=== PATIENT | female | born 1995 | race Native Hawaiian/Other Pacific Islander ===

== ENCOUNTER 2022-02-05 08:34 | Outpatient (CLI) | payer OTHER, SELFPAY ==
[2022-02-05 08:50] LABS: Hemoglobin* 10.8 gm/dL (12.0-16.0)
[2022-02-06 20:13] LABS: Rapid Plasma Reagin (RPR) Non Reactive (Non Reactive)
== END 2022-02-05 08:35 | disposition home or self-care (01) ==
LOC: NFLDREF 08:35
PROVIDERS: PCP Physician Assistant Medical; Visit Provider Obstetrics & Gynecology
DX: Z34.90 Encounter for supervision of normal pregnancy, unspecified, unspecified trimester (principal)
CPT/HCPCS: 85018; 86592

== ENCOUNTER 2022-02-09 08:35 | Outpatient (CLI) | payer OTHER, SELFPAY ==
[2022-02-09 13:58] LABS: Glucose 1 Hour Gest 173 mg/dl (70-180)
[2022-02-09 17:28] LABS: Glucose GTT-Gestational 3 Hr 85 mg/dl (70-140)
[2022-02-12 15:26] LABS: Glucose Fasting Check 88 mg/dl (60-115)
--- OUTSIDE RECORDS SUMMARY | 2022-03-02 17:13 | XMS_ITS | Encounter Summary ---
:1995 Author Organization [facility] Address [address] [place] [id number] Care Team Providers Name Role Phone Doctor, None Primary Care Provider Unavailable Caterina Elkins MD Primary Care Provider [phone] Reason for Visit Reason Comments Well Child Encounter Details Date Type Department Care Team Description 02/22/2013 Office Visit [facility] Caterina Elkins infant or child health check (Primary Dx); Clinic Héctor Pineda MD Seasonal allergic rhinitis [address] [place] [id number] [phone] (Wo rk) Social History Tobacco Use Types Packs/Day Years Used Date Never Smoker Alcohol Use Standard Drinks/Week Comments No 0 (1 standard drink = 0.6 oz pure alcoho l) Sex Assigned at Date Recorded Not on file documented as of this encounter Last Filed Vital Signs Vital Sign Reading Time Taken Comments Blood Pressure 110/60 02/22/2013 8:33 AM CDT Pulse - - Temperature - - Respiratory Rate - - Oxygen Saturation - - Inhaled Oxygen Concentration - - Weight 79.8 kg (176 lb) 02/22/2013 8:33 AM CDT Height 175.3 cm (5' 9) 02/22/2013 8:33 AM CDT Body Mass Index 25.99 02/22/2013 8:33 AM CDT Body Mass Index Percentile 89.93 % 02/22/2013 8:33 AM CD T Growth Chart: CDC (Girls, 2-20 Years) documented in this encounter Patient Instructions Patient InstructionsCaterina Elkins MD - 02/22/2013 8:47 AM CDT 17 year old Well Child Check Growth Chart Detail 04/05/2006 04/05/2006 07/11/2010 07/11/2010 02/22/2013 Height - 4' 7.75 - 5' 7.75 5' 9 Weight - 95 lb - 166 lb 176 lb BMI (Calculated) - - - 25.48 26.05 Height percentile 91.5 - 98.0 - 97.6 Weight percentile 96.3 - 97.5 - 95.8 Body Mass Index percentile 94.5 - 93.3 - 89.9 Percentiles: (see actual numbers above) Weight: 95.81%ile based on CDC 2-20 Years qtcqdu-sgp-rks data. Length: 97.58%ile based on CDC 2-20 Years [id number] data. BMI: 89.9%ile based on CDC 2-20 Years BMI-for-age data. Teen Immunizations: Vaccine How Often Disease Prevented Recommended For: Hepatitis A (HepA) 2 doses Hepatitis A, an infection that can cause acute liver inflammation and jaundice (yellowing of the skin and whites of the eyes) Anyone who hasn???t been vaccinated Human Papillomavirus (HPV) 3 doses Human papillomavirus, a virus that causes genital warts and may increase risk of cervical, vaginal, and vulvar cancers Girls starting at age 11 or 12 (minimum age 9);boys between ages 9 and 18 Next office visit: At 18 years of age. No shots required, but she should get a yearly influenza vaccine, usually in April or May. Well Child Checkup: 14-18 Years During the teen years, it???s important to keep having yearly checkups. Your teen may be embarrassedabout having a checkup. Reassure your teen that the exam is normal and necessary. Also be aware thatthe healthcare provider may ask to talk with your child without you in the exam room. Stay involved in your teen???s life. Make sure your teen knows you???re always there when he or she needs to talk. School and Social Issues Here are some topics you, your teen, and the healthcare provider may want to discuss during this visit: ?? School performance. How is your child doing in school? Is homework finished on time? Does your child stay organized? These are skills you can help with. Keep in mind that a drop in school performance can be a sign of other problems. ?? Friendships. Do you like your child???s friends? Do the friendships seem healthy? Make sure to talk to your teen about who his or her friends are and how they spend time together. Peer pressure can be a problem among teenagers. ?? Life at home. How is your child???s behavior? Does he or she get along with others in the family?Is he or she respectful of you, other adults, and authority? Does your child participate in family events, or does he or she withdraw from other family members? ?? Risky behaviors. Many teenagers are curious about drugs, alcohol, smoking, and sex. Talk openly about these issues. Answer your child???s questions, and don???t be afraid to ask questions of your own. If you???re not sure how to approach these topics, talk to the healthcare provider for advice. Puberty Your teen may still be experiencing some of the changes of puberty, such as: ?? Acne and body odor. Hormones that increase during puberty can cause acne (pimples) on the face and body. Hormones can also increase sweating and cause a stronger body odor. ?? Body changes. The body grows and matures during puberty. Hair will grow in the pubic area and on other parts of the body. Girls grow breasts and menstruate (have monthly periods). A boy???s voice changes, becoming lower and deeper. As the penis matures, erections and wet dreams will start to happen. Talk to your teen about what to expect, and help him or her deal with these changes when possible. ?? Emotional changes. Along with these physical changes, you???ll likely notice changes in your teen???s personality. He or she may develop an interest in dating and becoming ???more than friends?? with other kids. Also, it???s normal for your teen to be collier. Try to be patient and consistent. Encourage conversations, even when he or she doesn???t seem to want to talk. No matter how your teen acts,he or she still needs a parent. Nutrition and Exercise Tips Your teenager likely makes his or her own decisions about what to eat and how to spend free time. You can???t always have the final say, but you can encourage healthy habits. Your teen should: ?? Get at least 30-60 minutes of activity every day. This time can be broken up throughout the day. After-school sports, dance or martial arts classes, riding a bike, or even walking to school or a friend???s house counts as activity. ?? Limit ???screen time?? to 1-2 hours each day. This includes time spent watching TV, playing video games, using the computer, and texting. If your teen has a TV, computer, or video game console in the bedroom, consider replacing it with a music player. ?? Eat healthy. Your child should eat fruits, vegetables, lean meats, and whole grains every day. Less healthy foods--like danish fries, candy, and chips--should be eaten rarely. Some teens fall into the trap of snacking on junk food and fast food throughout the day. Make sure the kitchen is stocked with healthy options for after-school snacks. If your teen does choose to eat junk food, consider making him or her buy it with his or her own money. ?? Eat 3 meals a day. A lot of kids skip breakfast and even lunch. Not only is this unhealthy, it can also hurt school performance. Make sure your teen eats breakfast. Prepare a bag lunch to bring to school (or have your child make it). ?? Have at least one family meal with you each day. Busy schedules often limit time for sitting and talking. Sitting and eating together allows for family time. It also lets you see what and how your child eats. ?? Limit soda and juice drinks. A small soda is okay once in a while. But it???s no substitute for healthier drinks. Sports and juice drinks are no better. Most of the time, water and low-fat or nonfatmilk are the best choices. Hygiene Tips ?? Teenagers should bathe or shower daily and use deodorant. ?? Let the healthcare provider know if you or your teen have questions about hygiene or acne. ?? Bring your teen to the dentist at least twice a year for teeth cleaning and a checkup. ?? Remind your teen to brush and floss his or her teeth before bed. Sleeping Tips During the teen years, sleep patterns may change. Many teenagers have a hard time falling asleep, which can lead to sleeping late the next morning. Here are some tips to help your teen get the rest he or she needs: ?? Encourage your teen to keep a consistent bedtime, even on weekends. Sleeping is easier when the body follows a routine. Don???t let your teen stay up too late at night or sleep in too long in the morning. ?? Help your teen wake up, if needed. Go into the bedroom, open the blinds, and get your teen out ofbed--even on weekends or during school vacations. ?? Being active during the day will help your child sleep better at night. ?? Discourage use of the TV, computer, or video games for at least an hour before your teen goes to bed. (This is good advice for parents, too!) ?? Make a rule that cell phones must be turned off at night. Safety Tips ?? Set rules for how your teen can spend time outside of the house. Give your child a nighttime curfew. If your child has a cell phone, check in periodically by calling to ask where he or she is and what he or she is doing. ?? Make sure cell phones and portable music players are used safely and responsibly. Help your teen understand that it is dangerous to talk on the phone, text, or listen to music with headphones while he or she is riding a bike or walking outdoors, especially when crossing the street. ?? Constant loud music can cause hearing damage, so monitor your teen???s music volume. Many music players let you set a limit for how loud the volume can be turned up. Check the directions for details. ?? When your teen is old enough for a airport driver???s license, encourage safe driving. Teach your teen toalways wear a seat belt, drive the speed limit, and follow the rules of the road. Do not allow your teenager to text or talk on a cell phone while driving. (And don???t do this yourself! Remember, you set an example.) ?? Set rules and limits around driving and use of the car. If your teen gets a ticket or has an accident, there should be consequences. Driving is a privilege that can be taken away if your child doesn???t follow the rules. ?? Teach your child to make good decisions about drugs, alcohol, sex, and other risky behaviors. Work together to come up with strategies for staying safe and dealing with peer pressure. And make sure your teenager knows he or she can always come to you for help. Tests and Vaccinations If you have a strong family history of high cholesterol, your teen???s blood cholesterol may be tested at this visit. Based on recommendations from the [employer], at this visityour child may receive the following vaccinations: ?? Hepatitis B ?? Meningococcal ?? Tetanus, diphtheria, and pertussis Recognizing Signs of Depression It???s normal for teenagers to have extreme mood swings. This is the result of their changing hormones. It???s also just a part of growing up. But sometimes a teenager???s mood swings are signs of a larger problem. If your teen is always depressed, you should be concerned. Other signs of depression include: ?? Use of drugs or alcohol ?? Problems in school and at home ?? Frequent episodes of running away ?? Thoughts or talk of or suicide ?? Withdrawal from family and friends ?? Sudden changes in eating or sleeping habits ?? Sexual promiscuity or unplanned ?? Hostile behavior or rage ?? Loss of pleasure in life Depressed teens can be helped with treatment. Talk to your child???s healthcare provider. Or check with your local mental health center, social service agency, or hospital. Assure your teen that his orher pain can be eased. Offer your love and support. And if your teen talks about or suicide, seek help right away. Next checkup at: PARENT NOTES: ?? [phone] [facility], [address] [place] [address], [place] [address]. All rights reserved. This information is not intended as a substitute for professional medical care. Always follow your healthcare professional's instructions. documented in this encounter Progress Notes Caterina Elkins MD - 02/22/2013 8:34 AM CDT Sonia Allen is a 17 year old female here for a routine health maintenance visit, accompanied by her mother and sister. QUESTIONS/CONCERNS: Bilateral ear pain / plugged FAMILY/ SOCIAL HISTORY Child lives with: mother, brother and 2 sisters Recent family changes/social stressors: none noted Family History: No changes since last physical Language(s) spoken at home: Kyr[place]z MNV[facility] does apply for the following reason: [facility] Care Program (MHCP) enrollee: [place] [facility] ([place]), [facility], or a Prepaid Medical Assistance Program (PMAP) (ages covered = 0-18). ENVIRONMENTAL RISK ASSESSMENT Is your child around anyone who smokes? NO Seat belt? YES Bike/sport helmet? YES TB exposure? NO Pets in the home? NO Guns/firearms in the home? no Water source: BOTTLED WATER CHICKEN POX HISTORY: Patient has had chicken pox TEEN RISK SCREEN: Form not indicated at this visit. VISION Wears glasses? YES, glasses worn for testing Right eye: 20/40 Left eye: 20/30 Both eyes: 20/20 Question Validity: no HEARING Right Ear: 500 Hz: RESPONSE- on Level: 20 db 1000 Hz: RESPONSE- on Level: 20 db 2000 Hz: RESPONSE- on Level: 20 db 4000 Hz: RESPONSE- on Level: 20 db Left Ear: 500 Hz: RESPONSE- on Level: 20 db 1000 Hz: RESPONSE- on Level: 20 db 2000 Hz: RESPONSE- on Level: 20 db 4000 Hz: RESPONSE- on Level: 20 db Question Validity: no REQUIRED VITAL SIGNS COMPLETED: yes BP 110/60 Ht 5' 9 (1.753 m) Wt 176 lb (79.833 kg) BMI 25.99 kg/m2 [facility] 02/13/2013 97.58%ile based on CDC 2-20 Years pleckie-esh-lmg data. 95.81%ile based on CDC 2-20 Years ewqvto-yqk-psx data. 89.9%ile based on CDC 2-20 Years BMI-for-age data. No sports physical needed. Staff signature: Zena Boggs LPN HEALTH HISTORY SINCE LAST VISIT No surgery, major illness or injury since last physical exam Cardiac risk assessment: none Immunization History Administered Date(s) Administered ? ? DTAP (<7y) 1997, 1997, 1997, 06/09/2001, 03/25/2004 ??? HIB 1997, 1997, 1997 ??? Hepatitis A 07/11/2010 ??? Hepatitis B 1997, 1997, 03/20/1998 ??? Human Papilloma Virus 07/11/2010 ??? IPV 1997, 1997, 06/09/2001, 03/25/2004 ??? MMR 06/09/2001, 03/25/2004 ??? Meningococcal (Menactra) 07/11/2010 ??? TDAP (ADACEL AGES 11-64) 07/11/2010 ??? Varicella Not Indicated - By Hx 03/26/2000 Allergies Allergen Reactions ??? No Known Allergies DAILY ACTIVITIES NUTRITION: good appetite, eats variety of foods, dairy/ calcium: , meat, fruits and vegetables SLEEP No concerns, sleeps well through night ELIMINATION Normal bowel movements and Normal urination EXERCISE/ RECREATion: walking ACTIVITIES: Age appropriate activities EDUCATION / EMPLOYMENT Concerns: no School: [employer] Grade:9th MENTAL HEALTH Concerns: no MENSTRUAL HISTORY Normal SEXUALITY Dating: no Sexual activity: no SUBSTANCE ABUSE Smoking: no Alcohol: no Drugs: no VISION: For details see above, normal HEARING: For details see above, normal ROS GENERAL: See health history, nutrition and daily activities SKIN: No rash, hives or significant lesions HEENT: Hearing/vision: see above. No eye redness/discharge, nasal congestion, sneezing, snoring RESP: No cough, wheezing, SOB CV: No cyanosis, palpitations, syncope GI: See nutrition and elimination : See elimination MS: No swelling, arthralgia, weakness, gait problem NEURO: No headaches PSYCH: See development and behavior, or mental health EXAM GENERAL: Active, alert, in no acute distress. SKIN: Clear. No significant rash, abnormal pigmentation or lesions HEAD: Normocephalic EYES: Sharp optic discs. Pupils equal, round, reactive, Extraocular muscles intact. Normal conjunctivae. EARS: Normal canals. Tympanic membranes are normal; villa and translucent. NOSE: ENT: nasal mucosa appears pale and edematous MOUTH/THROAT: Clear. No oral lesions. Teeth without obvious abnormalities. NECK: Supple, no masses. No thyromegaly. LYMPH NODES: No adenopathy LUNGS: Clear. No rales, rhonchi, wheezing or retractions HEART: Regular rhythm. Normal S1/S2. No murmurs. Normal pulses. ABDOMEN: Soft, non-tender, not distended, no masses or hepatosplenomegaly. Bowel sounds normal. NEUROLOGIC: No focal findings. Cranial nerves grossly intact: DTR's normal. Normal gait, strength and tone BACK: Spine is straight, no scoliosis. EXTREMITIES: Full range of motion, no deformities -F: Normal female external genitalia, Jelani stage 4. BREASTS: Jelani stage 4. No abnormalities. ANTICIPATORY GUIDANCE The following topics were discussed: SOCIAL/ FAMILY: Peer pressure Increased responsibility Parent/ teen communication School/ homework NUTRITION: Healthy food choices Calcium Weight management HEALTH / SAFETY: Adequate sleep/ exercise Dental care Drugs, ETOH, smoking Body image Seat belts Bike/ sport helmets SEXUALITY: Menstruation Dating/ relationships Encourage abstinence ASSESSMENT Well teen with normal growth and development 1. Allergic rhinitis. Will try OTC antihistamine per EPIC orders. Call or return if not improving in1-2 weeks. PLAN 89.9%ile based on CDC 2-20 Years BMI-for-age data. No weight concerns. Immunizations ?? No previous significant reactions to immunizations. Parent has no questions or concerns about thevaccines administered today. See other orders in Epic[employer] Referrals/Ongoing Specialty care: No Dental visit recommended: Yes RTC: 18 year RHM visit Caterina Elkins M.D. Pediatrics documented in this encounter Nursing Notes 02/22/2013 9:00 AM CDT >> ZENAIDA James Feb 22, 2013 8:43 AM VISION:wears glasses for reading,pt did not have glasses for test Right eye: 20/30 Left eye: 20/30 Right & Left eyes: 20/40 HEARING FREQUENCY: Right Ear: 500 Hz: 20 db HL 1000 Hz: 20 db HL 2000 Hz: 20 db HL 4000 Hz: 20 db HL Left Ear: 500 Hz: 20 db HL 1000 Hz: 20 db HL 2000 Hz: 20 db HL 4000 Hz: 20 db HL >> SLIM BOGGS Erika Feb 22, 2013 8:37 AM Patient presents with: Well Child Initial BP 110/60 Ht 5' 9 (1.753 m) Wt 176 lb (79.833 kg) BMI 25.99 kg/m2 LMP 02/13/2013 Estimated Body mass index is 25.99 kg/(m^2) as calculated from the following: Height as of this encounter: 5' 9(1.753 m). Weight as of this encounter: 176 lb(79.833 kg). BP completed using cuff size: regular documented in this encounter Plan of Treatment Not on filedocumented as of this encounter Procedures Procedure Name Priority Date/Time Associated Diagnosis Comme nts HC SCREENING TEST, Routine 02/22/2013 9:04 AM CDT Routine infa nt or child PURE TONE, AIR ONLY health check documented in this encounter Visit Diagnoses Diagnosis Routine or child health check - P rimary Seasonal allergic rhinitis Allergic rhinitis, cause unspecified documented in this encounter Care Teams Donkey Doctor Relationship Specialty Start Date End Date Doctor, Juan, PCP - General 09/08/01 03/09/13 Caterina Elkins MD PCP - General Pediatrics 03/10/13 Solange E AMANDA [address] [address] documented as of this encounter
--- OUTSIDE RECORDS SUMMARY | 2022-03-02 17:13 | XMS_ITS | Encounter Summary ---
:1995 Author Organization [facility] Address [address] [place] [address] Care Team Providers Name Role Phone Doctor, None Primary Care Provider Unavailable Reason for Visit Reason Comments Derm Problem Encounter Details Date Type Department Care Team Description 03/23/2004 Office Visit [facility] Surekha Garrido [facility] Haugan MD Jamia (Primary Dx) [address] [facility] [place], [place] [address] [facility] [address] [place], [place] [phone] (Wo rk) Social History Tobacco Use Types Packs/Day Years Used Date Never Assessed Sex Assigned at Date Recorded Not on file documented as of this encounter Last Filed Vital Signs Vital Sign Reading Time Taken Comments Blood Pressure - - Pulse - - Temperature 36.7 ??C (98 ??F) 03/23/2004 2:00 PM CDT Respiratory Rate - - Oxygen Saturation - - Inhaled Oxygen Concentration - - Weight 28.8 kg (63 lb 8 oz) 03/23/2004 2:00 PM CDT Height 128.3 cm (4' 2.5) 03/23/2004 2:00 PM CDT Body Mass Index 17.51 03/23/2004 2:00 PM CDT Body Mass Index Percentile 84.50 % 03/23/2004 2:00 PM CD T Growth Chart: CDC (Girls, 2-20 Years) documented in this encounter Progress Notes 03/23/2004 2:00 PM CDT Sonia Allen is a 8 year old female here with maternal grandmother with concerns regarding rash. Started 4 days ago, spreading. Started on back. Large area, now with multiple smaller lesions on ba ck, neck and shoulders. Rash does seem to itch. No current treatments. She did recently [place]. No current illness, no fever, no cold sx. OBJECTIVE: Temp (Src) 98 (Or al) Ht 4' 2.5 (1.28m) Wt 63 lbs 8 oz (28.8kg) General appearance: healthy, alert and no distres s Eyes: normal Ears: R TM - normal: no effusions, no erythema, and normal landmarks, L TM - normal: n o effusions, no erythema, and normal landmarks Nose: normal Oropharynx: moist mucosa, no erythema or exudates Neck: normal, supple and no adenopathy Lungs: clear to auscultation bilaterally Heart: regul ar rate and rhythm and no murmurs, clicks, or gallops Skin: large oval shaped lesion right side chest with raised border and scaling present. Multiple smaller lesions on neck, shoulders and face. SESSMENT: Tinea corporis vs pityriasis rosea PLAN: fungal culture sent. Will try treatment with ant ifungal cream, await culture. Follow up if worsening or increased itching. Discussed pityriasis and resolution in 4-6 weeks. documented in this encounter Nursing Notes 03/23/2004 2:00 PM CDT >> LELIA JOHNSON 03/23/2004 1:48 pm Patient here with bumpy rash all over her body. Does not complain of itching, noticed it yesterday. Lelia Johnson WELDER 2ND SHIFT documented in this encounter Plan of Treatment Not on filedocumented as of this encounter Procedures Procedure Name Priority Date/Time Associated Diagnosis Comme nts HCL CULTURE, Routine 03/23/2004 2:29 PM Skin Disorders Nec Res ults for this FUNGUS, CDT procedure are i n SKIN,HAIR,NAIL the results section. documented in this encounter Results FUNGUS CULTURE, SKIN,HAIR,NAIL (03/23/2004 2:29 PM CDT) [facility] Method Time Signature Specimen Skin [facility] Description [facility] Culture Micro No growth [facility] after 28 UNIV[facility]ITY days [facility] Report status FINAL [facility] [id number] [facility] Specimen Anatomical Collection Method Collection Time Receive d Time (Source) Location / / Volume Laterality SPECIMEN FROM SKIN 03/23/2004 2:29 PM 2:34 / Unknown CDT PM CDT Surekha Garrido MD LABORATORY Performing Organization Address City/State/ZIP Code Phon e Number [facility] [address] [place] [address] [facility] documented in this encounter Visit Diagnoses Diagnosis Other specified disorder of skin - Prima ry documented in this encounter Care Teams Associate Professor Of Kinesiology Relationship Specialty Start Date End Date Doctor, None, PCP - General 09/08/01 03/09/13 documented as of this encounter
--- OUTSIDE RECORDS SUMMARY | 2022-03-02 17:13 | XMS_ITS | Encounter Summary ---
:1995 Author Organization [place] Address [address] [place] [address] Care Team Providers Name Role Phone Caterina Elkins MD Primary Care Provider [phone] Reason for Visit Reason Comments Well Child 18 year px. Encounter Details Date Type Department Care Team Description 03/13/2014 Office Visit [facility] Karyna Bhandari or child health check (Primary Dx); [facility] MD Linda Allergic state, initial encounter; [address] Dietary surve illance and counseling [facility] [address] [place] [phone] Social History Tobacco Use Types Packs/Day Years Used Date Never Smoker Smokeless Tobacco: Never Used Alcohol Use Standard Drinks/Week Comments No 0 (1 standard drink = 0.6 oz pure alcoho l) Sex Assigned at Date Recorded Not on file documented as of this encounter Last Filed Vital Signs Vital Sign Reading Time Taken Comments Blood Pressure 116/72 03/13/2014 9:43 AM CDT Pulse - - Temperature 36.9 ??C (98.4 ??F) 03/13/2014 9:43 AM CDT Respiratory Rate - - Oxygen Saturation - - Inhaled Oxygen Concentration - - Weight 80.3 kg (177 lb) 03/13/2014 9:43 AM CDT Height 175.3 cm (5' 9) 03/13/2014 9:43 AM CDT Body Mass Index 26.14 03/13/2014 9:43 AM CDT Body Mass Index Percentile 88.56 % 03/13/2014 9:43 AM CD T Growth Chart: CDC (Girls, 2-20 Years) documented in this encounter Patient Instructions Patient InstructionsFaby Celeste, GUARD CHIEF - 03/13/2014 9:35 AM CDT Preventive Care at the 15 - 18 Year Visit Growth Percentiles & Measurements Weight: 177 lbs 0 oz / 80.29 kg / 95%ile based on [facility] 2-20 Years [id number] data using vitals from 03/13/2014. Length: 5' 9 / 175.3 cm 97%ile based on [facility] 2-20 Years [id number] data using vitals from 03/13/2014. BMI: Body mass index is 26.13 kg/(m^2). 89%ile based on [facility] 2-20 Years BMI-for-age data using vitalsfrom 03/13/2014. Blood Pressure: 53.3% systolic and 62.8% diastolic of BP percentile by age, sex, and height. Next Visit ??? Continue to see your health care provider every one to two years for preventive care. Nutrition ??? It???s very important to eat breakfast. This will help you make it through the morning. ??? Sit down with your family for a meal on a regular basis. ??? Eat healthy meals and snacks, including fruits and vegetables. Avoid salty and sugary snack foods. ??? Be sure to eat foods that are high in calcium and iron. ??? Avoid or limit caffeine (often found in soda pop). Sleeping ??? Your body needs about 9 hours of sleep each night. ??? Keep screens (TV, computer, and video) out of the bedroom / sleeping area. They can lead to poorsleep habits and increased obesity. Health ??? Limit TV, computer and video time. ??? Set a goal to be physically fit. Do some form of exercise every day. It can be an active sport like skating, running, swimming, a team sport, etc. ??? Try to get 30 to 60 minutes of exercise at least three times a week. ??? Make healthy choices: don???t smoke or drink alcohol; don???t use drugs. In your teen years, you can expect . . . ??? To develop or strengthen hobbies. ??? To build strong friendships. ??? To be more responsible for yourself and your actions. ??? To be more independent. ??? To set more goals for yourself. ??? To use words that best express your thoughts and feelings. ??? To develop self-confidence and a sense of self. ??? To make choices about your education and future career. ??? To see big differences in how you and your friends grow and develop. ??? To have body odor from perspiration (sweating). Use underarm deodorant each day. ??? To have some acne, sometimes or all the time. (Talk with your doctor or nurse about this.) ??? Most girls have finished going through puberty by 15 to 16 years. Often, boys are still growing and building muscle mass. Sexuality ??? It is normal to have sexual feelings. ??? Find a supportive person who can answer questions about puberty, sexual development, sex, abstinence (choosing not to have sex), sexually transmitted diseases (STDs) and control. ??? Think about how you can say no to sex. Safety ??? Accidents are the greatest threat to your health and life. ??? Avoid dangerous behaviors and situations. For example, never drive after drinking or using drugs. Never get in a car if the regional company hazmat tanker driver has been drinking or using drugs. ??? Always wear a seat belt in the car. When you drive, make it a rule for all passengers to wear seat belts, too. ??? Stay within the speed limit and avoid distractions. ??? Practice a fire escape plan at home. Check smoke detector batteries twice a year. ??? Keep electric items (like blow dryers, razors, curling irons, etc.) away from water. ??? Wear a helmet and other protective gear when bike riding, skating, skateboarding, etc. ??? Use sunscreen to reduce your risk of skin cancer. ??? Learn first aid and CPR (cardiopulmonary resuscitation). ??? Avoid peers who try to pressure you into risky activities. ??? Learn skills to manage stress, anger and conflict. ??? Do not use or carry any kind of weapon. ??? Find a supportive person (teacher, parent, health provider, counselor) whom you can talk to whenyou feel sad, angry, lonely or like hurting yourself. ??? Find help if you are being abused physically or sexually, or if you fear being hurt by others. As a teenager, you will be given more responsibility for your health and health care decisions. While your parent or guardian still has an important role, you will likely start spending some time alonewith your health care provider as you get older. Some teen health issues are actually considered confidential, and are protected by law. Your health care team will discuss this and what it means with you. Our goal is for you to become comfortable and confident caring for your own health. documented in this encounter Progress Notes Karyna Bhandari MD - 03/13/2014 9:35 AM CDT SUBJECTIVE: Sonia Allen is a 18 year old female, here for a routine health maintenance visit, accompanied by her mother and sister. Patient was roomed by: Faby Celeste CMA QUESTIONS/CONCERNS: allergies, feels like there is water in left ear. HOME Family members in house: mother, brother and 2 sisters Language(s) spoken at home: Burmese Recent family changes/social stressors: none noted HEALTH RISKS TB exposure: No Cardiac risk assessment: none VISION Wears glasses? YES, glasses NOT worn for testing Right eye: 20/40 Left eye: 20/70 Both eyes: 20/40 Question Validity: no HEARING Right Ear: 500 [...] on Level: 20 db Question Validity: no DENTAL Dental health HIGH risk factors: none Water source: city water SPORTS QUESTIONNAIRE: School: [employer] Grade: 10 Sports: Cheerleading Sports Questionnaire sent to scan, see letter. HNSAFETY Car seat belt always worn: Yes ELECTRONIC MEDIA < 2 hours/ day EDUCATION School: [employer] Grade: 10 School performance / Academic skills: doing well in school Concerns: no ACTIVITIES Do you get at least 60 minutes per day of physical activity, including time in and out of school: Yes Extra-curricular activities: Organized / team sports: cheerleading DIET Do you get at least 4 helpings of a fruit or vegetable every day: Yes Do you eat breakfast every day: Yes How many servings of juice, non-diet soda, punch or sports drinks per day: some Does your family eat out (take out, delivery, fast food, restaurant) more than one day per week: No SLEEP No concerns, sleeps well through night No Known Allergies Immunization History Administered Date(s) Administered ? ? DTAP (<7y) 1997, 1997, 1997, 06/09/2001, 03/25/2004 ??? HIB 1997, 1997, 1997 ??? Hepatitis A 07/11/2010, 02/22/2013 ??? Hepatitis B 1997, 1997, 03/20/1998 ??? Human Papilloma Virus 07/11/2010, 02/22/2013, 07/19/2013 ??? IPV 1997, 1997, 06/09/2001, 03/25/2004 ??? MMR 06/09/2001, 03/25/2004 ??? Meningococcal (Menactra) 07/11/2010, 07/19/2013 ??? TDAP (ADACEL AGES 11-64) 07/11/2010 ??? Varicella Not Indicated - By Hx 03/26/2000 Patient Active Problem List Diagnosis ??? MYOPIA ??? Seasonal allergic rhinitis HEALTH HISTORY SINCE LAST VISIT No surgery, major illness or injury since last physical exam DRUGS Smoking: no Passive smoke exposure: no Alcohol: no Drugs: no SEXUALITY Sexual attraction: opposite sex Sexual activity: No control: abstinence STD: no Unwanted sex: never PSYCHO-SOCIAL/DEPRESSION General screening: No screening tool used No concerns Patient Active Problem List Diagnosis ??? MYOPIA ??? Seasonal allergic rhinitis No Known Allergies Immunization History Administered Date(s) Administered ? ? DTAP (<7y) 1997, 1997, 1997, 06/09/2001, 03/25/2004 ??? HIB 1997, 1997, 1997 ??? Hepatitis A 07/11/2010, 02/22/2013 ??? Hepatitis B 1997, 1997, 03/20/1998 ??? Human Papilloma Virus 07/11/2010, 02/22/2013, 07/19/2013 ??? IPV 1997, 1997, 06/09/2001, 03/25/2004 ??? MMR 06/09/2001, 03/25/2004 ??? Meningococcal (Menactra) 07/11/2010, 07/19/2013 ??? TDAP (ADACEL AGES 11-64) 07/11/2010 ??? Varicella Not Indicated - By Hx 03/26/2000 ROS GENERAL: See health history, nutrition and daily activities SKIN: No rash, hives or significant lesions HEENT: Hearing/vision: see above. No eye, nasal, ear symptoms. RESP: No cough or other concerns CV: No concerns GI: See nutrition and elimination. No concerns. : See elimination. No concerns NEURO: No headaches or concerns. OBJECTIVE: EXAM BP 116/72 Temp(Src) 98.4 ??F (36.9 ??C) (Oral) Ht 5' 9 (1.753 m) Wt 177 lb (80.287 kg) BMI 26.13 kg/m2 LMP 03/06/2014 97%ile based on CDC 2-20 Years ukhmpja-lch-nfz data using vitals from 03/13/2014. 95%ile based on CDC 2-20 Years ssgrsg-yrx-fyd data using vitals from 03/13/2014. 89%ile based on CDC 2-20 Years BMI-for-age data using vitals from 03/13/2014. 53.3% systolic and 62.8% diastolic of BP percentile by age, sex, and height. GENERAL: Active, alert, in no acute distress. SKIN: Clear. No significant rash, abnormal pigmentation or lesions HEAD: Normocephalic EYES: Sharp optic discs. Pupils equal, round, reactive, Extraocular muscles intact. Normal conjunctivae. EARS: Normal canals. Tympanic membranes are normal; villa and translucent. NOSE: Normal without discharge. MOUTH/THROAT: Clear. No oral lesions. Teeth without [...] -F: Normal female external genitalia, Jelani stage IV. BREASTS: Jelani stage IV. No abnormalities. ASSESSMENT/PLAN: Encounter Diagnoses Name Primary? Routine or child health check Yes ??? Allergic state, initial encounter ??? Dietary surveillance and counseling Anticipatory Guidance The following topics were discussed: SOCIAL/ FAMILY: Peer pressure Parent/ teen communication TV/ media School/ homework Future plans/ College NUTRITION: Healthy food choices Calcium Vitamins/ supplements Weight management HEALTH / SAFETY: Adequate sleep/ exercise Dental care Drugs, ETOH, smoking Body image Seat belts SEXUALITY: Menstruation Dating/ relationships Encourage abstinence Contraception Safe sex/ STDs Preventive Care Plan Immunizations ?? Reviewed, up to date Referrals/Ongoing Specialty care: No See other orders in [facility]. Dental visit recommended: Yes Vision: abnormal--did not have her glasses Hearing: normal Cleared for sports: Yes BMI at 89%ile based on CDC 2-20 Years BMI-for-age data using vitals from 03/13/2014. OBESITY ACTION PLAN Exercise Counseling Performed Nutrition Counseling Performed [id number] FOLLOW-UP: in 1 year for a Preventive Care visit Karyna Bhandari MD, MD [facility] documented in this encounter Nursing Notes Faby Celeste CMA - 03/13/2014 9:48 AM CDT Chief Complaint Patient presents with ??? Well Child 18 year px. Initial BP 116/72 Temp(Src) 98.4 ??F (36.9 ??C) (Oral) Ht 5' 9 (1.753 m) Wt 177 lb (80.287 kg) BMI 26.13 kg/m2 LMP 03/06/2014 Estimated body mass index is 26.13 kg/(m^2) as calculated from the following: Height as of this encounter: 5' 9 (1.753 m). Weight as of this encounter: 177 lb (80.287 kg). BP completed using cuff size: regular Faby Celeste CMA documented in this encounter Plan of Treatment Not on filedocumented as of this encounter Procedures Procedure Name Priority Date/Time Associated Diagnosis Comme nts HC SCREENING TEST, Routine 03/13/2014 11:44 AM Routine infant or child PURE TONE, AIR ONLY CDT health check documented in this encounter Visit Diagnoses Diagnosis Dietary surveillance and counseling Allergic state, initial encounter documented in this encounter Care Teams Shingles Roofer Helper Relationship Specialty Start Date End Date Caterina Elkins MD PCP - General Pediatrics 03/10/13 [address] [address] documented as of this encounter
--- OUTSIDE RECORDS SUMMARY | 2022-03-02 17:13 | XMS_ITS | Clinical Summary ---
:1995 Author Organization [place] Address [address] [place] [address] Care Team Providers Name Role Phone Caterina Elkins MD Primary Care Provider [phone] Allergies No known active allergies Medications Medication Sig Dispensed Refills Start Date End Date Status NO ACTIVE MEDICATIONS 0 07/11/2010 Active DiphenhydrAMINE HCl 0 Active (BENADRYL PO) cetirizine (ZYRTEC) 10 Take 1 tablet 90 tablet 1 03/13/2014 Active MG tabletIndications: (10 mg) by mouth Allergic state, initial every evening encounter Active Problems Problem Noted Date Seasonal allergic rhinitis 03/10/2013 Myopia 03/25/2004 Immunizations Name Administration Dates Next Due DTAP (<7y) 03/25/2004, 06/09/2001, 1997, 1997, 1997 HEPA 02/22/2013, 07/11/2010 HPV 07/19/2013, 02/22/2013, 07/11/2010 HepB 03/20/1998, 1997, 1997 Hib (PRP-T) 1997, 1997, 1997 MMR 03/25/2004, 06/09/2001 Meningococcal (Menactra??) 07/19/2013, 07/11/2010 Poliovirus, inactivated (IPV) 03/25/2004, 06/09/2001, 1997, 1997 TDAP Vaccine (Adacel) 07/11/2010 Varicella Pt Report Hx of 03/26/2000 Varicella/Chicken Pox Family History Medical History Relation Comments Asthma Brother Relation Status Comments Brother Social History Tobacco Use Types Packs/Day Years Used Date Never Smoker Smokeless Tobacco: Never Used Alcohol Use Standard Drinks/Week Comments No 0 (1 standard drink = 0.6 oz pure alcoho l) Sex Assigned at Date Recorded Not on file Last Filed Vital Signs Vital Sign Reading [...] Mass Index 26.14 03/13/2014 9:43 AM CDT Plan of Treatment Health Maintenance Due Date Last Done Comments ADVANCE CARE PLANNING 1995 ANNUAL REVIEW OF HM ORDERS 1997 COVID-19 Vaccine (#1) 1997 PREVENTIVE CARE VISIT 03/13/2015 03/13/2014, 02/22/2013, 07/11/2010, Additional history exists HEPATITIS C SCREENING 2015 PAP 2018 DTAP/TDAP/TD IMMUNIZATION 07/11/2020 07/11/2010, 03/25/2004 , (6 - Td or Tdap) 06/09/2001, Additional history exists PHQ-2 (once per calendar 07/25/2021 year) INFLUENZA VACCINE (#1) 2022 HEPATITIS B IMMUNIZATION Completed 03/20/1998, 1997, 1997 IPV IMMUNIZATION Completed 03/25/2004, 06/09/2001, 1997, Additional history exists HPV IMMUNIZATION Completed 07/19/2013, 02/22/2013, 07/11/2010 MENINGITIS IMMUNIZATION Completed 07/19/2013, 07/11/2010 HIV SCREENING Completed 03/19/2014 Pneumococcal Vaccine: Aged Out No longer eligible Pediatrics (0 to 5 Years) based on patient's age and At-Risk Patients (6 to to co mplete this topic 64 Years) Care Teams Cognos Relationship Specialty Start Date End Date Caterina Elkins MD PCP - General Pediatrics 03/10/[address] [address]
--- OUTSIDE RECORDS SUMMARY | 2022-03-02 17:13 | XMS_ITS | Encounter Summary ---
:1995 Author Organization [facility] Address [address] [place] [address]. [place] [address] Care Team Providers Name Role Phone Doctor, None Primary Care Provider Unavailable Encounter Details Date Type Department Care Team Description 09/07/2010 Office Visit-[facility] [address] [place] [address] [address] [place], [place] [address] [address] [address] [place] [address] [phone] Social History Tobacco Use Types Packs/Day Years Used Date Never Smoker Alcohol Use Standard Drinks/Week Comments No 0 (1 standard drink = 0.6 oz pure alcoho l) Sex Assigned at Date Recorded Not on file documented as of this encounter Progress Notes Nirali García - 09/07/2010 9:00 AM CST Coating Machine Helper: Nirali García Status: Final - Signature Encounter: 07 Sep 2010 Type: EYE Letter September 15, 2010 Jax Solomon MD [address], [address] [place] [address] RE: Sonia Allen MR#: [id number] : [address] Solomon: I had the pleasure of seeing Sonia Allen in Pediatric Ophthalmology Clinic at the [facility] [place] on September 07, 2010. Sonia is a 15-year-old girl who failed her Peds vision screening. Her parents believe she has good visual acuity. 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 She is on no medications, has no know drug allergies, and she has been in good health with no major medical problems. Review of systems is completed and is negative. On exam today, Sonia's visual acuity is 20/20-2 right eye and 20/20-2 left eye. She has no misalignment noted at distance and has a flick of exophoria at near. She has 50 seconds of arc on stereoacuity testing, which is excellent. She has full extraocular motility. Her near visual acuity is 20/20 in each eye. Pupils are equally round and reactive to light with no afferent pupillary defect. Slit lamp exam performed prior to dilation shows normal lids, lashes, sclera, conjunctiva, cornea, anterior chambers, and lenses. 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 The left eye also has a denver iris but has a light brown nevus sectorally covering from 3 o'clock clockwise to approximately 10:30 o'clock. Cycloplegic refraction is +1.00+1.00 x 085 with a visual acuity of 20/20-1 right eye and +1.50+0.75 x090 with a visual acuity of 20/20-1 left eye. Intraocular pressures were 16 in each eye. Dilated fundus exam showed normal optic nerves, macula, vessels, and periphery. Cup-to-disc ratio was 0.3-0.4. 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 She also has mild hyperopia and astigmatism that does not require correction with spectacles. It was my pleasure to participate in Sonia's care. If you have any questions regarding her visit, please feel free to contact me. Sincerely, Nirali García M.D. Hand Former Helper Department of Pediatric Ophthalmology and Adult Strabismus JA:larry Job Number: [id number] Electronically signed by:Nirali García M.D. Sep 18 2010 8:52AM WIRELINE OPERATOR LINE OPERATOR documented in this encounter Plan of Treatment Not on filedocumented as of this encounter Visit Diagnoses Not on filedocumented in this encounter Care Teams Content Designer Relationship Specialty Start Date End Date Doctor, MD Juan PCP - General 09/08/01 03/09/13 documented as of this encounter
--- OUTSIDE RECORDS SUMMARY | 2022-03-02 17:13 | XMS_ITS | Encounter Summary ---
:1995 Author Organization [place] Address [address] [place] [address] Care Team Providers Name Role Phone Doctor, Juan LEIJA Primary Care Provider Unavailable Reason for Visit Reason Comments otitis media-acute right Right OM Encounter Details Date Type Department Care Team Description 09/14/2003 Abstract [facility]gent Lizzie Melgar PA-C Care [facility] [address] [facility] [address] [address] [place] [address] [phone] Social History Tobacco Use Types Packs/Day Years Used Date Never Assessed Sex Assigned at Date Recorded Not on file documented as of this encounter Progress Notes 09/14/2003 11:59 PM SHEEP CLIPPER Zithromax 200/5ml 1 1/2 qd x 3 25ml Motrin, Increase fluids THIS INFORMATION HAS BEEN ABSTRACTED FRO M THE URGENT CARE CHART documented in this encounter Plan of Treatment Not on filedocumented as of this encounter Visit Diagnoses Not on filedocumented in this encounter Care Teams Paralegals Relationship Specialty Start Date End Date Doctor, MD Juan PCP - General 09/08/01 03/09/13 documented as of this encounter
--- OUTSIDE RECORDS SUMMARY | 2022-03-02 17:13 | XMS_ITS | Encounter Summary ---
:1995 Author Organization [facility] Address [address] [place] [address] Care Team Providers Name Role Phone Caterina Elkins MD Primary Care Provider [phone] Reason for Visit Reason Comments Imm/Inj 3rd HPV and Menactra Encounter Details Date Type Department Care Team Description 07/19/2013 Allied Health/Nurse [facility] Imm /Inj (3rd HPV and Visit Clinic [place] [facility]) [address] [place] [address] Social History Tobacco Use Types Packs/Day Years Used Date Never Smoker Alcohol Use Standard Drinks/Week Comments No 0 (1 standard drink = 0.6 oz pure alcoho l) Sex Assigned at Date Recorded Not on file documented as of this encounter Plan of Treatment Not on filedocumented as of this encounter Visit Diagnoses Diagnosis Need for other specified prophylactic va ccination against single bacterial disease - Primary Need for HPV vaccine Need for prophylactic vaccination and in oculation against other viral diseases documented in this encounter Care Teams Barrel Bung Remover And Dumper Relationship Specialty Start Date End Date Caterina Elkins MD PCP - General Pediatrics 03/10/13 [address] [place] [address] documented as of this encounter
--- OUTSIDE RECORDS SUMMARY | 2022-03-02 17:13 | XMS_ITS | Encounter Summary ---
:1995 Author Organization [facility] Address [address] [place] [address] Care Team Providers Name Role Phone Doctor, None Primary Care Provider Unavailable Reason for Visit Reason Comments Well Child Encounter Details Date Type Department Care Team Description 04/05/[address] [facility] Octavio Elkins [facility] Pierre MD Miriam EXAM (Primary Dx) [address] [place] [address] [place] [id number] (Wo rk) Social History Tobacco Use Types Packs/Day Years Used Date Never Smoker Alcohol Use Standard Drinks/Week Comments Not Asked 0 (1 standard drink = 0.6 oz pure alcoho l) Sex Assigned at Date Recorded Not on file documented as of this encounter Last Filed Vital Signs Vital Sign Reading Time Taken Comments Blood Pressure 96/54 04/05/2006 9:15 AM CDT Pulse - - Temperature 37.2 ??C (98.9 ??F) 04/05/2006 9:15 AM CDT Respiratory Rate - - Oxygen Saturation - - Inhaled Oxygen Concentration - - Weight 43.1 kg (95 lb) 04/05/2006 9:15 AM CDT Height 141.6 cm (4' 7.75) 04/05/2006 9:15 AM CDT Body Mass Index 21.49 04/05/2006 9:15 AM CDT Body Mass Index Percentile 94.49 % 04/05/2006 9:15 AM CD T Growth Chart: CDC (Girls, 2-20 Years) documented in this encounter Progress Notes Octavio Elkins C - 04/05/2006 8:47 AM CDT Sonia Allen is an 10 year old female here for a routine health maintenance visit, accompanied by her mother and sister. QUESTIONS/CONCERNS: Sonia regularly complains that she can't see and can't hear, mom would likeher vision and hearing tested. FAMILY/ SOCIAL HISTORY Child lives with: mother, brother, 2 sisters and maternal grandmother. Recent family changes/social stressors: none Family History: No changes since last physical Language(s) spoken at home: Malawian 3rd grade ENVIRONMENTAL RISK ASSESSMENT Is your child around anyone who smokes? NO Booster seat/ seat belt? YES Bike/ sport helmet? YES TB exposure? NO Pets in the home? YES 8 fish 2 dogs 2 cats bird & hamster Guns/firearms in the home? NO Water source: [employer] [facility] water CHICKEN POX HISTORY: Patient has had chicken pox DEVELOPMENTAL/Behavioral Screening form: Form not indicated at this visit. HEARING FREQUENCY: Right Ear: 500 Hz: RESPONSE- Yes on Level 30 db HL 1000 Hz: RESPONSE- Yes on Level 20 db HL 2000 Hz: RESPONSE- Yes on Level 10 db HL 4000 Hz: RESPONSE- Yes on Level 05 db HL Left Ear: 500 Hz: RESPONSE- Yes on Level 30 db HL 1000 Hz: RESPONSE- Yes on Level 20 db HL 2000 Hz: RESPONSE- Yes on Level 10 db HL 4000 Hz: RESPONSE- Yes on Level 05 db HL VISION: Right eye: 20/40 Left eye: 20/50 Right & Left eyes: 20/40 REQUIRED VITAL SIGNS COMPLETED: yes BP 96/54 Temp (Src) 98.9 (Oral) Ht 4' 7.75 (1.42m) Wt 95 lbs (43.1kg) 91.48% of growth percentile based on rmzsspz-kjr-nhb. 96.32% of growth percentile based on eiayff-ten-jln. 94.49% of growth percentile based on BMI-for-age. Staff signature: OCTAVIO ELKINS HEALTH HISTORY SINCE LAST VISIT No surgery, major illness or injury since last physical exam Immunization History Name Date(s) Administered ??? DTaP 1997, 1997, 1997, 06/09/2001, 03/25/2004 ??? HIB 1997, 1997, 1997 ??? Hepatitis B 1997, 1997, 03/20/1998 ??? IPV 1997, 1997, 06/09/2001, 03/25/2004 ??? MMR 06/09/2001, 03/25/2004 ??? Varicella Not Indicated - By Hx 03/26/2000 Allergies Allergen Reactions ??? No Known Allergies DAILY ACTIVITIES NUTRITION: good appetite, eats variety of foods, dairy/ calcium: 2% milk and 1% milk, meat, fruits and vegetables1% SLEEP: No concerns, sleeps well through night ELIMINATION: Normal bowel movements and Normal urination EXERCISE/ RECREATION: Age appropriate activities ACTIVITIES: none TV/ MEDIA: several hours per day EDUCATION Concerns: no School: Home-schooled Grade: 3 School performance / Academic skills: doing well in school and at grade level Behavior: no current behavioral concerns in school no current behavioral concerns with adults or other children MENTAL HEALTH Concerns: no Peer relationships: no concerns Family relationships: no concerns VISION: For details see above, abnormal, HEARING: For details see above, normal ROS [...] -F: Normal female external genitalia, Jelani stage 1. BREASTS: Jelani stage 1. No abnormalities. SPORTS EXAM: Shoulder: normal Elbow: normal Hand/Wrist: normal Back: normal Quad/Ham: normal Knee: normal Ankle/Feet: normal ANTICIPATORY GUIDANCE The following topics were discussed: SOCIAL/ FAMILY: Praise for positive activities Limit / supervise TV/ media Chores/ expectations Limits and consequences NUTRITION: Healthy snacks Family meals Calcium and iron sources Balanced diet HEALTH/ SAFETY: Regular dental care Booster seat/ Seat belts Bike/sport helmets ASSESSMENT 1. Well child with normal growth and development PLAN Immunizations: Reviewed, up to date See other orders in [facility] Referrals/Ongoing Specialty care: Yes, for eye exam, possibly glasses needed. Dental visit recommended: Yes and Continue care q 6 months RTC: 9 year RHM visit documented in this encounter Nursing Notes 04/05/2006 9:15 AM CDT >> SLIM CHAN 04/05/2006 9:42 am HEARING FREQUENCY: Right Ear: 500 Hz: RESPONSE- Yes on Level 30 db HL 1000 Hz: RESPONSE- Yes on Level 20 db HL 2000 Hz: RESPONSE- Yes on Level 10 db HL 4000 Hz: RESPONSE- Yes on Level 05 db HL Left Ear: 500 Hz: RESPONSE- Yes on Level 30 db HL 1000 Hz: RESPONSE- Yes on Level 20 db HL 2000 Hz: RESPONSE- Yes on Level 10 db HL 4000 Hz: RESPONSE- Yes on Level 05 db HL VISION: Right eye: 20/40 Left eye: 20/50 Right & Left eyes: 20/40 .Zena Chan LPN >> AMAYA ROSS 04/05/2006 8:34 am Sonia is an 10 year old female here for a routine health maintenance visit, accompanied by her mother and sister(s). There are concerns about vision & hearing, mom states pt always says she can't see or hear. Mom also states pt screams a lot. No changes in family history since last physical. Juana Diaz Prescreen: Not applicable. Lead Risk Questionaire: Not applicable Amaya Ross RN documented in this encounter Plan of Treatment Not on filedocumented as of this encounter Procedures Procedure Name Priority Date/Time Associated Diagnosis Comme nts ZZC VISION SCREENING Routine 04/05/2006 9:19 AM CDT Routine [facility] N/C Exam HC SCREENING TEST, Routine 04/05/2006 9:19 AM CDT [facility]ine [facility] PURE TONE, AIR ONLY Exam documented in this encounter Visit Diagnoses Diagnosis Routine infant or child health check - P rimary documented in this encounter Care Teams Educational Assistant Teacher Relationship Specialty Start Date End Date Doctor, Juan, PCP - General 09/08/01 03/09/13 documented as of this encounter
--- OUTSIDE RECORDS SUMMARY | 2022-03-02 17:13 | XMS_ITS | Encounter Summary ---
:1995 Author Organization [facility] Address [address] [place] [address]. [place] [address] Care Team Providers Name Role Phone Caterina Elkins MD Primary Care Provider [phone] Encounter Details Date Type Department Care Team Description 05/29/2020 Medical Correspondence [facility] Scan, [facility] Info Mgmt Non-Provider POST-AMADEO Srvcs DEPRESSION SCALE [address] [place] [address] [place] [address] WELL-CHILD VISITS [phone] Social History Tobacco Use Types Packs/Day Years [...] on filedocumented in this encounter Care Teams R Programmer Relationship Specialty Start Date End Date Caterina Elkins MD PCP - General Pediatrics 03/10/13 [address] [id number] documented as of this encounter
--- OUTSIDE RECORDS SUMMARY | 2022-03-02 17:13 | XMS_ITS | Encounter Summary ---
:1995 Author Organization [facility] Address [address] [place] [address]. [place] [address] Care Team Providers Name Role Phone Doctor, None MD Primary Care Provider Unavailable Reason for Referral Referral not Required - Closed Specialty Diagnoses / Procedures Referred By Contact Refer red To Contact Diagnoses Routine infant or child health check Jax Solomon MD [facility] [address] [facility] [address] [place] [address] [address] [place] [address] Phone: [phone] Fax: Referral ID Status Reason Start Date Expiration Date Visits Requ ested Visits Authorized [id number] Closed 07/11/2010 07/11/2010 1 1 ESSOR OF ENVIRONMENTAL STUDIES Reason for Visit Reason Comments Physical Encounter Details Date Type Department Care Team Description 07/11[facility] H[facility]ctor Bronson MD child health check [address] (Primary Dx) [place] [address] Social History Tobacco Use Types Packs/Day Years Used Date Never Smoker Alcohol Use Standard Drinks/Week Comments No 0 (1 standard drink = 0.6 oz pure alcoho l) Sex Assigned at Date Recorded Not on file documented as of this encounter Last Filed Vital Signs Vital Sign Reading Time Taken Comments Blood Pressure 108/62 07/11/2010 9:13 AM PROFESSOR OF ENVIRONMENTAL STUDIES Pulse - - Temperature - - Respiratory Rate - - Oxygen Saturation - - Inhaled Oxygen Concentration - - Weight 75.3 kg (166 lb) 07/11/2010 9:13 AM PROFESSOR OF ENVIRONMENTAL STUDIES Height 172.1 cm (5' 7.75) 07/11/2010 9:13 AM PROFESSOR OF ENVIRONMENTAL STUDIES Body Mass Index 25.43 07/11/2010 9:13 AM PROFESSOR OF ENVIRONMENTAL STUDIES Body Mass Index Percentile 93.30 % 07/11/2010 9:13 AM CS T Growth Chart: CDC (Girls, 2-20 Years) documented in this encounter Progress Notes Jax Solomon - 07/11/2010 9:15 AM CST Sonia Allen is an 15 year old female here for a routine health maintenance visit, accompanied by her mother and sister. QUESTIONS/CONCERNS: None FAMILY/ SOCIAL HISTORY Child lives with: mother, brother and 2 sisters Recent family changes/social stressors: none noted Family History: No changes since last physical Language(s) spoken at home: Mosotho ENVIRONMENTAL RISK ASSESSMENT Is your child around anyone who smokes? NO Seat belt? YES Bike/sport helmet? YES TB exposure? NO Pets in the home? NO Guns/firearms in the home? NO Water source: [employer] CHICKEN POX HISTORY: Patient has had chicken pox DEVELOPMENTAL/ Behavioral Screening form: Form not indicated at this visit. VISION see nursing notes HEARING see nursing notes REQUIRED VITAL SIGNS COMPLETED: yes BP 108/62 Ht 5' 7.75 (1.721 m) Wt 166 lb (75.297 kg) LMP 07/03/2010 98.02% of growth percentile based on btxuumh-xok-aal. 97.48% of growth percentile based on jmlesr-zsl-szv. 93.28% of growth percentile based on BMI-for-age. Will you need a sports physical in the next year? No sports physical needed. Staff signature: Estevan Brambila MA HEALTH HISTORY SINCE LAST VISIT No surgery, major illness or injury since last physical exam Cardiac risk assessment: none Immunization History Administered Date(s) Administered ? ? DTAP (<7y) 1997, 1997, 1997, 06/09/2001, 03/25/2004 ??? HIB 1997, 1997, 1997 ??? Hepatitis B 1997, 1997, 03/20/1998 ??? IPV 1997, 1997, 06/09/2001, 03/25/2004 ??? MMR 06/09/2001, 03/25/2004 ??? Varicella Not Indicated - By Hx 03/26/2000 ALLERGIES Allergies Allergen Reactions ??? No Known Allergies DAILY ACTIVITIES NUTRITION: good appetite, eats variety of foods SLEEP: No concerns, sleeps well through night ELIMINATION: Normal bowel movements and Normal urination EXERCISE/ RECREATION: Organized / Team sports: softball TV/ Media: < 2 hours/ day EDUCATION / EMPLOYMENT Concerns: no MENTAL HEALTH Concerns: no MENSTRUAL HISTORY Still irregular SEXUALITY Dating: no Sexual activity: no SUBSTANCE ABUSE Smoking: no Alcohol: no Drugs: no VISION: For details see above, abnormal, HEARING: [...] -F: Normal female external genitalia, Jelani stage 5. BREASTS: Jelani stage 5. No abnormalities. ANTICIPATORY GUIDANCE The following topics were discussed: SOCIAL/ FAMILY: Peer pressure Increased responsibility Parent/ teen communication TV/ media School/ homework NUTRITION: Healthy food choices HEALTH / SAFETY: Adequate sleep/ exercise Dental care Drugs, ETOH, smoking Seat belts Swimming/ water safety Contact sports Bike/ sport helmets SEXUALITY: Dating/ relationships Encourage abstinence ASSESSMENT 1. Well teen with normal growth and development PLAN Immunizations: See orders in [facility]. Counseling provided regarding the benefits and risks related to the vaccines ordered today. I reviewed the signs and symptoms of adverse effects and when to seek medical care if they should arise. See other orders in [facility] Referrals/Ongoing Specialty care: Yes, see orders in [facility] Dental visit recommended: Yes and Continue care every 6 months RTC: 1 year RHM visit ESSOR OF ENVIRONMENTAL STUDIES documented in this encounter Nursing Notes 07/11/2010 9:00 AM CST >> ALAYNA BRAMBILA Sat Jul 11, 2010 10:06 AM VISION: Right eye: 20/30 Left eye: 20/30 Right & Left eyes: 20/40 Audiology Screen: Right ear 500Hz--25dB 1000Hz--15dB 2000Hz--10dB 4000Hz--20dB Left ear 500Hz--20dB 1000Hz--5dB 2000Hz--5dB 4000Hz--10dB >> ALAYNA BRAMBILA Sat Jul 11, 2010 9:16 AM Patient presents with: Physical Initial BP 108/62 Ht 5' 7.75 (1.721 m) Wt 166 lb (75.297 kg) LMP 07/03/2010 Estimated Body mass index is 25.43 kg/(m^2) as calculated from the following: Height as of this encounter: 5' 7.75(1.721 m). Weight as of this encounter: 166 lb(75.297 kg).. BP completed using cuff size: regular documented in this encounter Plan of Treatment Not on filedocumented as of this encounter Procedures Procedure Name Priority Date/Time Associated Diagnosis Comme nts PEDIATRIC OPHTHALMOLOGY Routine 09/15/2010 Routine or WINE MANAGER REFERRAL child health check HC SCREENING TEST, PURE Routine 07/11/2010 9:40 AM Routine inf ant or TONE, AIR ONLY PROFESSOR OF ENVIRONMENTAL STUDIES child health check documented in this encounter Results OPHTHALMOLOGY PEDS REFERRAL (09/15/2010) Narrative This result has an attachment that is no t available. Jax Solomon MD REFERRAL documented in this encounter Visit Diagnoses Diagnosis Routine or child health check - P rimary documented in this encounter Care Teams Brake Repairer [employer] Relationship Specialty Start Date End Date Doctor, None, PCP - General 09/08/01 03/09/13 documented as of this encounter
--- OUTSIDE RECORDS SUMMARY | 2022-03-02 17:13 | XMS_ITS | Encounter Summary ---
:1995 Author Organization [place] Address [address] [place] [address] Care Team Providers Name Role Phone Caterina Elkins MD Primary Care Provider [phone] Encounter Details Date Type Department Care Team Description 03/19/2014 Orders Only [facility] Vit evans D deficiency (Primary Dx); [facility] Routine or child heal th check; [address] Dietary surveillance and cou nseling; [place] [address] Allergic state, initial enco unter [phone] Social History Tobacco Use Types Packs/Day Years Used Date Never Smoker Alcohol Use Standard Drinks/Week Comments No 0 (1 standard drink = 0.6 oz pure alcoho l) Sex Assigned at Date Recorded Not on file documented as of this encounter Miscellaneous Notes Addendum Note - Zohaib Bhandari MD - 04/22/2014 8:42 PM CDT Addended by: ZOHAIB BHANDARI on: 04/22/2014 08:42 PM Modules accepted: Orders documented in this encounter Plan of Treatment Not on filedocumented as of this encounter Procedures Procedure Name Priority Date/Time Associated Diagnosis Comme nts HIV ANTIGEN ANTIBODY Routine 03/19/2014 9:35 Routine Infant Or Results for this COMBO AM CDT Child Health Check procedure are in the results section. CBC WITH PLATELETS & Routine 03/19/2014 9:35 Routine Or Results for this DIFFERENTIAL AM CDT Child Health Check procedure are in the results section. VITAMIN D DEFICIENCY Routine 03/19/2014 9:35 Dietary Surveilla nce Results for this SCREENING AM CDT And Counseling procedure are in the results section. TSH WITH FREE T4 Routine 03/19/2014 9:35 Routine Infant Or Res ults for this REFLEX AM CDT Child Health Check procedure are in the results section. LIPID REFLEX TO DIRECT Routine 03/19/2014 9:35 Routine Infant Or Results for this LDL PANEL AM CDT Child Health Check procedure are in the results section. COMPREHENSIVE Routine 03/19/2014 9:35 Routine Or Result s for this METABOLIC PANEL AM CDT Child Health Check proced ure are in the results section. ALLERGY PEDIATRIC Routine 03/19/2014 9:35 Allergic state, Resu lts for this MARCH PROFILE IGE AM CDT initial encounter proce bonitae are in the results section. documented in this encounter Results (ABNORMAL) Allergy pediatric March profile IgE (03/19/2014 9:35 AM CDT) Component Value Ref Test Analysis Performed At [facility] gist Range Method Time Signature IGE 1,723 (H) 0 - 123 [facility] Allergen Cat <0.35 <0.35 [facility] Dander Interp: Class 0 - Negative, Consider nonallergic causes [facility] Allergen Dog <0.35 <0.35 [facility] Dander Interp: Class 0 - Negative, Consider nonallergic causes [facility] Allergen <0.35 <0.35 [facility] Fish(Cod) Interp: Class 0 - Negative, Consider nonallergic causes [facility] Allergen Egg <0.35 <0.35 [facility] White Interp: Class 0 - Negative, Consider nonallergic causes [facility] Allergen Milk <0.35 <0.35 [facility] Interp: Class 0 - Negative, Consider nonallergic causes [facility] Allergen Peanut <0.35 <0.35 [facility] Interp: Class 0 - Negative, Consider nonallergic causes [facility] Allergen Soybean <0.35 <0.35 [facility] IgE Interp: Class 0 - Negative, Consider nonallergic causes [facility] Allergen Wheat <0.35 <0.35 [facility] Interp: Class 0 - Negative, Consider nonallergic causes [facility] Allergen <0.35 <0.35 [facility] Cockroach Interp: Class 0 - Negative, Consider nonallergic causes [facility] Allergen D <0.35 <0.35 [facility] farinae Interp: Class 0 - Negative, Consider nonallergic causes [facility] Allergen A <0.35 <0.35 [facility] alternata Interp: Class 0 - Negative, Consider nonallergic causes [facility] Allergen, D <0.35 <0.35 [facility] Pteronyssinus Interp: Class 0 - Negative, Consider nonallergic causes [facility] Specimen Anatomical Collection Method Collection Time Receive d Time (Source) Location / / Volume Laterality Blood specimen 03/19/2014 9:35 AM 014 9:40 (specimen) CDT AM CDT Zohaib Bhandari MD LAB - BLOOD ORDERABLES Performing Organization Address [facility] Phon e Number [address] LABS (ABNORMAL) Vitamin D Deficiency (03/19/2014 9:35 AM CDT) athologist Signature Vitamin D 19 (L) 30 - 75 [facility] Deficiency ug/L [facility] LABS Comment: Season, race, dietary intake, and treatm ent affect the concentration of 06-qcktzvp-Aqebomp D. Values may decrea se during winter months and increase during summer months. Values less than 30 ug/L may indicate Vitamin D deficiency. Vitamin D determiniation is routinely p erformed by an immunoassay specific for 25 hydroxyvitamin D3. ??If an individua l is on vitamin D2 (ergocalciferol) supplementation, please specify 25 [place] v itamin D2 and D3 level determination by LCMSMS test VITD23. ??For questions, pl ease contact the laboratory at [phone]. Specimen Anatomical Collection Method Collection Time Receive d Time (Source) Location / / Volume Laterality Blood specimen 03/19/2014 9:35 AM 014 9:40 (specimen) CDT AM CDT Zohaib Bhandari MD LAB - BLOOD ORDERABLES Performing Organization Address [facility] Phon e Number [address] LABS Comprehensive metabolic panel (03/19/2014 9:35 AM CDT) athologist Signature Sodium 138 133 - 144 [facility] mmol/L [place] Potassium 3.6 3.4 - 5.3 [facility] mmol/L [place] Chloride 105 96 - 110 [facility] mmol/L [place] Carbon Dioxide 25 20 - 32 [facility] S mmol/L [place] Anion Gap 8 6 - 17 [facility] mmol/L [place] Glucose 88 70 - 99 [facility] mg/dL [place] Comment: Effective 02/20/2014, the reference range for this assay has changed to reflect new instrumentation/methodology. Urea Nitrogen 8 7 - 19 mg/dL [facility] [place] Comment: Effective 02/20/2014, the reference range for this assay has changed to reflect new instrumentation/methodology. Creatinine 0.67 0.50 - 1.00 [facility] mg/dL [place] GFR Estimate >90 >60 mL/min/1.7m2 [place] Non GFR Calc [place] GFR Estimate If Black >90 >60 mL/min/1.7m2 [facility] GFR Calc [place] Calcium 9.4 9.1 - 10.3 mg/dL [facility] [place] Comment: Effective 02/20/2014, the reference range for this assay has changed to reflect new instrumentation/methodology. Bilirubin Total 0.7 0.2 - 1.3 mg/dL [facility] Albumin 4.2 3.9 - 5.1 g/dL [facility] S [place] Protein Total 7.5 6.8 - 8.8 g/dL [facility] [place] Alkaline Phosphatase 71 40 - 150 U/L [facility] ALT 11 0 - 50 U/L [facility] AST 7 0 - 35 U/L [facility] Specimen Anatomical Collection Method Collection Time Receive d Time (Source) Location / / Volume Laterality Blood specimen 03/19/2014 9:35 AM 014 9:40 (specimen) CDT AM CDT Zohaib Bhandari MD LAB - BLOOD ORDERABLES Performing Organization Address City/State/ZIP Code Phon e Number [facility] [place] [address] [place] [address] [facility] [address] [place], [place] [address] TSH with free T4 reflex (03/19/2014 9:35 AM CDT) athologist Signature TSH 2.11 0.40 - 4.00 [facility] mU/L [place] Comment: Effective 02/20/2014, the reference range for this assay has changed to reflect new instrumentation/methodology. Specimen Anatomical Collection Method Collection Time Receive d Time (Source) Location / / Volume Laterality Blood specimen 03/19/2014 9:35 AM 014 9:40 (specimen) CDT AM CDT Zohaib Bhandari MD LAB - BLOOD ORDERABLES Performing Organization Address City/State/ZIP Code Phon e Number [facility] [address] [place] [address] [facility] [address] [place], [place] [address] HIV Antigen Antibody Combo (03/19/2014 9:35 AM CDT) [facility] gist Method Time Signature HIV Antigen Nonreactive [facility] Antibody HIV-1 p24 Ag & HIV-1/HIV-2 Ab Not Detected [facility] LABS Specimen Anatomical Collection Method Collection Time Receive d Time (Source) Location / / Volume Laterality Blood specimen 03/19/2014 9:35 AM 014 9:40 (specimen) CDT AM CDT Zohaib Bhandari MD LAB - BLOOD ORDERABLES Performing Organization Address City/State/ZIP Code Phon e Number [facility] [address] [place] [address] [facility] LABS Lipid panel reflex to direct LDL (03/19/2014 9:35 AM CDT) athologist Signature Cholesterol 129 <170 mg/dL [facility] Comment: LDL Cholesterol is the primary guide to therapy. The NCEP recommends further evaluation of: patients with cholesterol greater than 200 mg/dL if additional risk facto rs are present, cholesterol greater than 240 mg/dL, triglycerides greater than 1 50 mg/dL, or HDL less than 40 mg/dL. Triglycerides 50 0 - 150 mg/dL [facility] [place] HDL Cholesterol 66 >45 mg/dL [facility] [place] LDL Cholesterol Calculated 53 0 - 129 mg/dL [facility] Comment: LDL Cholesterol is the primary guide to therapy: LDL-cholesterol goal in high risk patients is <100 mg/dL and in very high risk patients is <70 mg/dL. VLDL-Cholesterol 10 0 - 30 mg/dL [place] [facility] [place] Cholesterol/HDL Ratio 2.0 0.0 - 5.0 [facility] Specimen Anatomical Collection Method Collection Time Receive d Time (Source) Location / / Volume Laterality Blood specimen 03/19/2014 9:35 AM 014 9:40 (specimen) CDT AM CDT Zohaib Bhandari MD LAB - BLOOD ORDERABLES Performing Organization Address City/State/ZIP Code Phon e Number [facility] [place] [address] [place] [address] [facility] [address], [place] [address] CBC with platelets differential (03/19/2014 9:35 AM CDT) [facility] gist Method Time Signature WBC 5.2 4.0 - [place] 11.0 [facility] 10e9/L [place] RBC Count 3.92 3.7 - 5.3 [place] 10e12/L [facility] Hemoglobin 11.8 11.7 - [place] 15.7 g/dL [facility] Hematocrit 35.7 35.0 - [place] 47.0 % [facility] MCV 91 77 - 100 [facility] MCH 30.1 26.5 - [place] 33.0 pg [facility] MCHC 33.1 31.5 - [place] 36.5 g/dL [facility] RDW 11.6 10.0 - [place] 15.0 % [facility] Platelet Count 270 150 - 450 [place] 10e9/L [facility] Diff Method Automated [facility] % Neutrophils 47.1 % [facility] % Lymphocytes 41.6 % [facility] % Monocytes 7.0 % [facility] % Eosinophils 3.7 % [facility] % Basophils 0.6 % [facility] Absolute 2.4 1.3 - 7.0 [place] Neutrophil 10e9/L [facility] Absolute 2.2 1.0 - 5.8 [place] Lymphocytes 10e9/L [facility] Absolute 0.4 0.0 - 1.3 [place] Monocytes 10e9/L [facility] Absolute 0.2 0.0 - 0.7 [place] Eosinophils 10e9/L [facility] Absolute 0.0 0.0 - 0.2 [place] Basophils 10e9/L [facility] Specimen Anatomical Collection Method Collection Time Receive d Time (Source) Location / / Volume Laterality Blood specimen 03/19/2014 9:35 AM 014 9:40 (specimen) CDT AM CDT Zohaib Bhandari MD LAB - BLOOD ORDERABLES Performing Organization Address City/State/ZIP Code Phon e Number [facility] [address] [place], [place] [address] [address] documented in this encounter Visit Diagnoses Diagnosis Vitamin D deficiency - Primary Unspecified vitamin D deficiency Dietary surveillance and counseling Allergic state, initial encounter documented in this encounter Care Teams Obstetrics Teacher Relationship Specialty Start Date End Date Caterina Elkins MD PCP - General Pediatrics 03/10/13 [address] [place] [address] documented as of this encounter
--- OUTSIDE RECORDS SUMMARY | 2022-03-02 17:13 | XMS_ITS | Encounter Summary ---
:1995 Author Organization [place] Address [facility] [place] [address] Care Team Providers Name Role Phone Caterina Elkins MD Primary Care Provider [phone] Encounter Details Date Type Department Care Team Description 10/02/2020 Medical Correspondence [facility] Scan, [facility] Info Mgmt Non-Provider POST- Srvcs DEPRESSION SCALE [address] [place] [address] [place] [address] WELL-CHILD VISITS [phone] Social History Tobacco Use Types Packs/Day Years [...] on filedocumented in this encounter Care Teams Editorial Intern Relationship Specialty Start Date End Date Caterina Elkins MD PCP - General Pediatrics 03/10/13 [address] [address] documented as of this encounter
--- OUTSIDE RECORDS SUMMARY | 2022-03-02 17:13 | XMS_ITS | Encounter Summary ---
:1995 Author Organization [place] Address [address] [place] [address] Care Team Providers Name Role Phone Doctor, None Primary Care Provider Unavailable Reason for Visit Reason Comments Cough Encounter Details Date Type Department Care Team Description 07/14/2004 Office Visit [facility] Surekha Garrido ACUTE SINUSITIS [facility] [place] MD Jamia (Primary Dx) [address] [facility] [place], [place] [address] [address] [place], [place] [phone] (Wo rk) Social History Tobacco Use Types Packs/Day Years Used Date Never Assessed Sex Assigned at Date Recorded Not on file documented as of this encounter Last Filed Vital Signs Vital Sign Reading Time Taken Comments Blood Pressure - - Pulse - - Temperature 36.1 ??C (97 ??F) 07/14/2004 11:13 AM SELF CONTAINED BEHAVIOR UNIT TEACHER Respiratory Rate - - Oxygen Saturation - - Inhaled Oxygen Concentration - - Weight 29.5 kg (65 lb) 07/14/2004 11:13 AM SELF CONTAINED BEHAVIOR UNIT TEACHER Height - - Body Mass Index - - documented in this encounter Progress Notes 07/14/2004 11:00 AM SELF CONTAINED BEHAVIOR UNIT TEACHER Sonia Allen is a 9 year old female here with sister(s) and maternal grandmother with concernsregarding cough for two weeks. Started with nasal congestion, sore throat, headache and cough. Coughhas continued while other sx have resolved. Cough both day and night. No fever. No PMH of wheezing or asthma. Ill family members with uri's. OBJECTIVE: Temp (Src) 97 (Oral) Wt 65 lbs (29.5kg) General appearance: healthy, alert and no distress Eyes: normal Ears: R TM - normal: no effusions, no erythema, and normal landmarks, L TM - normal: no effusions, no erythema, and normal landmarks Nose: mucosal erythema and mucosal edema Oropharynx: moist mucosa, no erythema or exudates Neck: normal, supple and no adenopathy Lungs: clear to auscultation bilaterally and no wheezes, crackles, rhonchi or stridor Heart: regular rate and rhythm and no murmurs, clicks, or gallops ASSESSMENT: Sinusitis PLAN: Current prescriptions: AMOXICILLIN 400 MG OR CHEW Take 2 tabs po bid x 10 days follow up if worsening sx or concerns. documented in this encounter Nursing Notes 07/14/2004 11:00 AM CST >> TAMIKA MURRELL 07/14/2004 11:14 am Pt here with gramma for cough x 2 weeks. Afebrile. Tamika Murrell MA documented in this encounter Plan of Treatment Not on filedocumented as of this encounter Visit Diagnoses Diagnosis Acute sinusitis, unspecified - Primary documented in this encounter Care Teams Hat Block Bench Hand Relationship Specialty Start Date End Date Doctor, Juan, PCP - General 09/08/01 03/09/13 documented as of this encounter
--- OUTSIDE RECORDS SUMMARY | 2022-03-02 17:13 | XMS_ITS | Encounter Summary ---
:1995 Author Organization [place] Address [address] [place] [address] Care Team Providers Name Role Phone Doctor, Juan LEIJA Primary Care Provider Unavailable Reason for Visit Reason Comments immun. dates Encounter Details Date Type Department Care Team Description 04/11/2003 Telephone [facility] Yaakov balderrama, Surekha Blandon MD [facility] [address] CLINIC AND [place], [place] [phone] [address] [facility] [phone] [place] [address] (Wo rk) Social History Tobacco Use Types Packs/Day Years Used Date Never Assessed Sex Assigned at Date Recorded Not on file documented as of this encounter Miscellaneous Notes Telephone Encounter - 04/11/2003 11:59 PM CDT >> AMAYA ROSS Erika Apr 11, 2003 3:25 PM Paper chart reviewed, we only have record of kinder shots. Call to mom at work, she is not avail. Left message on v/m at home re above info. Amaya Ross RN >> VALE James Apr 11, 2003 1:51 PM >> CALL RECEIVED. Contact: kathy bedolla [phone] please check paper cht for transfered immun. dates. mom needs all dates. [facility] has kinder shots onlyplease call mom when done. cht requested. Vale Zamora LPN documented in this encounter Plan of Treatment Not on filedocumented as of this encounter Visit Diagnoses Not on filedocumented in this encounter Care Teams Elevator Runner Relationship Specialty Start Date End Date Doctor, Juan, PCP - General 09/08/01 03/09/13 documented as of this encounter
--- OUTSIDE RECORDS SUMMARY | 2022-03-02 17:13 | XMS_ITS | Encounter Summary ---
:1995 Author Organization [place] Address [address] [place] [address]. [place] [address] Care Team Providers Name Role Phone Caterina Elkins MD Primary Care Provider [phone] Encounter Details Date Type Department Care Team Description 05/05/2020 Medical Correspondence [facility] Scan, [facility] Info Mgmt Non-Provider POST-AMADEO Srvcs DEPRESSION SCALE [address] [place] [address] [place] [address] WELL-CHILD VISITS [phone] Social History Tobacco Use Types Packs/Day Years [...] on filedocumented in this encounter Care Teams Passenger Rate Clerk Relationship Specialty Start Date End Date Caterina Elkins MD PCP - General Pediatrics 03/10/13 [address] [address] documented as of this encounter
--- OUTSIDE RECORDS SUMMARY | 2022-03-02 17:14 | XMS_ITS | Encounter Summary ---
:1995 Author Organization [place] Address [address] [place] [address] Care Team Providers Name Role Phone DoctorJuan MD Primary Care Provider Unavailable Reason for Visit Reason Comments Derm Problem Encounter Details Date Type Department Care Team Description 08/06/2002 Office Visit [facility] Janey SKIN DISOR DERS [facility] MD [place] (Primary Dx) [place] [address] [place] [phone] Social History Tobacco Use Types Packs/Day Years Used Date Never Assessed Sex Assigned at Date Recorded Not on file documented as of this encounter Last Filed Vital Signs Vital Sign Reading Time Taken Comments Blood Pressure - - Pulse - - Temperature 36.6 ??C (97.9 ??F) 08/06/2002 3:00 PM SIGN ERECTOR AND REPAIRER Respiratory Rate - - Oxygen Saturation - - Inhaled Oxygen Concentration - - Weight 22.7 kg (50 lb) 08/06/2002 3:00 PM SIGN ERECTOR AND REPAIRER Height - - Body Mass Index - - documented in this encounter Nursing Notes 08/06/2002 3:00 PM CST >> COURT ROBLES 08/06/2002 2:41 pm Rash on arms, back et leg x [address] Robles RN documented in this encounter Plan of Treatment Not on filedocumented as of this encounter Visit Diagnoses Diagnosis Other specified disorder of skin - Prima ry documented in this encounter Care Teams Forest Fire Prevention Manager Relationship Specialty Start Date End Date Juan Dan MD PCP - General 09/08/01 03/09/13 documented as of this encounter
== END 2022-02-09 08:36 | disposition home or self-care (01) ==
LOC: FRMREF 08:36
PROVIDERS: PCP Physician Assistant Medical; Visit Provider Advanced Practice Midwife
DX: Z34.93 Encounter for supervision of normal pregnancy, unspecified, third trimester (principal)
CPT/HCPCS: 82951; 82952

== ENCOUNTER 2022-03-04 07:07 | Outpatient (CLI) | payer OTHER, SELFPAY ==
--- OUTSIDE RECORDS SUMMARY | 2022-03-04 07:10 | XMS_ITS | Encounter Summary ---
:1995 Author Organization [place] Address [address] [place] [address]. [place] [address] Care Team Providers Name Role Phone Doctor, None Primary Care Provider Unavailable Encounter Details Date Type Department Care Team Description 09/07/2010 Office Visit-[facility] - MD Pastor Sorensenselect [facility] [address] [place] [address] [address] [place], [place] 9[facility] [address] [address] [place] [address] [phone] Social History Tobacco Use Types Packs/Day Years Used Date Never Smoker Alcohol Use Standard Drinks/Week Comments No 0 (1 standard drink = 0.6 oz pure alcoho l) Sex Assigned at Date Recorded Not on file documented as of this encounter Progress Notes Nirali García - 09/07/2010 9:00 AM CST Window Display Designer: Nirali García Status: Final - Signature Encounter: 07 Sep 2010 Type: EYE Letter September 15, 2010 Jax Solomon MD [address], [address] [place] [address] RE: Sonia Allen MR#: [id number] : [address] Solomon: I had the pleasure of seeing Sonia Allen in Pediatric Ophthalmology Clinic at [facility] [place] on September 07, 2010. Sonia is a [...] to contact me. Sincerely, Nirali García M.D. [facility] Department of Pediatric Ophthalmology and Adult Strabismus JA:larry Job Number: [id number] Electronically signed by:Nirali García M.D. Sep 18 2010 8:52AM HOME THERAPY CLINICIAN THERAPY CLINICIAN documented in this encounter Plan of Treatment Not on filedocumented as of this encounter Visit Diagnoses Not on filedocumented in this encounter Care Teams Issue Clerk Relationship Specialty Start Date End Date Doctor, MD Juan PCP - General 09/08/01 03/09/13 documented as of this encounter
--- OUTSIDE RECORDS SUMMARY | 2022-03-04 07:10 | XMS_ITS | Encounter Summary ---
:1995 Author Organization [place] Address [address] [place] [address]. [place] [address] Care Team Providers Name Role Phone Caterina Elkins MD Primary Care Provider [phone] Encounter Details Date Type Department Care Team Description 05/29/2020 Medical Correspondence [facility] Scan, [facility] Info Mgmt Non-Provider POST-AMADEO Srvcs DEPRESSION SCALE [address] [place] [address] [place] [address] WELL-CHILD VISITS [phone] Social History Tobacco Use Types Packs/Day Years [...] on filedocumented in this encounter Care Teams Ict Support Technicians Relationship Specialty Start Date End Date Caterina Elkins MD PCP - General Pediatrics 03/10/13 [address] [address] documented as of this encounter
--- OUTSIDE RECORDS SUMMARY | 2022-03-04 07:10 | XMS_ITS | Encounter Summary ---
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
--- OUTSIDE RECORDS SUMMARY | 2022-03-04 07:10 | XMS_ITS | Encounter Summary ---
:1997 Author Organization [place] Address [facility]iatric [facility] [place] [address] Care Team Providers Name Role Phone Caterina Elkins MD Primary Care Provider [phone] Encounter Details Date Type Department Care Team Description 10/02/2020 Medical Correspondence [facility] Scan, [facility] Info Mgmt Non-Provider POST- Srvcs DEPRESSION SCALE [address] [place] [address] [place] [address] WELL-CHILD VISITS [phone] Social History Tobacco Use Types Packs/Day Years [...] on filedocumented in this encounter Care Teams Funeral Planner Relationship Specialty Start Date End Date Caterina Elkins MD PCP - General Pediatrics 03/10/13 [address] [address] documented as of this encounter
--- OUTSIDE RECORDS SUMMARY | 2022-03-04 07:10 | XMS_ITS | Encounter Summary ---
:1997 Author Organization [place] Address [address] [place] [address] Care Team Providers Name Role Phone Doctor, None Primary Care Provider Unavailable Caterina Elkins MD Primary Care Provider [phone] Reason for Visit Reason Comments Well Child Encounter Details Date Type Department Care Team Description 02/22/2013 Office Visit [facility] Caterina Elkins infant or child health check (Primary Dx); Clinic Héctor Pineda MD Seasonal allergic rhinitis [address] [place] [address] [place] [address] [place] [address] [phone] (Wo rk) Social History Tobacco Use Types [...] Weight: 95.81%ile based on CDC 2-20 Years mnazvg-ypj-jmw data. Length: 97.58%ile based on CDC 2-20 Years niaxfai-mxl-xbc data. BMI: 89.9%ile based on CDC 2-20 [...] whole grains every day. Less healthy foods--like tajik fries, candy, and chips--should be eaten rarely. [...] your teen is old enough for a driver guard???s license, encourage safe driving. Teach your teen [...] this visit. Based on recommendations from the [place] [employer] of Pediatric[employer], at this visityour child [...] away. Next checkup at: PARENT NOTES: ?? [phone] [facility], [address] [place] [address], [place] [address]. All rights reserved. This information is not [...] since last physical Language(s) spoken at home: Malay MNVFC does apply for the following reason: [facility] Care Program (MHCP) enrollee: [place] [facility] ([place]), [facility], or a Prepaid Medical Assistance Program (PMAP) [...] 176 lb (79.833 kg) BMI 25.99 kg/m2 [facility] 02/13/2013 97.58%ile based on CDC 2-20 Years buwogel-idt-sgn data. 95.81%ile based on CDC 2-20 Years ohytfq-vkb-etq data. 89.9%ile based on CDC 2-20 Years [...] activities EDUCATION / EMPLOYMENT Concerns: no School: [employer] Grade:9th MENTAL HEALTH Concerns: no MENSTRUAL [...] unspecified documented in this encounter Care Teams Research Methods Instructor Relationship Specialty Start Date End Date Doctor, Juan, PCP - General 09/08/01 03/09/13 Caterina Elkins MD PCP - General Pediatrics 03/10/13 [address] [address] documented as of this encounter
--- OUTSIDE RECORDS SUMMARY | 2022-03-04 07:10 | XMS_ITS | Encounter Summary ---
:1997 Author Organization [place] Address [address] [place] [address] Care Team Providers Name Role Phone Caterina Elkins MD Primary Care Provider [phone] Reason for Visit Reason Onset Date Comments Orders 03/13/2014 LAB ORDERS Encounter Details Date Type Department Care Team Description 03/13/[address] [facility] Karyna Bhandari Order s (LAB ORDERS) Clinic [place] [facility] [address] [place], [place] [address] [phone] Social History Tobacco Use Types Packs/Day Years Used Date Never Smoker Alcohol Use Standard Drinks/Week Comments No 0 (1 standard drink = 0.6 oz pure alcoho l) Sex Assigned at Date Recorded Not on file documented as of this encounter Plan of Treatment Not on filedocumented as of this encounter Visit Diagnoses Not on filedocumented in this encounter Care Teams Literacy Coordinator Relationship Specialty Start Date End Date Caterina Elkins MD PCP - General Pediatrics 03/10/13 [address] [place] [address] documented as of this encounter
--- OUTSIDE RECORDS SUMMARY | 2022-03-04 07:10 | XMS_ITS | Encounter Summary ---
:1997 Author Organization [place] Address [address] [place] [address] Care Team Providers Name Role Phone Caterina Elkins MD Primary Care Provider [phone] Reason for Visit Reason Comments Well Child 18 year px. Encounter Details Date Type Department Care Team Description 03/13/2014 Office Visit [facility] Karyna Bhandari or child health check (Primary Dx); Clinic [place] MD Linda Allergic state, initial encounter; [address] [place] [address] Dietary surve illance and counseling [facility] [address] [place] [address] [phone] Social History Tobacco Use Types Packs/Day Years [...] this encounter Patient Instructions Patient InstructionsFaby Celeste, WATER ATTENDANT - 03/13/2014 9:35 AM CDT Preventive Care at the 15 - 18 Year Visit Growth Percentiles & Measurements Weight: 177 lbs 0 oz / 80.29 kg / 95%ile based on [facility] 2-20 Years iypbbb-dgm-jqk data using vitals from 03/13/2014. Length: 5' 9 / 175.3 cm 97%ile based on [facility] 2-20 Years zbvhjha-zjq-skj data using vitals from 03/13/2014. BMI: Body mass index is 26.13 kg/(m^2). 89%ile based on [facility] 2-20 Years BMI-for-age data using vitalsfrom 03/13/2014. [...] Never get in a car if the rail car driver has been drinking or using drugs. [...] and 2 sisters Language(s) spoken at home: Bruneian Recent family changes/social stressors: none noted HEALTH [...] Water source: city water SPORTS QUESTIONNAIRE: School: [employer] Grade: 10 Sports: Cheerleading Sports Questionnaire sent to scan, see letter. HNSAFETY Car seat belt always worn: Yes ELECTRONIC MEDIA < 2 hours/ day EDUCATION School: [employer] Grade: 10 School [...] 03/06/2014 97%ile based on CDC 2-20 Years hqmcfbq-vbn-cyv data using vitals from 03/13/2014. 95%ile based on CDC 2-20 Years mlbuyl-nzz-txr data using vitals from 03/13/2014. 89%ile based [...] Specialty care: No See other orders in [facility]. Dental visit recommended: Yes Vision: abnormal--did not have her glasses Hearing: normal Cleared for sports: Yes BMI at 89%ile based on CDC 2-20 Years BMI-for-age data using vitals from 03/13/2014. OBESITY ACTION PLAN Exercise Counseling Performed Nutrition Counseling Performed 5210 FOLLOW-UP: in 1 year for a Preventive Care visit Karyna Bhandari MD, MD [facility] documented in this encounter Nursing Notes Faby [...] encounter documented in this encounter Care Teams [employer] Driver Relationship Specialty Start Date End Date Caterina Elkins MD PCP - General Pediatrics 03/10/13 [address] [address] documented as of this encounter
--- OUTSIDE RECORDS SUMMARY | 2022-03-04 07:10 | XMS_ITS | Clinical Summary ---
:1997 Author Organization [place] Address [address] [place] [address] Care Team Providers Name Role Phone Caterina Elkins MD Primary Care Provider [phone] Allergies No known active allergies Medications [...] mplete this topic 66 Years) Care Teams Family And Consumer Science Professor Relationship Specialty Start Date End Date Caterina Elkins MD PCP - General Pediatrics 03/10/[address] [address]
--- OUTSIDE RECORDS SUMMARY | 2022-03-04 07:10 | XMS_ITS | Encounter Summary ---
:1997 Author Organization [place] Address [address] [place] [address]. [place] [address] Care Team Providers Name Role Phone Caterina Elkins MD Primary Care Provider [phone] Encounter Details Date Type Department Care Team Description 05/05/2020 Medical Correspondence [facility] Scan, Pending sale to [facility] Info Mgmt Non-Provider POST-AMADEO Srvcs DEPRESSION SCALE [address] [place] [address] [place] [address] WELL-CHILD VISITS [phone] Social History Tobacco Use Types Packs/Day Years [...] on filedocumented in this encounter Care Teams Tunnel Heading Inspector Relationship Specialty Start Date End Date Caterina Elkins MD PCP - General Pediatrics 03/10/13 [address] [address] documented as of this encounter
--- OUTSIDE RECORDS SUMMARY | 2022-03-04 07:10 | XMS_ITS | Encounter Summary ---
:1997 Author Organization [place] Address [address] [place] [address] Care Team Providers Name Role Phone Caterina Elkins MD Primary Care Provider [phone] Encounter Details Date Type Department Care Team Description 03/19/2014 Orders Only [facility] Vit evans D deficiency (Primary Dx); [facility] Routine or child heal th check; [address] Dietary surveillance and cou nseling; [place] [address] Allergic state, initial enco unter [phone] Social History Tobacco Use Types Packs/Day Years [...] Component Value Ref Test Analysis Performed At [facility] gist Range Method Time Signature IGE [...] LAB - BLOOD ORDERABLES Performing Organization Address [facility] Phon e Number [address] LABS (ABNORMAL) Vitamin D Deficiency (03/19/2014 9:35 AM CDT) athologist Signature Vitamin D 19 (L) 30 - 75 [facility] Deficiency ug/L [facility] LABS Comment: Season, race, dietary intake, and treatm ent affect the concentration of 81-ioiqrht-Cjfebaq D. Values may decrea se during winter [...] questions, pl ease contact the laboratory at [phone]. Specimen Anatomical Collection Method Collection Time Receive d Time (Source) Location / / Volume Laterality Blood specimen 03/19/2014 9:35 AM 014 9:40 (specimen) CDT AM CDT Zohaib Bhandari MD LAB - BLOOD ORDERABLES Performing Organization Address [facility] Phon e Number [address] LABS Comprehensive metabolic panel (03/19/2014 9:35 AM CDT) athologist Signature Sodium 138 133 - 144 [facility] mmol/L [place] Potassium 3.6 3.4 - 5.3 [facility] mmol/L [place] Chloride 105 96 - 110 [facility] mmol/L [place] Carbon Dioxide 25 20 - 32 [facility] S mmol/L [place] Anion Gap 8 6 - 17 [facility] mmol/L [place] Glucose 88 70 - 99 [facility] mg/dL [place] Comment: Effective 02/20/2014, the reference range for this assay has changed to reflect new instrumentation/methodology. Urea Nitrogen 8 7 - 19 mg/dL [facility] [place] Comment: Effective 02/20/2014, the reference range for this assay has changed to reflect new instrumentation/methodology. Creatinine 0.67 0.50 - 1.00 [facility] mg/dL [place] GFR Estimate >90 >60 mL/min/1.7m2 [facility] Non GFR Calc [place] GFR Estimate If Black >90 >60 mL/min/1.7m2 [facility] GFR Calc [place] Calcium 9.4 9.1 - 10.3 mg/dL [facility] [place] Comment: Effective 02/20/2014, the reference range for this assay has changed to reflect new instrumentation/methodology. Bilirubin Total 0.7 0.2 - 1.3 mg/dL [facility] Albumin 4.2 3.9 - 5.1 g/dL [facility] S [place] Protein Total 7.5 6.8 - 8.8 g/dL [facility] [place] Alkaline Phosphatase 71 40 - 150 U/L [facility] ALT 11 0 - 50 U/L [facility] AST 7 0 - 35 U/L [facility] Specimen Anatomical Collection Method Collection Time Receive d Time (Source) Location / / Volume Laterality Blood specimen 03/19/2014 9:35 AM 014 9:40 (specimen) CDT AM CDT Zohaib Bhandari MD LAB - BLOOD ORDERABLES Performing Organization Address City/State/ZIP Code Phon e Number [facility] [place] [address] [place] [address] [facility] [address] [place], [place] [address] TSH with free T4 reflex (03/19/2014 9:35 AM CDT) athologist Signature TSH 2.11 0.40 - 4.00 [facility] mU/L [place] Comment: Effective 02/20/2014, the reference range for this assay has changed to reflect new instrumentation/methodology. Specimen Anatomical Collection Method Collection Time Receive d Time (Source) Location / / Volume Laterality Blood specimen 03/19/2014 9:35 AM 014 9:40 (specimen) CDT AM CDT Zohaib Bhandari MD LAB - BLOOD ORDERABLES Performing Organization Address City/State/ZIP Code Phon e Number [facility] [address] [place] [address] [facility] [address] [place], [place] [address] HIV Antigen Antibody Combo (03/19/2014 9:35 AM CDT) [facility] gist Method Time Signature HIV Antigen Nonreactive [facility] Antibody HIV-1 p24 Ag & HIV-1/HIV-2 Ab Not Detected [facility] LABS Specimen Anatomical Collection Method Collection Time Receive d Time (Source) Location / / Volume Laterality Blood specimen 03/19/2014 9:35 AM 014 9:40 (specimen) CDT AM CDT Zohaib Bhandari MD LAB - BLOOD ORDERABLES Performing Organization Address City/State/ZIP Code Phon e Number [facility] [address] [place] [address] [facility] LABS Lipid panel reflex to direct LDL (03/19/2014 9:35 AM CDT) athologist Signature Cholesterol 129 <170 mg/dL [facility] Comment: LDL Cholesterol is the primary guide to therapy. The NCEP recommends further evaluation of: patients with cholesterol greater than 200 mg/dL if additional risk facto rs are present, cholesterol greater than 240 mg/dL, triglycerides greater than 1 50 mg/dL, or HDL less than 40 mg/dL. Triglycerides 50 0 - 150 mg/dL [facility] [place] HDL Cholesterol 66 >45 mg/dL [facility] [place] LDL Cholesterol Calculated 53 0 - 129 mg/dL [facility] Comment: LDL Cholesterol is the primary guide to therapy: LDL-cholesterol goal in high risk patients is <100 mg/dL and in very high risk patients is <70 mg/dL. VLDL-Cholesterol 10 0 - 30 mg/dL [facility] [place] Cholesterol/HDL Ratio 2.0 0.0 - 5.0 [facility] Specimen Anatomical Collection Method Collection Time Receive d Time (Source) Location / / Volume Laterality Blood specimen 03/19/2014 9:35 AM 014 9:40 (specimen) CDT AM CDT Zohaib Bhandari MD LAB - BLOOD ORDERABLES Performing Organization Address City/State/ZIP Code Phon e Number [facility] [place] [address] [place] [address] [facility] [address], [place] [address] CBC with platelets differential (03/19/2014 9:35 AM CDT) [facility] gist Method Time Signature WBC 5.2 4.0 - [facility] 11.0 [facility] 10e9/L [place] RBC Count 3.92 3.7 - 5.3 [facility] 10e12/L [facility] Hemoglobin 11.8 11.7 - [place] 15.7 g/dL [facility] Hematocrit 35.7 35.0 - [place] 47.0 % [facility] MCV 91 77 - 100 [facility] MCH 30.1 26.5 - [place] 33.0 pg [facility] MCHC 33.1 31.5 - [place] 36.5 g/dL [facility] RDW 11.6 10.0 - [place] 15.0 % [facility] Platelet Count 270 150 - 450 [place] 10e9/L [facility] Diff Method Automated [facility] % Neutrophils 47.1 % [facility] % Lymphocytes 41.6 % [facility] % Monocytes 7.0 % [facility] % Eosinophils 3.7 % [facility] % Basophils 0.6 % [facility] Absolute 2.4 1.3 - 7.0 [place] Neutrophil 10e9/L [facility] Absolute 2.2 1.0 - 5.8 [place] Lymphocytes 10e9/L [facility] Absolute 0.4 0.0 - 1.3 [place] Monocytes 10e9/L [facility] Absolute 0.2 0.0 - 0.7 [place] Eosinophils 10e9/L [facility] Absolute 0.0 0.0 - 0.2 [place] Basophils 10e9/L [facility] Specimen Anatomical Collection Method Collection Time Receive d Time (Source) Location / / Volume Laterality Blood specimen 03/19/2014 9:35 AM 014 9:40 (specimen) CDT AM CDT Zohaib Bhandari MD LAB - BLOOD ORDERABLES Performing Organization Address City/State/ZIP Code Phon e Number [facility] [address] [place], [place] [address] [address] documented in this encounter Visit Diagnoses Diagnosis Vitamin D deficiency - Primary Unspecified vitamin D deficiency Dietary surveillance and counseling Allergic state, initial encounter documented in this encounter Care Teams Garageman Relationship Specialty Start Date End Date Caterina Elkins MD PCP - General Pediatrics 03/10/13 [address] [place] [address] documented as of this encounter
--- OUTSIDE RECORDS SUMMARY | 2022-03-04 07:10 | XMS_ITS | Encounter Summary ---
:1997 Author Organization [place] Address Psychiatric [facility]0 [facility] [place] [address] Care Team Providers Name Role Phone Caterina Elkins MD Primary Care Provider [phone] Encounter Details Date Type Department Care Team Description 11/20/2020 Medical Correspondence [facility] Scan, [facility] Info Mgmt Non-Provider POST- Srvcs DEPRESSION SCALE [address] [place] [address] [place] [address] WELL-CHILD VISITS [phone] Social History Tobacco Use Types Packs/Day Years [...] on filedocumented in this encounter Care Teams Acreage Reporter Relationship Specialty Start Date End Date Caterina Elkins MD PCP - General Pediatrics 03/10/13 [address] [address] documented as of this encounter
--- OUTSIDE RECORDS SUMMARY | 2022-03-04 07:10 | XMS_ITS | Encounter Summary ---
:1995 Author Organization [place] Address [address] [place] [address]. [place] [address] Care Team Providers Name Role Phone Doctor, None MD Primary Care Provider Unavailable Reason for Referral Referral not Required - Closed Specialty Diagnoses / Procedures Referred By Contact Refer red To Contact Diagnoses Routine infant or child health check Jax Solomon MD [facility] [address] OPHTHALMOLOGY [facility] [address] [place] [address] [address] [place] [address] Phone: [phone] Fax: Referral ID Status Reason Start Date Expiration Date Visits Requ ested Visits Authorized [id number] Closed 07/11/2010 07/11/2010 1 1 TRANSITIONS MANAGER Reason for Visit Reason Comments Physical Encounter Details Date Type Department Care Team Description 07/11/[address] [facility] Routine or Clinic Héctor Bronson MD child health check [address] (Primary Dx) [place] [address] Social History Tobacco Use Types Packs/Day Years Used Date Never Smoker Alcohol Use Standard Drinks/Week Comments No 0 (1 standard drink = 0.6 oz pure alcoho l) Sex Assigned at Date Recorded Not on file documented as of this encounter Last Filed Vital Signs Vital Sign Reading Time Taken Comments Blood Pressure 108/62 07/11/2010 9:13 AM CARE TRANSITIONS MANAGER Pulse - - Temperature - - Respiratory Rate - - Oxygen Saturation - - Inhaled Oxygen Concentration - - Weight 75.3 kg (166 lb) 07/11/2010 9:13 AM CARE TRANSITIONS MANAGER Height 172.1 cm (5' 7.75) 07/11/2010 9:13 AM CARE TRANSITIONS MANAGER Body Mass Index 25.43 07/11/2010 9:13 AM CARE TRANSITIONS MANAGER Body Mass Index Percentile 93.30 % 07/11/2010 [...] since last physical Language(s) spoken at home: Guyanese ENVIRONMENTAL RISK ASSESSMENT Is your child around anyone who smokes? NO Seat belt? YES Bike/sport helmet? YES TB exposure? NO Pets in the home? NO Guns/firearms in the home? NO Water source: LTG Exam Prep Platform CHICKEN POX HISTORY: Patient has had chicken pox DEVELOPMENTAL/ Behavioral Screening form: Form not indicated at this visit. VISION see nursing notes HEARING see nursing notes REQUIRED VITAL SIGNS COMPLETED: yes BP 108/62 Ht 5' 7.75 (1.721 m) Wt 166 lb (75.297 kg) LMP 07/03/2010 98.02% of growth percentile based on emjabls-ghj-fwx. 97.48% of growth percentile based on icyagd-qmi-cyr. 93.28% of growth percentile based on BMI-for-age. [...] 6 months RTC: 1 year [facility] visit TRANSITIONS MANAGER documented in this encounter Nursing Notes 07/11/2010 [...] nts PEDIATRIC OPHTHALMOLOGY Routine 09/15/[address] COUNSELLOR REFERRAL child health check HC SCREENING TEST, PURE Routine 07/11/2010 9:40 AM Routine inf ant or TONE, AIR ONLY CARE TRANSITIONS MANAGER child health check documented in this encounter Results OPHTHALMOLOGY PEDS REFERRAL (09/15/2010) Narrative This result has an attachment that is no t available. Jax Solomon MD REFERRAL documented in this encounter Visit Diagnoses Diagnosis Routine or child health check - P rimary documented in this encounter Care Teams Fish Icer Relationship Specialty Start Date End Date Doctor, None, PCP - General 09/08/01 03/09/13 documented as of this encounter
--- OUTSIDE RECORDS SUMMARY | 2022-03-04 07:11 | XMS_ITS | Encounter Summary ---
:1997 Author Organization [place] Address [address] [place] [address] Care Team Providers Name Role Phone Doctor, Juan LEIJA Primary Care Provider Unavailable Reason for Visit Reason Comments immun. dates Encounter Details Date Type Department Care Team Description 04/11/[address] [facility] Yaakov balderrama, Surekha Blandon MD [facility] [address] CLINIC AND [place], [place] [phone] [address] [facility] [phone] [place] [address] (Wo rk) Social History Tobacco [...] PM >> CALL RECEIVED. Contact: kathy bedolla [phone] please check paper cht for transfered immun. dates. mom needs all dates. [facility] has kinder shots onlyplease call mom when done. cht requested. [place] Zamora LPN documented in this encounter Plan of Treatment Not on filedocumented as of this encounter Visit Diagnoses Not on filedocumented in this encounter Care Teams Wireless Store Manager Relationship Specialty Start Date End Date Doctor, Juan, PCP - General 09/08/01 03/09/13 documented as of this encounter
--- OUTSIDE RECORDS SUMMARY | 2022-03-04 07:11 | XMS_ITS | Encounter Summary ---
:1995 Author Organization [place] Address [address] [place] [address] Care Team Providers Name Role Phone Doctor, None Primary Care Provider Unavailable Reason for Visit Reason Comments Well Child Encounter Details Date Type Department Care Team Description 04/05/2006 Office Visit [facility] Octavio Elkins CHILD HEALTH Clinic [place] MD Miriam EXAM (Primary Dx) [address] [place] [address] [place] [phone] (Wo rk) Social History Tobacco Use Types [...] since last physical Language(s) spoken at home: [place] 3rd grade ENVIRONMENTAL RISK ASSESSMENT Is your child around anyone who smokes? NO Booster seat/ seat belt? YES Bike/ sport helmet? YES TB exposure? NO Pets in the home? YES 8 fish 2 dogs 2 cats bird & hamster Guns/firearms in the home? NO Water source: [facility] water CHICKEN POX HISTORY: Patient has had [...] (43.1kg) 91.48% of growth percentile based on gqugbqo-eha-wbf. 96.32% of growth percentile based on homaeo-nud-agh. 94.49% of growth percentile based on BMI-for-age. [...] up to date See other orders in [facility] Referrals/Ongoing Specialty care: Yes, for eye exam, [...] changes in family history since last physical. [place] Prescreen: Not applicable. Lead Risk Questionaire: Not [...] rimary documented in this encounter Care Teams Ict Developer Relationship Specialty Start Date End Date Doctor, Juan, PCP - General 09/08/01 03/09/13 documented as of this encounter
--- OUTSIDE RECORDS SUMMARY | 2022-03-04 07:11 | XMS_ITS | Encounter Summary ---
:1995 Author Organization [place] Address [address] [place] [address] Care Team Providers Name Role Phone Doctor, None Primary Care Provider Unavailable Reason for Visit Reason Comments Cough Encounter Details Date Type Department Care Team Description 07/14/[address] [facility] Surekha Garrido ACUTE SINUSITIS NOS Clinic [place] MD Jamia (Primary Dx) 303 [facility] SP [facility] [place], [place] [address] [address] [place], [place] [phone] (Wo rk) Social History Tobacco Use Types Packs/Day Years Used Date Never Assessed Sex Assigned at Date Recorded Not on file documented as of this encounter Last Filed Vital Signs Vital Sign Reading Time Taken Comments Blood Pressure - - Pulse - - Temperature 36.1 ??C (97 ??F) 07/14/2004 11:13 AM RETAIL SALES TEAMMATE Respiratory Rate - - Oxygen Saturation - - Inhaled Oxygen Concentration - - Weight 29.5 kg (65 lb) 07/14/2004 11:13 AM RETAIL SALES TEAMMATE Height - - Body Mass Index - - documented in this encounter Progress Notes 07/14/2004 11:00 AM RETAIL SALES TEAMMATE Sonia Allen is a 9 year old [...] Primary documented in this encounter Care Teams Inventory Administrator Relationship Specialty Start Date End Date Doctor, Juan, PCP - General 09/08/01 03/09/13 documented as of this encounter
--- OUTSIDE RECORDS SUMMARY | 2022-03-04 07:11 | XMS_ITS | Encounter Summary ---
:1995 Author Organization [place] Address [address] [place] [address] Care Team Providers Name Role Phone Doctor, Juan LEIJA Primary Care Provider Unavailable Reason for Visit Reason Comments otitis media-acute right Right OM Encounter Details Date Type Department Care Team Description 09/14/2003 Abstract [facility] Urgent Lizzie Melgar PA-C Care [facility] [address] [facility] [address] [address] [place] [address] [phone] Social History Tobacco Use Types Packs/Day Years Used Date Never Assessed Sex Assigned at Date Recorded Not on file documented as of this encounter Progress Notes 09/14/2003 11:59 PM BOARD OF EDUCATION SECRETARY Zithromax 200/5ml 1 1/2 qd x 3 25ml Motrin, Increase fluids THIS INFORMATION HAS BEEN ABSTRACTED FRO M THE URGENT CARE CHART documented in this encounter Plan of Treatment Not on filedocumented as of this encounter Visit Diagnoses Not on filedocumented in this encounter Care Teams Instrument Fitter Relationship Specialty Start Date End Date Doctor, MD Juan PCP - General 09/08/01 03/09/13 documented as of this encounter
--- OUTSIDE RECORDS SUMMARY | 2022-03-04 07:11 | XMS_ITS | Encounter Summary ---
:1995 Author Organization [place] Address [address] [place] [address] Care Team Providers Name Role Phone DoctorJaun MD Primary Care Provider Unavailable Reason for Visit Reason Comments Derm Problem Encounter Details Date Type Department Care Team Description 08/06/2002 Office Visit [facility] Janey SKIN DISOR DERS [facility] MD Tirso (Primary Dx) [place] [address] [place] [phone] Social History Tobacco Use Types Packs/Day Years Used Date Never Assessed Sex Assigned at Date Recorded Not on file documented as of this encounter Last Filed Vital Signs Vital Sign Reading Time Taken Comments Blood Pressure - - Pulse - - Temperature 36.6 ??C (97.9 ??F) 08/06/2002 3:00 PM AUTOMOTIVE SERVICE MANAGER Respiratory Rate - - Oxygen Saturation - - Inhaled Oxygen Concentration - - Weight 22.7 kg (50 lb) 08/06/2002 3:00 PM AUTOMOTIVE SERVICE MANAGER Height - - Body Mass Index - [...] ry documented in this encounter Care Teams Plumbing Installer Relationship Specialty Start Date End Date Juan Dan MD PCP - General 09/08/01 03/09/13 documented as of this encounter
--- OUTSIDE RECORDS SUMMARY | 2022-03-04 07:11 | XMS_ITS | Encounter Summary ---
:1995 Author Organization [place] Address [address] [place] [address] Care Team Providers Name Role Phone Doctor, None Primary Care Provider Unavailable Reason for Visit Reason Comments Derm Problem Encounter Details Date Type Department Care Team Description 03/23/2004 Office Visit [facility] Surekha Garrido [facility] Clinic [place] MD Jamia (Primary Dx) 303 [facility] [place], [place] [address] [facility] [address] [place], [place] [phone] (Wo rk) Social History Tobacco Use [...] of itching, noticed it yesterday. Lelia Johnson LAUNDRY OPERATOR FINISHING documented in this encounter Plan of Treatment Not on filedocumented as of this encounter Procedures Procedure Name Priority Date/Time Associated Diagnosis Comme nts HCL CULTURE, Routine 03/23/2004 2:29 PM Skin Disorders Nec Res ults for this FUNGUS, CDT procedure are i n SKIN,HAIR,NAIL the results section. documented in this encounter Results FUNGUS CULTURE, SKIN,HAIR,NAIL (03/23/2004 2:29 PM CDT) [facility] Method Time Signature Specimen Skin [facility] Description [facility] Culture Micro No growth [facility] after 28 UNIVERSITY days [facility] Report status FINAL [facility] [id number] [facility] Specimen Anatomical Collection Method Collection Time Receive d Time (Source) Location / / Volume Laterality SPECIMEN FROM SKIN 03/23/2004 2:29 PM 2:34 / Unknown CDT PM CDT Surekha Garrido MD LABORATORY Performing Organization Address City/State/ZIP Code Phon e Number [facility] [address] [place] [address] [facility] documented in this encounter Visit Diagnoses Diagnosis Other specified disorder of skin - Prima ry documented in this encounter Care Teams Waste Transportation Technician Relationship Specialty Start Date End Date Doctor, None, PCP - General 09/08/01 03/09/13 documented as of this encounter
--- OUTSIDE RECORDS SUMMARY | 2022-03-04 07:11 | XMS_ITS | Encounter Summary ---
:1997 Author Organization [place] Address [address] [place] [address] Care Team Providers Name Role Phone Doctor, Juan LEIJA Primary Care Provider Unavailable Encounter Details Date Type Department Care Team Description 11/14/2002 Abstract [facility] inletha Enamorado, Marialuisa [address] [place] [address] Social History Tobacco Use Types Packs/Day Years Used Date Never Assessed Sex Assigned at Date Recorded Not on file documented as of this encounter Plan of Treatment Not on filedocumented as of this encounter Procedures Procedure Name Priority Date/Time Associated Diagnosis Comme nts ABSTRACT [facility] REPORT Routine 11/14/2002 documented in this encounter Results ABSTRACT [facility] REPORT (11/14/2002) Narrative This result has an attachment that is no t available. Marialuisa Enamorado LABORATORY documented in this encounter Visit Diagnoses Not on filedocumented in this encounter Care Teams Rouge Sifter And Miller Relationship Specialty Start Date End Date DoctorJuan MD PCP - General 09/08/01 03/09/13 documented as of this encounter
--- OUTSIDE RECORDS SUMMARY | 2022-03-04 07:11 | XMS_ITS | Encounter Summary ---
:1997 Author Organization [place] Address [address] [place] [address] Care Team Providers Name Role Phone Doctor, None MD Primary Care Provider Unavailable Reason for Referral - Closed Specialty Diagnoses / Procedures Referred By Contact Refer red To Contact Diagnoses Routine or child health check Surekha Garrido MD [facility] [address] [place] [address] Referral ID Status Reason Start Date Expiration Date Visits Requ ested Visits Authorized [id number] Closed 03/25/2004 07/24/2011 1 1 Reason for Visit Reason Comments Well Child Encounter Details Date Type Department Care Team Description 03/25/2004 Office Visit [facility] Surekha Garrido CHILD HEALTH EXAM (Primary Dx); Clinic Héctor Blandon MD MYOPIA 303 [facility] [place] [address] [address] [facility] [address] [place], [place] [phone] (Wo rk) Social History Tobacco Use Types Packs/Day Years Used Date Never Assessed Sex Assigned at Date Recorded Not on file documented as of this encounter Last Filed Vital Signs Vital Sign Reading Time Taken Comments Blood Pressure 98/62 03/25/2004 2:45 PM CDT Pulse - - Temperature 36.8 ??C (98.2 ??F) 03/25/2004 2:45 PM CDT Respiratory Rate - - Oxygen Saturation - - Inhaled Oxygen Concentration - - Weight 27.9 kg (61 lb 8 oz) 03/25/2004 2:45 PM CDT Height 127.6 cm (4' 2.25) 03/25/2004 2:45 PM CDT Body Mass Index 17.12 03/25/2004 2:45 PM CDT Body Mass Index Percentile 80.52 % 03/25/2004 2:45 PM CD T Growth Chart: [facility] (Girls, 2-20 Years) documented in this encounter Progress Notes 03/25/2004 2:45 PM CDT Sonia Allen is an 8 year old female here for a routine health maintenance visit, accompanie d by her sister(s) and maternal grandmother QUESTIONS / CONCERNS: NO HEALTH HISTORY SINCE LAST SIT: There have been: No surgery, major illness or injury since last physical exam Medical Hx: Revie w of patient's past medical history indicates: NO ACTIVE PROBLEMS . There is no previous medical history on file. FAMILY / SOCIAL HISTORY: Recent family change s/stresses: no Child lives with: mother, sister(s), brother(s) and maternal grandmother. Environment al/ Social risks: No Risks DAILY ACTIVITIES: NUTRITION: Eats breakfast: Yes drinks milk, little meat, adequate calcium intake SLEEP: No concerns, sleeps well through night EXERCISE: Recreational e xercise: rides bike (helmet advised) TV/ Media: several hours per day EDUCATION: home schooled for one year, working on workbooks for 1-2 hours per day. Behavior: no concerns ROS: Review of systems negative for constitutional, HEENT, respiratory, cardiovascular, gastrointestinal,genitourinary, en docrine, neurological, skin, and hematologic issues, other than as above. OBJECTIVE: HEARING: See nursing notes. VISION: See nursing notes. Allergies: Review of the patient's allergies finds: N o Known Allergies PHYSICAL EXAMINATION: Normal fem chinmay exam: GENERAL: Alert, vigorous, kandi apparent distress. HEAD: The head is normocephalic. EYES: T he conjunctivae and cornea normal. Corneal light reflex symmetric. PERRLA. No abnormalities noted on fundoscopic exam. EARS: The external auditory canals are clear and the tympanic membranes are nor mal. NOSE: No drainage. Turbinates normal size and color. THROAT: The throat is clear. No tonsilar hypertrophy. NECK: The neck is supple and thyroid is nonpalpable. LYMPH NODES: There are no palpably enlarged lymph nodes. LUNGS: The lung ruelas are clear to auscultation. HEART: The precordium is quie t. Regular rate and rhythm without murmur. S1 and S2 are normal. ABDOMEN: Abdomen is soft. No masses . No hepatosplenomegally. The bowel sounds are normal. GENITALIA: Jelani stage I. Appearance externa l genitalia normal. EXTREMITIES: FROM all joints. No marked rotational or angular deformities. NEURO LOGIC: Normal tone throughout. Has normal reflexes for age SKIN: Skin is clear of rashes.. PLAN/ SESSMENT: Well child with normal growth and development See todays' orders. RECOMMENDED DENT AL VISIT LITERATURE: age appropriate RTC: One year for next well child exam I have discussed with the patient the risks, benefits, medications, treatment options and modalities. I have instruct ed the patient to call or schedule a follow-up appointment if any problems or failure to improve. AN TICIPATORY GUIDANCE: The following topics were discussed: Social/Parenting: Encourage reading, Limit / supervise TV/ media, Chores, Limits and consequences, Friends and Conflict resoultion Nutrition: Healthy snacks, Family meals and Balanced diet Health: Physical activity, Regular de ntal care and Sleep Sexuality: Body changes with puberty Safety: Seat belts, Contact spor ts and Bike/sport helmets documented in this encounter Nursing Notes 03/25/2004 2:45 PM CDT >> TAMIKA MURRELL 03/25/2004 3:21 pm Audiology screen: Right ear: 500Hz--5dB 1000Hz--0dB 2000Hz--0dB 4000Hz--5dB Left ear: 500Hz--10dB 1000Hz--5db 2000Hz--0db 4000Hz--10dB Vision Acuity -- Right Eye: 20/70 Left eye: 20/50 Both Eyes: 20/50 Tamika Murrell MA >> AMAYA ROSS 03/25/2004 2:25 pm Sonia is an 8 year old female here for a routine health maintenance visit, accompanied by her Parent(s), sister(s) and maternal grandparent. There are no concerns. No recent social changes/stressors. [place] Prescreen: Not applicable. Lead Risk Questionaire: Not applicable Amaya Ross RN documented in this encounter Plan of Treatment Not on filedocumented as of this encounter Procedures Procedure Name Priority Date/Time Associated Diagnosis Comme nts ZZ CONSULT Routine 04/24/2004 Routine Child Health OPHTHALMOLOGY Exam [facility] TITMUS VISION Routine 03/25/2004 2:47 PM Routine Child Hea lth SCREENING CDT Exam HC SCREENING TEST, PURE Routine 03/25/2004 2:47 PM [facility]ine [facility] TONE, AIR ONLY CDT Exam documented in this encounter Results CONSULT OPHTHALMOLOGY (04/24/2004) Narrative This result has an attachment that is no t available. Surekha Garrido MD REFERRAL documented in this encounter Visit Diagnoses Diagnosis Routine or child health check - P rimary Myopia documented in this encounter Care Teams Chopper Feeder Relationship Specialty Start Date End Date Doctor, None, PCP - General 09/08/01 03/09/13 documented as of this encounter
--- OUTSIDE RECORDS SUMMARY | 2022-03-04 07:11 | XMS_ITS | Encounter Summary ---
:1995 Author Organization [place] Address [address] [place] [address] Care Team Providers Name Role Phone Doctor, None MD Primary Care Provider Unavailable Reason for Referral - Closed Specialty Diagnoses / Procedures Referred By Contact Refer red To Contact Diagnoses Myopia Surekha Garrido MD [facility] [address] [place], [place] [address] Referral ID Status Reason Start Date Expiration Date Visits Requ ested Visits Authorized [id number] Closed 07/09/2003 07/24/2011 1 1 TARY PERSONNEL SPECIALIST Reason for Visit Reason Comments Other needs eyes and ears checked Encounter Details Date Type Department Care Team Description [facility] Clinic Héctor Blandon MD MYOPIA 303 [facility] [place] [address] [address] [facility] [address] [place], [place] [phone] (Wo rk) Social History Tobacco Use Types Packs/Day Years Used Date Never Assessed Sex Assigned at Date Recorded Not on file documented as of this encounter Last Filed Vital Signs Vital Sign Reading Time Taken Comments Blood Pressure 92/50 07/09/2003 2:15 PM MILITARY PERSONNEL SPECIALIST Pulse - - Temperature 36.4 ??C (97.6 ??F) 07/09/2003 2:15 PM MILITARY PERSONNEL SPECIALIST Respiratory Rate - - Oxygen Saturation - - Inhaled Oxygen Concentration - - Weight 26.8 kg (59 lb) 07/09/2003 2:15 PM MILITARY PERSONNEL SPECIALIST Height 123.2 cm (4' 0.5) 07/09/2003 2:15 PM MILITARY PERSONNEL SPECIALIST Body Mass Index 17.63 07/09/2003 2:15 PM MILITARY PERSONNEL SPECIALIST Body Mass Index Percentile 88.69 % 07/09/2003 2:15 PM CS T Growth Chart: [facility] (Girls, 2-20 Years) documented in this encounter Progress Notes 07/09/2003 2:15 PM RENE Scott is an 8 year old female here for a routine health maintenance visit. There are concerns abou t vision, seems to be sitting closer to the tv to see. Interval health history includes no changes. DAILY ACTIVITIES: School this year involved started home schooling this year, no problems per grand ma Diet currently includes 2% milk and a good variety of foods Sleep routine includes regular bedtime routine ROS: Review of systems negative for constitutional, HEENT, respiratory, cardiovascular, g astrointestinal, genitourinary, endocrine, neurological, skin, and hematologic issues, other than as above. PAST MEDICAL HISTORY: There is no previous medical history on file. There is no previous surg ical history on file. FAMILY / SOCIAL HISTORY: No recent family changes or environmental risk factor s identified. PHYSICAL EXAMINATION: BP 92/50 Temp (Src) 97.6 (Oral) Ht 4' .5 (1.23m) Wt 5 9 lbs (26.8kg) Exam: GENERAL: Alert, vigorous, in no acute distress. SKIN: Skin is clear of rashes HEAD: The head is normocephalic. EYES: The conjunctivae and cornea normal. Corneal light reflex symm etric. PERRLA. No abnormalities noted on fundoscopic exam. EYES: see nursing notes for vision exam EARS: The external auditory canals are clear and the tympanic membranes are normal. NOSE: Clearof rayray inage. Turbinates normal size and color. THROAT: The throat is clear. No tonsilar hypertrophy. NECK : The neck is supple and thyroid is nonpalpable. LYMPH NODES: There are no palpably enlarged lymph no viridiana. LUNGS: The lung ruelas are clear to auscultation. HEART: The precordium is quiet. Regular rate a nd rhythm without murmur. S1 and S2 are normal. The femoral pulses are normal. ABDOMEN: . Abdomen is soft. No masses. No hepatosplenomegally. The bowel sounds are normal. GENITALIA: Jelani stage I with normal appearing genitalia. No inguinal herniae are present. EXTREMITIES: FROM all joints. NEUROLOGI C: Normal tone throughout. Normal reflexes for age.. ANTICIPATORY GUIDANCE: Parenting issues incl uding monitoring TV content, reasonable TV limits, encouraging reading, encouraging exercise, encoura ging self responsibility, establishing chores and regular bedtime routine. Play/development issues in cluding demonstrating interest in child's activities and times to play with peers. Health issues incl uding regular dental care. Nutrition issues including balanced diet, vitamin/fluoride supplements and calcium requirements/supplements. Safety issues including accident prevention, seat belts and helmet safety.. IMMUNIZATIONS: No immunizations given today. ASSESSMENT: 8 year old Well Child Vis it with normal growth. MYOPIA [367.1] refer to ophtho PLAN: Referal(s) given today as per orders. RTC 6-7 year health care maintenance visit. I have discussed with the patient the risks, benefits, medications, treatment options and modalities. I have instructed the patient to call or schedule a follow-up appointment if any problems or failure to improve. documented in this encounter Nursing Notes 07/09/2003 2:15 PM CST >> SLIM CHAN 07/09/2003 2:32 pm vision acuity. LT=20/50, RT=20/40 Zena Chan LPN >> SLIM CHAN 07/09/2003 1:48 pm Grandma here w/ pt states needs vision and hearing screens. Zena Chan LPN documented in this encounter Plan of Treatment Not on filedocumented as of this encounter Visit Diagnoses Diagnosis Routine or child health check - P rimary Myopia documented in this encounter Care Teams News Production Supervisor Relationship Specialty Start Date End Date Doctor, None, PCP - General 09/08/01 03/09/13 documented as of this encounter
--- NOTE | 2022-03-04 07:15 | CRLHL7_ITS ---
For Patients: As a result of the Century Cures Act, medical imaging exams and procedure reports are released immediately into your electronic medical record. You may view this report before your referring provider. If you have questions, please contact your health care provider. INDICATION: Third trimester scan, evaluate growth. OTHER MALFORMATION OF PLACENTA COMPARISON: 12/18/2021, 12/04/2021 TECHNIQUE: Real time villa scale imaging of the fetus was performed. FINDINGS: Sonographic imaging demonstrates a single living intrauterine gestation. Fetus demonstrates a regular cardiac rate of 131 beats per minute. Fetus has a vertex position. The placenta lies posteriorly without evidence of placenta previa. Amniotic fluid volume appears normal and there is a single deepest vertical pocket: 4.3 cm. The estimated weight is 2731gm which lies at the greater than 97th %. On the prior OB ultrasound exam dated 12/04/2021 the estimated weight was at the 97th%. BPD, HC, AC, FL all greater than 97th percentile. The HC/AC ratio measures 1.06 range (0.92-1.07). IMPRESSION: Sonographic gestational age 36 weeks 2 days and sonographic due date 03/30/2022. Sonographic age 27 days ahead of the clinical age. Estimated weight greater than 97th percentile. BPD/HC/AC/FL all greater than 97th percentile. The placenta is posterior but not well-visualized. Dictated by Darrick William MD @ 03/04/2022 9:02:48 AM (Electronically Signed)
== END 2022-03-04 07:08 | disposition home or self-care (01) ==
LOC: US 07:08
PROVIDERS: PCP Physician Assistant Medical; Visit Provider Physician Assistant
DX: O43.193 Other malformation of placenta, third trimester (principal); Z3A.36 36 weeks gestation of pregnancy
CPT/HCPCS: 76816

== ENCOUNTER 2022-04-02 09:43 | Outpatient (CLI) | payer OTHER, SELFPAY ==
--- OUTSIDE RECORDS SUMMARY | 2022-04-02 10:47 | XMS_ITS | Encounter Summary ---
:1995 Author Organization [place] Address [address] [place] [address] Care Team Providers Name Role Phone Caterina Elkins MD Primary Care Provider [phone] Reason for Visit Reason Comments Well Child 18 year px. Encounter Details Date Type Department Care Team Description 03/13/2014 Office Visit [facility] Karyna Bhandari or child health check (Primary Dx); Clinic [place] MD Linda Allergic state, initial encounter; [address] Dietary surve illance and counseling [facility] [address] [place] [address] [phone] Social History Tobacco Use Types Packs/Day Years [...] this encounter Patient Instructions Patient InstructionsFaby Celeste, RACQUET MAKER - 03/13/2014 9:35 AM CDT Preventive Care at the 15 - 18 Year Visit Growth Percentiles & Measurements Weight: 177 lbs 0 oz / 80.29 kg / 95%ile based on [facility] 2-20 Years uspfnw-djn-pdu data using vitals from 03/13/2014. Length: 5' 9 / 175.3 cm 97%ile based on [facility] 2-20 Years bnedian-rji-npr data using vitals from 03/13/2014. BMI: Body mass index is 26.13 kg/(m^2). 89%ile based on [facility] 2-20 Years BMI-for-age data using vitalsfrom [...] Never get in a car if the jinriksha driver has been drinking or using drugs. [...] and 2 sisters Language(s) spoken at home: Citizen Of [place] Recent family changes/social stressors: none noted HEALTH [...] Water source: city water SPORTS QUESTIONNAIRE: School: [employer] Grade: 10 Sports: Cheerleading Sports Questionnaire sent to scan, see letter. HNSAFETY Car seat belt always worn: Yes ELECTRONIC MEDIA < 2 hours/ day EDUCATION School: [employer] Grade: 10 School performance / [...] 03/06/2014 97%ile based on CDC 2-20 Years jejrqos-wwd-sgr data using vitals from 03/13/2014. 95%ile based on CDC 2-20 Years gsffvb-mnl-ttw data using vitals from 03/13/2014. 89%ile based [...] Specialty care: No See other orders in [facility]. Dental visit recommended: Yes Vision: abnormal--did not have her glasses Hearing: normal Cleared for sports: Yes BMI at 89%ile based on CDC 2-20 Years BMI-for-age data using vitals from 03/13/2014. OBESITY ACTION PLAN Exercise Counseling Performed Nutrition Counseling Performed 5210 FOLLOW-UP: in 1 year for a Preventive Care visit Karyna Bhandari MD, MD [facility] documented in this encounter Nursing Notes [...] encounter documented in this encounter Care Teams Fleet Administrator Relationship Specialty Start Date End Date Caterina Elkins MD PCP - General Pediatrics 03/10/13 [address] [address] documented as of this encounter
--- OUTSIDE RECORDS SUMMARY | 2022-04-02 10:47 | XMS_ITS | Encounter Summary ---
:1995 Author Organization [place] Address [address] [place] [address] Care Team Providers Name Role Phone Doctor, None Primary Care Provider Unavailable Caterina Elkins MD Primary Care Provider [phone] Reason for Visit Reason Comments Well Child Encounter Details Date Type Department Care Team Description 02/22/[address] [facility] Caterina Elkins infant or child health check (Primary Dx); Clinic Héctor Pineda MD Seasonal allergic rhinitis [address] [place] [address] [place] [address] [phone] (Wo rk) Social History Tobacco Use Types [...] Weight: 95.81%ile based on CDC 2-20 Years htgktx-shs-nxz data. Length: 97.58%ile based on CDC 2-20 Years vtehkjs-fzm-xcq data. BMI: 89.9%ile based on CDC 2-20 [...] whole grains every day. Less healthy foods--like kazakh fries, candy, and chips--should be eaten rarely. [...] your teen is old enough for a fork truck driver???s license, encourage safe driving. Teach your [...] this visit. Based on recommendations from the [place] [employer], at this visityour child [...] away. Next checkup at: PARENT NOTES: ?? [phone] [facility], [address] [place] [address], [place] [address]. All rights reserved. This information is not [...] since last physical Language(s) spoken at home: Yi MNVFC does apply for the following reason: [facility] Care Program (MHCP) enrollee: [place] MedicalAssistance (MA), [facility], or a Prepaid Medical Assistance Program (PMAP) [...] 176 lb (79.833 kg) BMI 25.99 kg/m2 [facility] 02/13/2013 97.58%ile based on CDC 2-20 Years ivrkfau-dpk-vac data. 95.81%ile based on CDC 2-20 Years uultqg-rbh-dui data. 89.9%ile based on CDC 2-20 Years [...] activities EDUCATION / EMPLOYMENT Concerns: no School: [employer] Grade:9th MENTAL HEALTH Concerns: no MENSTRUAL [...] unspecified documented in this encounter Care Teams Cashier Supervisor Relationship Specialty Start Date End Date Doctor, Juan, PCP - General 09/08/01 03/09/13 Caterina Elkins MD PCP - General Pediatrics 03/10/13 [address] [address] documented as of this encounter
--- OUTSIDE RECORDS SUMMARY | 2022-04-02 10:47 | XMS_ITS | Encounter Summary ---
:1995 Author Organization [place] Address [address] [place] [address]. [place] [address] Care Team Providers Name Role Phone Doctor, None MD Primary Care Provider Unavailable Reason for Referral Referral not Required - Closed Specialty Diagnoses / Procedures Referred By Contact Refer red To Contact Diagnoses Routine infant or child health check Jax Solomon MD [facility] [address] OPHTHALMOLOGY [facility] [address] [place] [address] [address] [place] [address] Phone: [phone] Fax: Referral ID Status Reason Start Date Expiration Date Visits Requ ested Visits Authorized [id number] Closed 07/11/2010 07/11/2010 1 1 ER OPERATOR Reason for Visit Reason Comments Physical Encounter Details Date Type Department Care Team Description [facility] H[facility]ctor Bronson MD child health check [address] (Primary Dx) [place] [address] Social History Tobacco Use Types Packs/Day Years Used Date Never Smoker Alcohol Use Standard Drinks/Week Comments No 0 (1 standard drink = 0.6 oz pure alcoho l) Sex Assigned at Date Recorded Not on file documented as of this encounter Last Filed Vital Signs Vital Sign Reading Time Taken Comments Blood Pressure 108/62 07/11/2010 9:13 AM DECKER OPERATOR Pulse - - Temperature - - Respiratory Rate - - Oxygen Saturation - - Inhaled Oxygen Concentration - - Weight 75.3 kg (166 lb) 07/11/2010 9:13 AM DECKER OPERATOR Height 172.1 cm (5' 7.75) 07/11/2010 9:13 AM DECKER OPERATOR Body Mass Index 25.43 07/11/2010 9:13 AM DECKER OPERATOR Body Mass Index Percentile 93.30 % 07/11/2010 [...] since last physical Language(s) spoken at home: Egyptian ENVIRONMENTAL RISK ASSESSMENT Is your child around anyone who smokes? NO Seat belt? YES Bike/sport helmet? YES TB exposure? NO Pets in the home? NO Guns/firearms in the home? NO Water source: [email or web address] CHICKEN POX HISTORY: Patient has had chicken pox DEVELOPMENTAL/ Behavioral Screening form: Form not indicated at this visit. VISION see nursing notes HEARING see nursing notes REQUIRED VITAL SIGNS COMPLETED: yes BP 108/62 Ht 5' 7.75 (1.721 m) Wt 166 lb (75.297 kg) LMP 07/03/2010 98.02% of growth percentile based on agnnjeh-inv-gbe. 97.48% of growth percentile based on ahqosi-thc-jhe. 93.28% of growth percentile based on BMI-for-age. [...] 6 months RTC: 1 year [facility] visit ER OPERATOR documented in this encounter Nursing Notes 07/11/2010 [...] nts PEDIATRIC OPHTHALMOLOGY Routine 09/15/2010 Routine or [employer] PARALEGAL REFERRAL child health check HC SCREENING TEST, PURE Routine 07/11/2010 9:40 AM Routine inf ant or TONE, AIR ONLY DECKER OPERATOR child health check documented in this encounter Results OPHTHALMOLOGY PEDS REFERRAL (09/15/2010) Narrative This result has an attachment that is no t available. Jax Solomon MD REFERRAL documented in this encounter Visit Diagnoses Diagnosis Routine or child health check - P rimary documented in this encounter Care Teams Insulation Worker Relationship Specialty Start Date End Date Doctor, None, PCP - General 09/08/01 03/09/13 documented as of this encounter
--- OUTSIDE RECORDS SUMMARY | 2022-04-02 10:47 | XMS_ITS | Encounter Summary ---
:1997 Author Organization [place] Address [facility] [place] [address] Care Team Providers Name Role Phone Caterina Elkins MD Primary Care Provider [phone] Encounter Details Date Type Department Care Team Description 10/02/2020 Medical Correspondence [facility] Scan, Critical access hospital Info Mgmt Non-Provider POST- Srvcs DEPRESSION SCALE [address] [place] [address] [place] [address] WELL-CHILD VISITS [phone] Social History Tobacco Use Types Packs/Day Years [...] on filedocumented in this encounter Care Teams Flux Core Welder Relationship Specialty Start Date End Date Caterina Elkins MD PCP - General Pediatrics 03/10/13 [address] [address] documented as of this encounter
--- OUTSIDE RECORDS SUMMARY | 2022-04-02 10:47 | XMS_ITS | Encounter Summary ---
:1997 Author Organization [place] Address [facility] [place] [address] Care Team Providers Name Role Phone Caterina Elkins MD Primary Care Provider [phone] Encounter Details Date Type Department Care Team Description 11/20/2020 Medical Correspondence [facility] Scan, Critical access hospital Info Mgmt Non-Provider POST- Srvcs DEPRESSION SCALE [address] [place] [address] [place] [address] WELL-CHILD VISITS [phone] Social History Tobacco Use Types Packs/Day Years [...] on filedocumented in this encounter Care Teams Char House Supervisor Relationship Specialty Start Date End Date Caterina Elkins MD PCP - General Pediatrics 03/10/13 [address] [address] documented as of this encounter
--- OUTSIDE RECORDS SUMMARY | 2022-04-02 10:47 | XMS_ITS | Encounter Summary ---
:1995 Author Organization [place] Address [address] [place] [address]. [place] [address] Care Team Providers Name Role Phone Caterina Elkins MD Primary Care Provider [phone] Encounter Details Date Type Department Care Team Description 05/29/2020 Medical Correspondence [facility] Scan, [facility] Info Mgmt Non-Provider POST-AMADEO Srvcs DEPRESSION SCALE [address] [place] [address] [place] [address] WELL-CHILD VISITS [phone] Social History Tobacco Use Types Packs/Day Years [...] on filedocumented in this encounter Care Teams Attacher Relationship Specialty Start Date End Date Caterina Elkins MD PCP - General Pediatrics 03/10/13 [address] [address] documented as of this encounter
--- OUTSIDE RECORDS SUMMARY | 2022-04-02 10:47 | XMS_ITS | Encounter Summary ---
:1997 Author Organization [place] Address [address] [place] [address] Care Team Providers Name Role Phone Caterina Elkins MD Primary Care Provider [phone] Encounter Details Date Type Department Care Team Description 03/19/2014 Orders Only [facility] Vit evans D deficiency (Primary Dx); [facility] Routine or child heal th check; [address] Dietary surveillance and cou nseling; [place] [address] Allergic state, initial enco unter [phone] Social History Tobacco Use Types Packs/Day Years [...] Component Value Ref Test Analysis Performed At [facility] gist Range Method Time Signature IGE 1,723 [...] LAB - BLOOD ORDERABLES Performing Organization Address [facility] Phon e Number [address] LABS (ABNORMAL) Vitamin D Deficiency (03/19/2014 9:35 AM CDT) athologist Signature Vitamin D 19 (L) 30 - 75 [facility] Deficiency ug/L [facility] LABS Comment: Season, race, dietary intake, and treatm ent affect the concentration of 78-jbqkpcu-Skipkxj D. Values may decrea se during winter [...] questions, pl ease contact the laboratory at [phone]. Specimen Anatomical Collection Method Collection Time Receive d Time (Source) Location / / Volume Laterality Blood specimen 03/19/2014 9:35 AM 014 9:40 (specimen) CDT AM CDT Zohaib Bhandari MD LAB - BLOOD ORDERABLES Performing Organization Address [facility] Phon e Number [address] LABS Comprehensive metabolic panel (03/19/2014 9:35 AM CDT) athologist Signature Sodium 138 133 - 144 [facility] mmol/L HOSPERS Potassium 3.6 3.4 - 5.3 [facility] mmol/L [facility] Chloride 105 96 - 110 [facility] mmol/L [facility] Carbon Dioxide 25 20 - 32 [facility] mmol/L [facility] Anion Gap 8 6 - 17 [facility] mmol/L [facility] Glucose 88 70 - 99 [facility] mg/dL [facility]PERS Comment: Effective 02/20/2014, the reference range for this assay has changed to reflect new instrumentation/methodology. Urea Nitrogen 8 7 - 19 mg/dL [facility] Comment: Effective 02/20/2014, the reference range for this assay has changed to reflect new instrumentation/methodology. Creatinine 0.67 0.50 - 1.00 [facility] mg/dL [facility] GFR Estimate >90 >60 mL/min/1.7m2 [facility] Non GFR Calc [facility] GFR Estimate If Black >90 >60 mL/min/1.7m2 [facility] GFR Calc [place] Calcium 9.4 9.1 - 10.3 mg/dL [facility] Comment: Effective 02/20/2014, the reference range for this assay has changed to reflect new instrumentation/methodology. Bilirubin Total 0.7 0.2 - 1.3 mg/dL [facility] Albumin 4.2 3.9 - 5.1 g/dL [facility] S [facility]OS[facility]ERS Protein Total 7.5 6.8 - 8.8 g/dL [facility] Alkaline Phosphatase 71 40 - 150 U/L [facility] ALT 11 0 - 50 U/L [facility] AST 7 0 - 35 U/L [facility] Specimen Anatomical Collection Method Collection Time Receive d Time (Source) Location / / Volume Laterality Blood specimen 03/19/2014 9:35 AM 014 9:40 (specimen) CDT AM CDT Zohaib Bhandari MD LAB - BLOOD ORDERABLES Performing Organization Address City/State/ZIP Code Phon e Number [facility] [place] [address] [place] [address] [facility] [address] [place], [place] [address] TSH with free T4 reflex (03/19/2014 9:35 AM CDT) athologist Signature TSH 2.11 0.40 - 4.00 [facility] mU/L [facility] Comment: Effective 02/20/2014, the reference range for this assay has changed to reflect new instrumentation/methodology. Specimen Anatomical Collection Method Collection Time Receive d Time (Source) Location / / Volume Laterality Blood specimen 03/19/2014 9:35 AM 014 9:40 (specimen) CDT AM CDT Zohaib Bhandari MD LAB - BLOOD ORDERABLES Performing Organization Address City/State/ZIP Code Phon e Number [facility] [address] [place] [address] [facility] [address] [place], [place] [address] HIV Antigen Antibody Combo (03/19/2014 9:35 AM CDT) [facility] gist Method Time Signature HIV Antigen Nonreactive [facility] Antibody HIV-1 p24 Ag & HIV-1/HIV-2 Ab Not Detected [facility] LABS Specimen Anatomical Collection Method Collection Time Receive d Time (Source) Location / / Volume Laterality Blood specimen 03/19/2014 9:35 AM 014 9:40 (specimen) CDT AM CDT Zohaib Bhandari MD LAB - BLOOD ORDERABLES Performing Organization Address City/State/ZIP Code Phon e Number [facility] [address] [place] [address] [facility] LABS Lipid panel reflex to direct LDL (03/19/2014 9:35 AM CDT) athologist Signature Cholesterol 129 <170 mg/dL [facility] Comment: LDL Cholesterol is the primary guide to therapy. The NCEP recommends further evaluation of: patients with cholesterol greater than 200 mg/dL if additional risk facto rs are present, cholesterol greater than 240 mg/dL, triglycerides greater than 1 50 mg/dL, or HDL less than 40 mg/dL. Triglycerides 50 0 - 150 mg/dL [facility] HDL Cholesterol 66 >45 mg/dL [facility] LDL Cholesterol Calculated 53 0 - 129 mg/dL [facility] Comment: LDL Cholesterol is the primary guide to therapy: LDL-cholesterol goal in high risk patients is <100 mg/dL and in very high risk patients is <70 mg/dL. VLDL-Cholesterol 10 0 - 30 mg/dL [facility] Cholesterol/HDL Ratio 2.0 0.0 - 5.0 [facility] Specimen Anatomical Collection Method Collection Time Receive d Time (Source) Location / / Volume Laterality Blood specimen 03/19/2014 9:35 AM 014 9:40 (specimen) CDT AM CDT Zohaib Bhandari MD LAB - BLOOD ORDERABLES Performing Organization Address City/State/ZIP Code Phon e Number [facility] [place] [address] [place] [address] [facility] [address], [place] [address] CBC with platelets differential (03/19/2014 9:35 AM CDT) [facility] gist Method Time Signature WBC 5.2 4.0 - [facility] 11.0 [facility] 10e9/L [place] RBC Count 3.92 3.7 - 5.3 [facility] 10e12/L [facility] Hemoglobin 11.8 11.7 - [facility] 15.7 g/dL [facility] Hematocrit 35.7 35.0 - [facility] 47.0 % [facility] MCV 91 77 - 100 [facility] MCH 30.1 26.5 - [facility] 33.0 pg [facility] MCHC 33.1 31.5 - [facility] 36.5 g/dL [facility] RDW 11.6 10.0 - [facility] 15.0 % [facility] Platelet Count 270 150 - 450 [facility] 10e9/L [facility] Diff Method Automated [facility] % Neutrophils 47.1 % [facility] % Lymphocytes 41.6 % [facility] % Monocytes 7.0 % [facility] % Eosinophils 3.7 % [facility] % Basophils 0.6 % [facility] Absolute 2.4 1.3 - 7.0 [facility] Neutrophil 10e9/L [facility] Absolute 2.2 1.0 - 5.8 [facility] Lymphocytes 10e9/L [facility] Absolute 0.4 0.0 - 1.3 [facility] Monocytes 10e9/L [facility] Absolute 0.2 0.0 - 0.7 [facility] Eosinophils 10e9/L [facility] Absolute 0.0 0.0 - 0.2 [facility] Basophils 10e9/L [facility] Specimen Anatomical Collection Method Collection Time Receive d Time (Source) Location / / Volume Laterality Blood specimen 03/19/2014 9:35 AM 014 9:40 (specimen) CDT AM CDT Zohaib Bhandari MD LAB - BLOOD ORDERABLES Performing Organization Address City/State/ZIP Code Phon e Number [facility] [address] [place], [place] [address] [address] documented in this encounter Visit Diagnoses Diagnosis Vitamin D deficiency - Primary Unspecified vitamin D deficiency Dietary surveillance and counseling Allergic state, initial encounter documented in this encounter Care Teams Grinder Relationship Specialty Start Date End Date Caterina Elkins MD PCP - General Pediatrics 03/10/13 [address] [place] [address] documented as of this encounter
--- OUTSIDE RECORDS SUMMARY | 2022-04-02 10:47 | XMS_ITS | Encounter Summary ---
:1997 Author Organization [place] Address [address] [place] [address] Care Team Providers Name Role Phone Doctor, Juan LEIJA Primary Care Provider Unavailable Encounter Details Date Type Department Care Team Description 11/14/2002 Abstract [facility] inletha Enamorado, Marialuisa [address] [place] [address] Social History Tobacco Use [...] on filedocumented in this encounter Care Teams Event Planner Relationship Specialty Start Date End Date DoctorJuan MD PCP - General 09/08/01 03/09/13 documented as of this encounter
--- OUTSIDE RECORDS SUMMARY | 2022-04-02 10:47 | XMS_ITS | Encounter Summary ---
:1995 Author Organization [place] Address [address] [place] [address] Care Team Providers Name Role Phone DoctorJuan MD Primary Care Provider Unavailable Reason for Visit Reason Comments Derm Problem Encounter Details Date Type Department Care Team Description 08/06/2002 Office Visit [facility] SKIN DISOR DERS [facility] MD [place] (Primary Dx) [place] [address] [place] [phone] Social History Tobacco Use Types Packs/Day Years Used Date Never Assessed Sex Assigned at Date Recorded Not on file documented as of this encounter Last Filed Vital Signs Vital Sign Reading Time Taken Comments Blood Pressure - - Pulse - - Temperature 36.6 ??C (97.9 ??F) 08/06/2002 3:00 PM PROJECT STRUCTURAL ENGINEER Respiratory Rate - - Oxygen Saturation - - Inhaled Oxygen Concentration - - Weight 22.7 kg (50 lb) 08/06/2002 3:00 PM PROJECT STRUCTURAL ENGINEER Height - - Body Mass Index - [...] ry documented in this encounter Care Teams Investor Relations Manager Relationship Specialty Start Date End Date Juan Dan MD PCP - General 09/08/01 03/09/13 documented as of this encounter
--- OUTSIDE RECORDS SUMMARY | 2022-04-02 10:47 | XMS_ITS | Encounter Summary ---
:1995 Author Organization [place] Address [address] [place] [address]. [place] [address] Care Team Providers Name Role Phone Caterina Elkins MD Primary Care Provider [phone] Encounter Details Date Type Department Care Team Description 05/05/2020 Medical Correspondence [facility] Scan, Critical access hospital Info Mgmt Non-Provider POST-AMADEO Srvcs DEPRESSION SCALE [address] [place] [address] [place] [address] WELL-CHILD VISITS [phone] Social History Tobacco Use Types Packs/Day Years [...] on filedocumented in this encounter Care Teams Time Cycle Operator Relationship Specialty Start Date End Date Caterina Elkins MD PCP - General Pediatrics 03/10/13 [address] [id number] documented as of this encounter
--- OUTSIDE RECORDS SUMMARY | 2022-04-02 10:47 | XMS_ITS | Encounter Summary ---
:1995 Author Organization [place] Address [address] [place] [address] Care Team Providers Name Role Phone Doctor, None MD Primary Care Provider Unavailable Reason for Referral - Closed Specialty Diagnoses / Procedures Referred By Contact Refer red To Contact Diagnoses Routine or child health check Surekha Garrido MD [facility] [address] [place] [address] 40 4 Referral ID Status Reason Start Date Expiration Date Visits Requ ested Visits Authorized [id number] Closed 03/25/2004 07/24/2011 1 1 Reason for Visit Reason Comments Well Child Encounter Details Date Type Department Care Team Description 03/25/2004 Office Visit [facility] Surekha Garrido CHILD HEALTH EXAM (Primary Dx); Clinic Héctor Blandon MD MYOPIA 303 [facility] [place] [address] [address] [facility] [address] [place], [place] [phone] (Wo rk) Social History Tobacco Use [...] 03/25/2004 2:45 PM CD T Growth Chart: [facility] (Girls, 2-20 Years) documented in this [...] are no concerns. No recent social changes/stressors. [place] Prescreen: Not applicable. Lead Risk Questionaire: Not [...] Myopia documented in this encounter Care Teams Respiratory Services Manager Relationship Specialty Start Date End Date Doctor, None, PCP - General 09/08/01 03/09/13 documented as of this encounter
--- OUTSIDE RECORDS SUMMARY | 2022-04-02 10:47 | XMS_ITS | Clinical Summary ---
:1995 Author Organization [place] Address [address] [place] [address] Care Team Providers Name Role Phone Caterina Elkins MD Primary Care Provider [phone] Allergies No known active allergies Medications [...] mplete this topic 66 Years) Care Teams Personal Injury Paralegal Relationship Specialty Start Date End Date Caterina Elkins MD PCP - General Pediatrics 03/10/[address] [address]
--- OUTSIDE RECORDS SUMMARY | 2022-04-02 10:47 | XMS_ITS | Encounter Summary ---
:1995 Author Organization [place] Address [address] [place] [address] Care Team Providers Name Role Phone Doctor, Juan LEIJA Primary Care Provider Unavailable Reason for Visit Reason Comments immun. dates Encounter Details Date Type Department Care Team Description 04/11/2003 Telephone [facility] Yaakov balderrama, Surekha Blandon MD [facility] [address] [place] [phone] [address] [facility] [phone] [place] [address] (Wo rk) Social History Tobacco [...] PM >> CALL RECEIVED. Contact: kathy bedolla [phone] please check paper cht for transfered immun. dates. mom needs all dates. [facility] has kinder shots onlyplease call mom when done. cht requested. Vale Zamora LPN documented in this encounter Plan of Treatment Not on filedocumented as of this encounter Visit Diagnoses Not on filedocumented in this encounter Care Teams Packing Clerk Relationship Specialty Start Date End Date Doctor, Juan, PCP - General 09/08/01 03/09/13 documented as of this encounter
--- OUTSIDE RECORDS SUMMARY | 2022-04-02 10:47 | XMS_ITS | Encounter Summary ---
:1995 Author Organization [place] Address [address] [place] [address]. [place] [address] Care Team Providers Name Role Phone Doctor, None Primary Care Provider Unavailable Encounter Details Date Type Department Care Team Description 09/07/2010 Office Visit-[facility] Eye [facility] - [facility] [address] [place] [address] [place], [place] [facility] [address] [address] [place] [address] [phone] Social History Tobacco Use Types Packs/Day Years Used Date Never Smoker Alcohol Use Standard Drinks/Week Comments No 0 (1 standard drink = 0.6 oz pure alcoho l) Sex Assigned at Date Recorded Not on file documented as of this encounter Progress Notes Nirali García - 09/07/2010 9:00 AM CST Ladle Puller: Nirali García Status: Final - Signature Encounter: 07 Sep 2010 Type: EYE Letter September 15, 2010 Jax Solomon MD [address], [address] [place] [address] RE: Sonia Allen MR#: [id number] : [address] Solomon: I had the pleasure of seeing Sonia Allen in Pediatric Ophthalmology Clinic at [facility] [place] on September 07, 2010. Sonia is a [...] to contact me. Sincerely, Nirali García M.D. Automotive Service Advisor Department of Pediatric Ophthalmology and Adult Strabismus JA:larry Job Number: [id number] Electronically signed by:Nirali García M.D. Sep 18 2010 8:52AM POWERHOUSE LABORER RHOUSE LABORER documented in this encounter Plan of Treatment Not on filedocumented as of this encounter Visit Diagnoses Not on filedocumented in this encounter Care Teams Technical Trainer Relationship Specialty Start Date End Date Doctor, MD Juan PCP - General 09/08/01 03/09/13 documented as of this encounter
--- OUTSIDE RECORDS SUMMARY | 2022-04-02 10:47 | XMS_ITS | Encounter Summary ---
:1995 Author Organization [place] Address [address] [place] [address] Care Team Providers Name Role Phone Doctor, Juan LEIJA Primary Care Provider Unavailable Reason for Visit Reason Comments otitis media-acute right Right OM Encounter Details Date Type Department Care Team Description 09/14/2003 Abstract [facility] Urgent Lizzie Melgar PA-C Care [facility] [address] [facility] [address] [address] [place] [address] [phone] Social History Tobacco Use Types Packs/Day Years Used Date Never Assessed Sex Assigned at Date Recorded Not on file documented as of this encounter Progress Notes 09/14/2003 11:59 PM DOCUMENT EXAMINER Zithromax 200/5ml 1 1/2 qd x 3 25ml Motrin, Increase fluids THIS INFORMATION HAS BEEN ABSTRACTED FRO M THE URGENT CARE CHART documented in this encounter Plan of Treatment Not on filedocumented as of this encounter Visit Diagnoses Not on filedocumented in this encounter Care Teams Outreach Rep Relationship Specialty Start Date End Date Doctor, MD Juan PCP - General 09/08/01 03/09/13 documented as of this encounter
--- OUTSIDE RECORDS SUMMARY | 2022-04-02 10:47 | XMS_ITS | Encounter Summary ---
:1995 Author Organization [place] Address [address] [place] [address] Care Team Providers Name Role Phone Doctor, None Primary Care Provider Unavailable Reason for Visit Reason Comments Cough Encounter Details Date Type Department Care Team Description 07/14/2004 Office Visit [facility] Surekha Garrido ACUTE SINUSITIS NOS Clinic [place] MD Jamia (Primary Dx) 303 [facility] CLINIC AND SP CTR [place], [place] [address] [address] [place], [place] [phone] (Wo rk) Social History Tobacco Use Types Packs/Day Years Used Date Never Assessed Sex Assigned at Date Recorded Not on file documented as of this encounter Last Filed Vital Signs Vital Sign Reading Time Taken Comments Blood Pressure - - Pulse - - Temperature 36.1 ??C (97 ??F) 07/14/2004 11:13 AM CANCER CENTER DIRECTOR Respiratory Rate - - Oxygen Saturation - - Inhaled Oxygen Concentration - - Weight 29.5 kg (65 lb) 07/14/2004 11:13 AM CANCER CENTER DIRECTOR Height - - Body Mass Index - - documented in this encounter Progress Notes 07/14/2004 11:00 AM CANCER CENTER DIRECTOR Sonia Allen is a 9 year old [...] Primary documented in this encounter Care Teams Rubber Goods Assembler Relationship Specialty Start Date End Date Doctor, Juan, PCP - General 09/08/01 03/09/13 documented as of this encounter
--- OUTSIDE RECORDS SUMMARY | 2022-04-02 10:47 | XMS_ITS | Encounter Summary ---
:1995 Author Organization [place] Address [address] [place] [address] Care Team Providers Name Role Phone Doctor, None Primary Care Provider Unavailable Reason for Visit Reason Comments Well Child Encounter Details Date Type Department Care Team Description 04/05/2006 Office Visit [facility] Octavio Elkins CHILD HEALTH Clinic [place] MD Miriam EXAM (Primary Dx) [address] [place] [address] [place] [address] [place] [phone] (Wo rk) Social History Tobacco Use Types [...] since last physical Language(s) spoken at home: Jordanian 3rd grade ENVIRONMENTAL RISK ASSESSMENT Is your child around anyone who smokes? NO Booster seat/ seat belt? YES Bike/ sport helmet? YES TB exposure? NO Pets in the home? YES 8 fish 2 dogs 2 cats bird & hamster Guns/firearms in the home? NO Water source: Med.ly water CHICKEN POX HISTORY: Patient has had [...] (43.1kg) 91.48% of growth percentile based on vruatzi-usm-srl. 96.32% of growth percentile based on iuwhbf-mru-qdv. 94.49% of growth percentile based on BMI-for-age. [...] up to date See other orders in [facility] Referrals/Ongoing Specialty care: Yes, for eye exam, [...] changes in family history since last physical. [place] Prescreen: Not applicable. Lead Risk Questionaire: Not [...] rimary documented in this encounter Care Teams Programs Assistant Relationship Specialty Start Date End Date Doctor, Juan, PCP - General 09/08/01 03/09/13 documented as of this encounter
--- OUTSIDE RECORDS SUMMARY | 2022-04-02 10:47 | XMS_ITS | Encounter Summary ---
:1995 Author Organization [place] Address [address] [place] [address] Care Team Providers Name Role Phone Caterina Elkins MD Primary Care Provider [phone] Reason for Visit Reason Comments Imm/Inj 3rd HPV and Menactra Encounter Details Date Type Department Care Team Description 07/19/2013 Allied Health/Nurse [facility] Imm /Inj (3rd HPV and Visit Clinic [place] Menact) [address] [place] [address] Social History Tobacco Use Types [...] diseases documented in this encounter Care Teams Drafter Electrical Relationship Specialty Start Date End Date Caterina Elkins MD PCP - General Pediatrics 03/10/13 [address] [place] [address] documented as of this encounter
--- OUTSIDE RECORDS SUMMARY | 2022-04-02 10:47 | XMS_ITS | Encounter Summary ---
:1995 Author Organization [place] Address [address] [place] [address] Care Team Providers Name Role Phone Doctor, None Primary Care Provider Unavailable Reason for Visit Reason Comments Derm Problem Encounter Details Date Type Department Care Team Description 03/23/2004 Office Visit [facility] Surekha Garrido [facility] Clinic Kerrick MD Jamia (Primary Dx) 303 [facility] AND SP CTR [place], [place] [address] [facility] [address] [place], [place] [phone] (Wo rk) Social History Tobacco Use [...] of itching, noticed it yesterday. Lelia Johnson CHEMIST ASSISTANT documented in this encounter Plan of Treatment Not on filedocumented as of this encounter Procedures Procedure Name Priority Date/Time Associated Diagnosis Comme nts HCL CULTURE, Routine 03/23/2004 2:29 PM Skin Disorders Nec Res ults for this FUNGUS, CDT procedure are i n SKIN,HAIR,NAIL the results section. documented in this encounter Results FUNGUS CULTURE, SKIN,HAIR,NAIL (03/23/2004 2:29 PM CDT) [facility] Method Time Signature Specimen Skin [facility] Description [facility] Culture Micro No growth [facility] after 28 UNIVERSITY days [facility] Report status FINAL [facility] [id number] [facility] Specimen Anatomical Collection Method Collection Time Receive d Time (Source) Location / / Volume Laterality SPECIMEN FROM SKIN 03/23/2004 2:29 PM 2:34 / Unknown CDT PM CDT Surekha Garrido MD LABORATORY Performing Organization Address City/State/ZIP Code Phon e Number [facility] [address] [place] [address] [facility] documented in this encounter Visit Diagnoses Diagnosis Other specified disorder of skin - Prima ry documented in this encounter Care Teams Cold Rolling Coordinator Relationship Specialty Start Date End Date Doctor, None, PCP - General 09/08/01 03/09/13 documented as of this encounter
--- OUTSIDE RECORDS SUMMARY | 2022-04-02 10:47 | XMS_ITS | Encounter Summary ---
:1995 Author Organization [place] Address [address] [place] [address] Care Team Providers Name Role Phone Caterina Elkins MD Primary Care Provider [phone] Reason for Visit Reason Onset Date Comments Orders 03/13/2014 LAB ORDERS Encounter Details Date Type Department Care Team Description 03/13/2014 Telephone [facility] Karyna Bhandari Order s (LAB ORDERS) Clinic [place] MD [facility] [address] [place], [place] [address] [phone] Social History Tobacco Use Types Packs/Day Years Used Date Never Smoker Alcohol Use Standard Drinks/Week Comments No 0 (1 standard drink = 0.6 oz pure alcoho l) Sex Assigned at Date Recorded Not on file documented as of this encounter Plan of Treatment Not on filedocumented as of this encounter Visit Diagnoses Not on filedocumented in this encounter Care Teams Department Editor Relationship Specialty Start Date End Date Caterina Elkins MD PCP - General Pediatrics 03/10/13 [address] [place] [address] documented as of this encounter
--- OUTSIDE RECORDS SUMMARY | 2022-04-02 10:47 | XMS_ITS | Encounter Summary ---
:1995 Author Organization [place] Address [address] [place] [address] Care Team Providers Name Role Phone Doctor, None MD Primary Care Provider Unavailable Reason for Referral - Closed Specialty Diagnoses / Procedures Referred By Contact Refer red To Contact Diagnoses Myopia Surekha Garrido MD [facility] [address] [place], [place] [address] Referral ID Status Reason Start Date Expiration Date Visits Requ ested Visits Authorized [id number] Closed 07/09/2003 07/24/2011 1 1 OMINIUM PROPERTY MANAGER Reason for Visit Reason Comments Other needs eyes and ears checked Encounter Details Date Type Department Care Team Description 07/09/2003 [facility] CHILD HEALTH EX[facility] (Primary Dx); Clinic Héctor Blandon MD MYOPIA 303 [facility] AND SP CTR [place] [address] [address] [facility] [address] [place], [place] [phone] [address] (Wo rk) Social History Tobacco Use Types Packs/Day Years Used Date Never Assessed Sex Assigned at Date Recorded Not on file documented as of this encounter Last Filed Vital Signs Vital Sign Reading Time Taken Comments Blood Pressure 92/50 07/09/2003 2:15 PM CONDOMINIUM PROPERTY MANAGER Pulse - - Temperature 36.4 ??C (97.6 ??F) 07/09/2003 2:15 PM CONDOMINIUM PROPERTY MANAGER Respiratory Rate - - Oxygen Saturation - - Inhaled Oxygen Concentration - - Weight 26.8 kg (59 lb) 07/09/2003 2:15 PM CONDOMINIUM PROPERTY MANAGER Height 123.2 cm (4' 0.5) 07/09/2003 2:15 PM CONDOMINIUM PROPERTY MANAGER Body Mass Index 17.63 07/09/2003 2:15 PM CONDOMINIUM PROPERTY MANAGER Body Mass Index Percentile 88.69 % 07/09/2003 2:15 PM CS T Growth Chart: [facility] (Girls, 2-20 Years) documented in this encounter [...] Myopia documented in this encounter Care Teams Ramp Service Agent Relationship Specialty Start Date End Date Doctor, None, PCP - General 09/08/01 03/09/13 documented as of this encounter
[2022-04-07 12:55] LABS: Strep B DNA Probe POSITIVE (Negative)
== END 2022-04-02 09:44 | disposition home or self-care (01) ==
LOC: NFLDREF 09:44
PROVIDERS: PCP Physician Assistant Medical; Visit Provider Obstetrics & Gynecology
DX: Z34.93 Encounter for supervision of normal pregnancy, unspecified, third trimester (principal); Z3A.36 36 weeks gestation of pregnancy
CPT/HCPCS: 76816; 87081; 87186; 87653

== ENCOUNTER 2022-04-27 08:00 | Inpatient (IN) | payer OTHER, SELFPAY ==
[2022-04-27] VITALS (68 sets, daily range): BP systolic 103–135; BP diastolic 50–82; PULSE 56–84; RESP 16; TEMP 36.4–36.9; O2SAT 93–100
--- OUTSIDE RECORDS SUMMARY | 2022-04-27 06:57 | XMS_ITS | Encounter Summary ---
:1995 Author Organization [place] Address [address] [place] [address]. [place] [address] Care Team Providers Name Role Phone Caterina Elkins MD Primary Care Provider Encounter Details Date Type Department Care Team Description 05/29/2020 Medical Correspondence [facility], [facility] Info Mgmt Non-Provider POST-AMADEO Srvcs DEPRESSION SCALE [address] [place] [address] [place] [address] WELL-CHILD VISITS [phone] Social History Tobacco Use Types Packs/Day Years [...] on filedocumented in this encounter Care Teams Corrugator Supervisor Relationship Specialty Start Date End Date Caterina Elkins MD PCP - General Pediatrics 03/10/13 [address] [address] documented as of this encounter
--- OUTSIDE RECORDS SUMMARY | 2022-04-27 06:57 | XMS_ITS | Clinical Summary ---
:1995 Author Organization [place] Address [address] [place] [address] Care Team Providers Name Role Phone Caterina Elkins MD Primary Care Provider [phone] Allergies No known active allergies Medications [...] mplete this topic 66 Years) Care Teams Audio Recording Engineer Relationship Specialty Start Date End Date Caterina Elkins MD PCP - General Pediatrics 03/10/13 [address] PAT[address] [address]
--- OUTSIDE RECORDS SUMMARY | 2022-04-27 06:57 | XMS_ITS | Encounter Summary ---
:1995 Author Organization [place] Address [facility] [place] [address] Care Team Providers Name Role Phone Caterina Elkins MD Primary Care Provider [phone] Encounter Details Date Type Department Care Team Description 10/02/2020 Medical Correspondence [facility] Scan, [facility] Info Mgmt Non-Provider POST- Srvcs DEPRESSION SCALE [address] [place] [address] [place] [address] WELL-CHILD VISITS [phone] Social History Tobacco Use Types Packs/Day Years [...] on filedocumented in this encounter Care Teams Nursing Unit Clerk Relationship Specialty Start Date End Date Caterina Elkins MD PCP - General Pediatrics 03/10/13 [address] [address] documented as of this encounter
--- OUTSIDE RECORDS SUMMARY | 2022-04-27 06:57 | XMS_ITS | Encounter Summary ---
:1995 Author Organization [place] Address [address] [place] [address]. [place] [address] Care Team Providers Name Role Phone Caterina Elkins MD Primary Care Provider [phone] Encounter Details Date Type Department Care Team Description 05/05/2020 Medical Correspondence [facility] Scan, [facility] Info Mgmt Non-Provider POST-AMADEO Srvcs DEPRESSION SCALE [address] [place] [address] [place] [address] WELL-CHILD VISITS [phone] Social History Tobacco Use Types Packs/Day Years [...] on filedocumented in this encounter Care Teams Home Health Care Social Worker Relationship Specialty Start Date End Date Caterina Elkins MD PCP - General Pediatrics 03/10/13 [address] [address] documented as of this encounter
--- OUTSIDE RECORDS SUMMARY | 2022-04-27 06:57 | XMS_ITS | Encounter Summary ---
:1995 Author Organization [place] Address [facility] [place] [address] Care Team Providers Name Role Phone Caterina Elkins MD Primary Care Provider [phone] Encounter Details Date Type Department Care Team Description 11/20/2020 Medical Correspondence [facility], [facility] Info Mgmt Non-Provider POST- Srvcs DEPRESSION SCALE [address] [place] [address] [place] [address] WELL-CHILD VISITS [phone] Social History Tobacco Use Types Packs/Day Years [...] on filedocumented in this encounter Care Teams Double Bass Player Relationship Specialty Start Date End Date Caterina Elkins MD PCP - General Pediatrics 03/10/13 [address] [address] documented as of this encounter
--- OUTSIDE RECORDS SUMMARY | 2022-04-27 06:58 | XMS_ITS | Encounter Summary ---
:1995 Author Organization [place] Address [address] [place] [address] Care Team Providers Name Role Phone Doctor, Juan LEIJA Primary Care Provider Unavailable Reason for Visit Reason Comments immun. dates Encounter Details Date Type Department Care Team Description 04/11/2003 Telephone [facility] Yaakov balderrama, Surekha Blandon MD [facility] [address] CLINIC [place] [address] [address] [facility] [phone] [place] [address] (Wo rk) Social History Tobacco [...] PM >> CALL RECEIVED. Contact: kathy bedolla [phone] please check paper cht for transfered immun. dates. mom needs all dates. [facility] has kinder shots onlyplease call mom when done. cht requested. Vale Zamora LPN documented in this encounter Plan of Treatment Not on filedocumented as of this encounter Visit Diagnoses Not on filedocumented in this encounter Care Teams Degreasing Solution Mixer Relationship Specialty Start Date End Date Doctor, Juan, PCP - General 09/08/01 03/09/13 documented as of this encounter
--- OUTSIDE RECORDS SUMMARY | 2022-04-27 06:58 | XMS_ITS | Encounter Summary ---
:1995 Author Organization [place] Address [address] [place] [address] Care Team Providers Name Role Phone Caterina Elkins MD Primary Care Provider [phone] Reason for Visit Reason Onset Date Comments Orders 03/13/2014 LAB ORDERS Encounter Details Date Type Department Care Team Description 03/13/2014 Telephone [facility] Karyna Bhandari Order s (LAB ORDERS) Clinic [place] MD [facility] [address] [place], [place] [address] [phone] Social History Tobacco Use Types Packs/Day Years Used Date Never Smoker Alcohol Use Standard Drinks/Week Comments No 0 (1 standard drink = 0.6 oz pure alcoho l) Sex Assigned at Date Recorded Not on file documented as of this encounter Plan of Treatment Not on filedocumented as of this encounter Visit Diagnoses Not on filedocumented in this encounter Care Teams Mandrel Press Hand Relationship Specialty Start Date End Date Caterina Elkins MD PCP - General Pediatrics 03/10/13 [address] [place] [address] documented as of this encounter
--- OUTSIDE RECORDS SUMMARY | 2022-04-27 06:58 | XMS_ITS | Encounter Summary ---
:1995 Author Organization [place] Address [address] [place] [address] Care Team Providers Name Role Phone Doctor, None MD Primary Care Provider Unavailable Reason for Referral - Closed Specialty Diagnoses / Procedures Referred By Contact Refer red To Contact Diagnoses Myopia Surekha Garrido MD [facility] AND SP CTR [address] [place], [place] [address] Referral ID Status Reason Start Date Expiration Date Visits Requ ested Visits Authorized [id number] Closed 07/09/2003 07/24/2011 1 1 ICAL TECHNICIAN Reason for Visit Reason Comments Other needs eyes and ears checked Encounter Details Date Type Department Care Team Description 07/09/2003 [facility] (Primary Dx); Clinic Héctor Blandon MD MYOPIA 303 [facility] AND SP CTR [place] [address] [address] [facility] [address] [place], [place] [phone] [address] (Wo rk) Social History Tobacco Use Types Packs/Day Years Used Date Never Assessed Sex Assigned at Date Recorded Not on file documented as of this encounter Last Filed Vital Signs Vital Sign Reading Time Taken Comments Blood Pressure 92/50 07/09/2003 2:15 PM SURGICAL TECHNICIAN Pulse - - Temperature 36.4 ??C (97.6 ??F) 07/09/2003 2:15 PM SURGICAL TECHNICIAN Respiratory Rate - - Oxygen Saturation - - Inhaled Oxygen Concentration - - Weight 26.8 kg (59 lb) 07/09/2003 2:15 PM SURGICAL TECHNICIAN Height 123.2 cm (4' 0.5) 07/09/2003 2:15 PM SURGICAL TECHNICIAN Body Mass Index 17.63 07/09/2003 2:15 PM SURGICAL TECHNICIAN Body Mass Index Percentile 88.69 % 07/09/2003 2:15 PM CS T Growth Chart: [facility] (Girls, 2-20 Years) documented in this encounter [...] Myopia documented in this encounter Care Teams Manager Of Financial Reporting Relationship Specialty Start Date End Date Doctor, None, PCP - General 09/08/01 03/09/13 documented as of this encounter
--- OUTSIDE RECORDS SUMMARY | 2022-04-27 06:58 | XMS_ITS | Encounter Summary ---
:1995 Author Organization [place] Address [address] [place] [address] Care Team Providers Name Role Phone Doctor, None Primary Care Provider Unavailable Reason for Visit Reason Comments Cough Encounter Details Date Type Department Care Team Description 07/14/2004 Office Visit [facility] Surekha Garrido ACUTE SINUSITIS NOS [facility] [place] MD Jamia (Primary Dx) [address] [facility] CLINIC AND SP CTR [place], [place] [address] [address] [place], [place] [phone] (Wo rk) Social History Tobacco Use Types Packs/Day Years Used Date Never Assessed Sex Assigned at Date Recorded Not on file documented as of this encounter Last Filed Vital Signs Vital Sign Reading Time Taken Comments Blood Pressure - - Pulse - - Temperature 36.1 ??C (97 ??F) 07/14/2004 11:13 AM POP SINGER Respiratory Rate - - Oxygen Saturation - - Inhaled Oxygen Concentration - - Weight 29.5 kg (65 lb) 07/14/2004 11:13 AM POP SINGER Height - - Body Mass Index - - documented in this encounter Progress Notes 07/14/2004 11:00 AM POP SINGER Sonia Allen is a 9 year old [...] Primary documented in this encounter Care Teams Copy And Print Associate Relationship Specialty Start Date End Date Doctor, Juan, PCP - General 09/08/01 03/09/13 documented as of this encounter
--- OUTSIDE RECORDS SUMMARY | 2022-04-27 06:58 | XMS_ITS | Encounter Summary ---
:1997 Author Organization [facility] Address [address] [place] [address] Care Team Providers Name Role Phone Caterina Elkins MD Primary Care Provider [phone] Encounter Details Date Type Department Care Team Description 03/19/2014 Orders Only [facility] Vit evans D deficiency (Primary Dx); [facility] Routine or child heal th check; [address] Dietary surveillance and cou nseling; [place] [address] Allergic state, initial enco unter [phone] Social History Tobacco Use Types Packs/Day Years [...] Component Value Ref Test Analysis Performed At [facility] gist Range Method Time Signature IGE [...] LAB - BLOOD ORDERABLES Performing Organization Address [facility] Phon e Number [address] LABS (ABNORMAL) Vitamin D Deficiency (03/19/2014 9:35 AM CDT) athologist Signature Vitamin D 19 (L) 30 - 75 [facility] Deficiency ug/L [facility] LABS Comment: Season, race, dietary intake, and treatm ent affect the concentration of 34-gywmzmh-Wvvnvrm D. Values may decrea se during winter [...] questions, pl ease contact the laboratory at [phone]. Specimen Anatomical Collection Method Collection Time Receive d Time (Source) Location / / Volume Laterality Blood specimen 03/19/2014 9:35 AM 014 9:40 (specimen) CDT AM CDT Zohaib Bhandari MD LAB - BLOOD ORDERABLES Performing Organization Address [facility] Phon e Number [address] LABS Comprehensive metabolic panel (03/19/2014 9:35 AM CDT) athologist Signature Sodium 138 133 - 144 [facility] mmol/L [facility] Potassium 3.6 3.4 - 5.3 [facility] mmol/L [facility] Chloride 105 96 - 110 [facility] mmol/L [facility] Carbon Dioxide 25 20 - 32 [facility] S mmol/L USK Anion Gap 8 6 - 17 [facility] mmol/L [facility] Glucose 88 70 - 99 [facility] mg/dL [facility]K Comment: Effective 02/20/2014, the reference range for this assay has changed to reflect new instrumentation/methodology. Urea Nitrogen 8 7 - 19 mg/dL [facility] Comment: Effective 02/20/2014, the reference range for this assay has changed to reflect new instrumentation/methodology. Creatinine 0.67 0.50 - 1.00 [facility] mg/dL [facility] GFR Estimate >90 >60 mL/min/1.7m2 [facility] Non GFR Calc US[facility] GFR Estimate If Black >90 >60 mL/min/1.7m2 [facility] GFR Calc [place] [place] Calcium 9.4 9.1 - 10.3 mg/dL [facility] Comment: Effective 02/20/2014, the reference range for this assay has changed to reflect new instrumentation/methodology. Bilirubin Total 0.7 0.2 - 1.3 mg/dL [facility] Albumin 4.2 3.9 - 5.1 g/dL [facility] S USK Protein Total 7.5 6.8 - 8.8 g/dL [facility] Alkaline Phosphatase 71 40 - 150 U/L [facility] ALT 11 0 - 50 U/L [facility] AST 7 0 - 35 U/L [facility] Specimen Anatomical Collection Method Collection Time Receive d Time (Source) Location / / Volume Laterality Blood specimen 03/19/2014 9:35 AM 014 9:40 (specimen) CDT AM CDT Zohaib Bhandari MD LAB - BLOOD ORDERABLES Performing Organization Address City/State/ZIP Code Phon e Number [facility] [address] [place] [address] [facility] [address] [place], [place] [address] TSH with free T4 reflex (03/19/2014 9:35 AM CDT) athologist Signature TSH 2.11 0.40 - 4.00 [facility] mU/L US[facility] Comment: Effective 02/20/2014, the reference range for this assay has changed to reflect new instrumentation/methodology. Specimen Anatomical Collection Method Collection Time Receive d Time (Source) Location / / Volume Laterality Blood specimen 03/19/2014 9:35 AM 014 9:40 (specimen) CDT AM CDT Zohaib Bhandari MD LAB - BLOOD ORDERABLES Performing Organization Address City/State/ZIP Code Phon e Number [facility] [address] [place] [address] [facility] [address] [place], [place] [address] HIV Antigen Antibody Combo (03/19/2014 9:35 AM CDT) [facility] gist Method Time Signature HIV Antigen Nonreactive [facility] Antibody HIV-1 p24 Ag & HIV-1/HIV-2 Ab Not Detected [facility] LABS Specimen Anatomical Collection Method Collection Time Receive d Time (Source) Location / / Volume Laterality Blood specimen 03/19/2014 9:35 AM 014 9:40 (specimen) CDT AM CDT Zohaib Bhandari MD LAB - BLOOD ORDERABLES Performing Organization Address City/State/ZIP Code Phon e Number [facility] [address] [place] [address] [facility] LABS Lipid panel reflex to direct LDL (03/19/2014 9:35 AM CDT) athologist Signature Cholesterol 129 <170 mg/dL [facility] Comment: LDL Cholesterol is the primary guide to therapy. The NCEP recommends further evaluation of: patients with cholesterol greater than 200 mg/dL if additional risk facto rs are present, cholesterol greater than 240 mg/dL, triglycerides greater than 1 50 mg/dL, or HDL less than 40 mg/dL. Triglycerides 50 0 - 150 mg/dL [facility] HDL Cholesterol 66 >45 mg/dL [facility] LDL Cholesterol Calculated 53 0 - 129 mg/dL [facility] Comment: LDL Cholesterol is the primary guide to therapy: LDL-cholesterol goal in high risk patients is <100 mg/dL and in very high risk patients is <70 mg/dL. VLDL-Cholesterol 10 0 - 30 mg/dL [facility] Cholesterol/HDL Ratio 2.0 0.0 - 5.0 [facility] Specimen Anatomical Collection Method Collection Time Receive d Time (Source) Location / / Volume Laterality Blood specimen 03/19/2014 9:35 AM 014 9:40 (specimen) CDT AM CDT Zohaib Bhandari MD LAB - BLOOD ORDERABLES Performing Organization Address City/State/ZIP Code Phon e Number [facility] [address] [place] [address] [facility] [address], [place] [address] CBC with platelets differential (03/19/2014 9:35 AM CDT) [facility] gist Method Time Signature WBC 5.2 4.0 - [facility] 11.0 [facility] 10e9/L [facility] RBC Count 3.92 3.7 - 5.3 [facility] 10e12/L [facility] Hemoglobin 11.8 11.7 - [facility] 15.7 g/dL [facility] Hematocrit 35.7 35.0 - [facility] 47.0 % [facility] MCV 91 77 - 100 [facility] MCH 30.1 26.5 - [facility] 33.0 pg [facility] MCHC 33.1 31.5 - [facility] 36.5 g/dL [facility] RDW 11.6 10.0 - [facility] 15.0 % [facility] Platelet Count 270 150 - 450 [facility] 10e9/L [facility] Diff Method Automated [facility] % Neutrophils 47.1 % [facility] % Lymphocytes 41.6 % [facility] % Monocytes 7.0 % [facility] % Eosinophils 3.7 % [facility] % Basophils 0.6 % [facility] Absolute 2.4 1.3 - 7.0 [facility] Neutrophil 10e9/L [facility] Absolute 2.2 1.0 - 5.8 [facility] Lymphocytes 10e9/L [facility] Absolute 0.4 0.0 - 1.3 [facility] Monocytes 10e9/L [facility] Absolute 0.2 0.0 - 0.7 [facility] Eosinophils 10e9/L [facility] Absolute 0.0 0.0 - 0.2 [facility] Basophils 10e9/L [facility] Specimen Anatomical Collection Method Collection Time Receive d Time (Source) Location / / Volume Laterality Blood specimen 03/19/2014 9:35 AM 014 9:40 (specimen) CDT AM CDT Zohaib Bhandari MD LAB - BLOOD ORDERABLES Performing Organization Address City/State/ZIP Code Phon e Number [facility] [address] [place], [place] [address] [address] documented in this encounter Visit Diagnoses Diagnosis Vitamin D deficiency - Primary Unspecified vitamin D deficiency Dietary surveillance and counseling Allergic state, initial encounter documented in this encounter Care Teams Boiler Tube Blower Relationship Specialty Start Date End Date Caterina Elkins MD PCP - General Pediatrics 03/10/13 [address] [place] [address] documented as of this encounter
--- OUTSIDE RECORDS SUMMARY | 2022-04-27 06:58 | XMS_ITS | Encounter Summary ---
:1995 Author Organization [facility] Address [address] [place] [address] Care Team Providers Name Role Phone Doctor, Juan LEIJA Primary Care Provider Unavailable Encounter Details Date Type Department Care Team Description 11/14/2002 Abstract [facility] inletha Enamorado, Marialuisa [address] [place] [address] Social History Tobacco Use [...] on filedocumented in this encounter Care Teams Welfare Visitor Relationship Specialty Start Date End Date DoctorJuan MD PCP - General 09/08/01 03/09/13 documented as of this encounter
--- OUTSIDE RECORDS SUMMARY | 2022-04-27 06:58 | XMS_ITS | Encounter Summary ---
:1995 Author Organization [facility] Address [address] [place] [address]. [place] [address] Care Team Providers Name Role Phone Doctor, None Primary Care Provider Unavailable Encounter Details Date Type Department Care Team Description 09/07/2010 Office Visit-[facility] [address] [place] [address] 516 [place], [place] 9[facility] [address] [place] [address] [phone] Social History Tobacco Use Types Packs/Day Years Used Date Never Smoker Alcohol Use Standard Drinks/Week Comments No 0 (1 standard drink = 0.6 oz pure alcoho l) Sex Assigned at Date Recorded Not on file documented as of this encounter Progress Notes Niarli García - 09/07/2010 9:00 AM CST Windows Infrastructure Engineer: Nirali García Status: Final - Signature Encounter: 07 Sep 2010 Type: EYE Letter September 15, 2010 Jax Solomon MD [address], [address] [place] [address] RE: Sonia Allen MR#: [id number] : [address] Solomon: I had the pleasure of seeing Sonia Allen in Pediatric Ophthalmology Clinic at [facility] [place] on September 07, 2010. Sonia is a [...] to contact me. Sincerely, Nirali García M.D. Jack Spooler Tender Department of Pediatric Ophthalmology and Adult Strabismus JA:larry Job Number: [id number] Electronically signed by:Nirali García M.D. Sep 18 2010 8:52AM PLANNING SPECIALIST NING SPECIALIST documented in this encounter Plan of Treatment Not on filedocumented as of this encounter Visit Diagnoses Not on filedocumented in this encounter Care Teams Automotive Vehicle Inspector Relationship Specialty Start Date End Date Doctor, MD Juan PCP - General 09/08/01 03/09/13 documented as of this encounter
--- OUTSIDE RECORDS SUMMARY | 2022-04-27 06:58 | XMS_ITS | Encounter Summary ---
:1995 Author Organization [place] Address [address] [place] [address] Care Team Providers Name Role Phone Caterina Elkins MD Primary Care Provider [phone] Reason for Visit Reason Comments Well Child 18 year px. Encounter Details Date Type Department Care Team Description 03/13/2014 Office Visit [facility] Karyna Bhandari or child health check (Primary Dx); Clinic [place] MD Linda Allergic state, initial encounter; [address] [place] [address] Dietary surve illance and counseling [facility] [address] [place] [address] [phone] Social History Tobacco Use Types Packs/Day Years [...] this encounter Patient Instructions Patient InstructionsFaby Celeste, FIRMWARE ENGINEER - 03/13/2014 9:35 AM CDT Preventive Care at the 15 - 18 Year Visit Growth Percentiles & Measurements Weight: 177 lbs 0 oz / 80.29 kg / 95%ile based on [facility] 2-20 Years kylmfw-sya-iqd data using vitals from 03/13/2014. Length: 5' 9 / 175.3 cm 97%ile based on [facility] 2-20 Years qmbqlvh-egw-ytx data using vitals from 03/13/2014. BMI: Body mass index is 26.13 kg/(m^2). 89%ile based on [facility] 2-20 Years BMI-for-age data using vitalsfrom 03/13/2014. [...] Never get in a car if the waste collection driver has been drinking or using drugs. [...] and 2 sisters Language(s) spoken at home: Thai Recent family changes/social stressors: none noted HEALTH [...] Water source: city water SPORTS QUESTIONNAIRE: School: [employer] Grade: 10 Sports: Cheerleading Sports Questionnaire sent to scan, see letter. HNSAFETY Car seat belt always worn: Yes ELECTRONIC MEDIA < 2 hours/ day EDUCATION School: [employer] Grade: 10 School performance / [...] 03/06/2014 97%ile based on CDC 2-20 Years evhnwjd-sko-jjs data using vitals from 03/13/2014. 95%ile based on CDC 2-20 Years zluhpv-nky-ttz data using vitals from 03/13/2014. 89%ile based [...] No See other orders in [facility]. Dental visit recommended: Yes Vision: abnormal--did not have her glasses Hearing: normal Cleared for sports: Yes BMI at 89%ile based on CDC 2-20 Years BMI-for-age data using vitals from 03/13/2014. OBESITY ACTION PLAN Exercise Counseling Performed Nutrition Counseling Performed 5210 FOLLOW-UP: in 1 year for a Preventive Care visit Karyna Bhandari MD, MD [facility] documented in this encounter Nursing Notes Faby [...] encounter documented in this encounter Care Teams Interactive Media Specialist Relationship Specialty Start Date End Date Caterina Elkins MD PCP - General Pediatrics 03/10/13 [address] [address] documented as of this encounter
--- OUTSIDE RECORDS SUMMARY | 2022-04-27 06:58 | XMS_ITS | Encounter Summary ---
:1995 Author Organization [facility] Address [address] [place] [address] Care Team Providers Name Role Phone DoctorJuan MD Primary Care Provider Unavailable Reason for Visit Reason Comments Derm Problem Encounter Details Date Type Department Care Team Description 08/06/2002 Office Visit [facility] SKIN DIS[facility] MD Tirso (Primary Dx) [place] [address] [place] [phone] Social History Tobacco Use Types Packs/Day Years Used Date Never Assessed Sex Assigned at Date Recorded Not on file documented as of this encounter Last Filed Vital Signs Vital Sign Reading Time Taken Comments Blood Pressure - - Pulse - - Temperature 36.6 ??C (97.9 ??F) 08/06/2002 3:00 PM [place] Respiratory Rate - - Oxygen Saturation - - Inhaled Oxygen Concentration - - Weight 22.7 kg (50 lb) 08/06/2002 3:00 PM [place] Height - - Body Mass Index - [...] ry documented in this encounter Care Teams Compliance Tester Relationship Specialty Start Date End Date Juan Dan MD PCP - General 09/08/01 03/09/13 documented as of this encounter
--- OUTSIDE RECORDS SUMMARY | 2022-04-27 06:58 | XMS_ITS | Encounter Summary ---
:1995 Author Organization [place] Address [address] [place] [address] Care Team Providers Name Role Phone Doctor, None Primary Care Provider Unavailable Caterina Elkins MD Primary Care Provider [phone] Reason for Visit Reason Comments Well Child Encounter Details Date Type Department Care Team Description 02/22/2013 Office Visit [facility] Caterina Elkins infant or child health check (Primary Dx); Clinic Héctor Pineda MD Seasonal allergic rhinitis [address] [place] [address] [place] [address] [phone] (Wo rk) Social History Tobacco Use Types [...] Weight: 95.81%ile based on CDC 2-20 Years ymeddf-cyg-pqc data. Length: 97.58%ile based on CDC 2-20 Years cydhriy-clb-cjn data. BMI: 89.9%ile based on CDC 2-20 [...] your teen is old enough for a six horse hitch driver???s license, encourage safe driving. Teach your [...] this visit. Based on recommendations from the [place] Association of Pediatrics, at this visityour child [...] away. Next checkup at: PARENT NOTES: ?? [phone] [facility], [address] [place] [address], [place] [address]. All rights reserved. This information is not [...] since last physical Language(s) spoken at home: Nepali MNVFC does apply for the following reason: [facility] Care Program (MHCP) enrollee: [place] [facility] [place]), [facility], or a Prepaid Medical Assistance Program (PMAP) [...] 176 lb (79.833 kg) BMI 25.99 kg/m2 [facility] 02/13/2013 97.58%ile based on CDC 2-20 Years jagikkw-gwn-vot data. 95.81%ile based on CDC 2-20 Years xdshcm-pav-bmm data. 89.9%ile based on CDC 2-20 Years [...] activities EDUCATION / EMPLOYMENT Concerns: no School: [employer] Grade:9th MENTAL HEALTH Concerns: no MENSTRUAL HISTORY [...] unspecified documented in this encounter Care Teams Police District Switchboard Operator Relationship Specialty Start Date End Date Doctor, Juan, PCP - General 09/08/01 03/09/13 Caterina Elkins MD PCP - General Pediatrics 03/10/13 [place] [address] [address] documented as of this encounter
--- OUTSIDE RECORDS SUMMARY | 2022-04-27 06:58 | XMS_ITS | Encounter Summary ---
:1995 Author Organization [place] Address [address] [place] [address] Care Team Providers Name Role Phone Doctor, Juan LEIJA Primary Care Provider Unavailable Reason for Visit Reason Comments otitis media-acute right Right OM Encounter Details Date Type Department Care Team Description 09/14/2003 Abstract [facility] Lizzie Melgar PA-C Care [facility] [address] [facility] [address] [address] [place] [phone] Social History Tobacco Use Types Packs/Day Years Used Date Never Assessed Sex Assigned at Date Recorded Not on file documented as of this encounter Progress Notes 09/14/2003 11:59 PM HOME SCHOOL TEACHER Zithromax 200/5ml 1 1/2 qd x 3 25ml Motrin, Increase fluids THIS INFORMATION HAS BEEN ABSTRACTED FRO M THE URGENT CARE CHART documented in this encounter Plan of Treatment Not on filedocumented as of this encounter Visit Diagnoses Not on filedocumented in this encounter Care Teams Pe Manager Relationship Specialty Start Date End Date Doctor, MD Juan PCP - General 09/08/01 03/09/13 documented as of this encounter
--- OUTSIDE RECORDS SUMMARY | 2022-04-27 06:58 | XMS_ITS | Encounter Summary ---
:1995 Author Organization [facility] Address [address] [place] [address] Care Team Providers Name Role Phone Doctor, None Primary Care Provider Unavailable Reason for Visit Reason Comments Well Child Encounter Details Date Type Department Care Team Description 04/05/2006 Office Visit [facility] Octavio Elkins CHILD HEALTH Clinic [place] MD Miriam EXAM (Primary Dx) [address] [place] [address] [place] [phone] (Wo rk) Social History Tobacco Use Types [...] since last physical Language(s) spoken at home: Kuwaiti 3rd grade ENVIRONMENTAL RISK ASSESSMENT Is your child around anyone who smokes? NO Booster seat/ seat belt? YES Bike/ sport helmet? YES TB exposure? NO Pets in the home? YES 8 fish 2 dogs 2 cats bird & hamster Guns/firearms in the home? NO Water source: [employer] water CHICKEN POX HISTORY: Patient has had [...] (43.1kg) 91.48% of growth percentile based on qgtkqnc-vys-cnq. 96.32% of growth percentile based on bymffu-ciz-aqj. 94.49% of growth percentile based on BMI-for-age. [...] up to date See other orders in [facility] Referrals/Ongoing Specialty care: Yes, for eye [...] changes in family history since last physical. [place] Prescreen: Not applicable. Lead Risk Questionaire: Not [...] rimary documented in this encounter Care Teams Scaling Machine Operator Relationship Specialty Start Date End Date Doctor, Juan, PCP - General 09/08/01 03/09/13 documented as of this encounter
--- OUTSIDE RECORDS SUMMARY | 2022-04-27 06:58 | XMS_ITS | Encounter Summary ---
:1995 Author Organization [place] Address [address] [place] [address] Care Team Providers Name Role Phone Caterina Elkins MD Primary Care Provider [phone] Reason for Visit Reason Comments Imm/Inj 3rd HPV and Menactra Encounter Details Date Type Department Care Team Description 07/19/2013 Allied Health/Nurse [facility] Imm /Inj (3rd HPV and Visit [facility] [place] Menact) [address] [place] [address] Social History Tobacco Use Types [...] diseases documented in this encounter Care Teams Transformation Specialist Relationship Specialty Start Date End Date Caterina Elkins MD PCP - General Pediatrics 03/10/13 [address] [place] [address] documented as of this encounter
--- OUTSIDE RECORDS SUMMARY | 2022-04-27 06:58 | XMS_ITS | Encounter Summary ---
:1995 Author Organization [place] Address [address] [place] [address] Care Team Providers Name Role Phone Doctor, None MD Primary Care Provider Unavailable Reason for Referral - Closed Specialty Diagnoses / Procedures Referred By Contact Refer red To Contact Diagnoses Routine or child health check Surekha Garrido MD [facility] [address] [place] [address] Referral ID Status Reason Start Date Expiration Date Visits Requ ested Visits Authorized [id number] Closed 03/25/2004 07/24/2011 1 1 Reason for Visit Reason Comments Well Child Encounter Details Date Type Department Care Team Description 03/25/2004 Office Visit [facility] Surekha Garrido CHILD HEALTH EXAM (Primary Dx); Clinic Héctor Blandon MD MYOPIA 303 [facility] AND [facility] [place] [address] [address] [facility] [address] [place], [place] [phone] (Wo rk) Social History Tobacco Use [...] 03/25/2004 2:45 PM CD T [facility] (Girls, 2-20 Years) documented in this [...] are no concerns. No recent social changes/stressors. [place] Prescreen: Not applicable. Lead Risk Questionaire: Not [...] Myopia documented in this encounter Care Teams Outdoor Pursuits Instructor Relationship Specialty Start Date End Date Doctor, None, PCP - General 09/08/01 03/09/13 documented as of this encounter
--- OUTSIDE RECORDS SUMMARY | 2022-04-27 06:58 | XMS_ITS | Encounter Summary ---
:1995 Author Organization [facility] Address [address] [place] [address]. [place] [address] Care Team Providers Name Role Phone Doctor, None MD Primary Care Provider Unavailable Reason for Referral Referral not Required - Closed Specialty Diagnoses / Procedures Referred By Contact Refer red To Contact Diagnoses Routine infant or child health check Jax Solomon MD [facility] [address] OPHTHALMOLOGY [facility] [address] [place] [address] [address] [place] [address] Phone: [phone] Fax: Referral ID Status Reason Start Date Expiration Date Visits Requ ested Visits Authorized [id number] Closed 07/11/2010 07/11/2010 1 1 IRONER HAND Reason for Visit Reason Comments Physical Encounter Details Date Type Department Care Team Description [facility]/11[facility]2010 [facility] H[facility]ctor Bronson MD child health check [address] (Primary Dx) [place] [address] Social History Tobacco Use Types Packs/Day Years Used Date Never Smoker Alcohol Use Standard Drinks/Week Comments No 0 (1 standard drink = 0.6 oz pure alcoho l) Sex Assigned at Date Recorded Not on file documented as of this encounter Last Filed Vital Signs Vital Sign Reading Time Taken Comments Blood Pressure 108/62 07/11/2010 9:13 AM COAT IRONER HAND Pulse - - Temperature - - Respiratory Rate - - Oxygen Saturation - - Inhaled Oxygen Concentration - - Weight 75.3 kg (166 lb) 07/11/2010 9:13 AM COAT IRONER HAND Height 172.1 cm (5' 7.75) 07/11/2010 9:13 AM COAT IRONER HAND Body Mass Index 25.43 07/11/2010 9:13 AM COAT IRONER HAND Body Mass Index Percentile 93.30 % 07/11/2010 [...] since last physical Language(s) spoken at home: Indian ENVIRONMENTAL RISK ASSESSMENT Is your child around anyone who smokes? NO Seat belt? YES Bike/sport helmet? YES TB exposure? NO Pets in the home? NO Guns/firearms in the home? NO Water source: Pica8 CHICKEN POX HISTORY: Patient has had chicken pox DEVELOPMENTAL/ Behavioral Screening form: Form not indicated at this visit. VISION see nursing notes HEARING see nursing notes REQUIRED VITAL SIGNS COMPLETED: yes BP 108/62 Ht 5' 7.75 (1.721 m) Wt 166 lb (75.297 kg) LMP 07/03/2010 98.02% of growth percentile based on [id number]. 97.48% of growth percentile based on [id number]. 93.28% of growth percentile based on BMI-for-age. [...] 6 months RTC: 1 year [facility] visit IRONER HAND documented in this encounter Nursing Notes 07/11/2010 [...] nts PEDIATRIC OPHTHALMOLOGY Routine 09/15/2010 Routine or SOLE RUFFER REFERRAL child health check HC SCREENING TEST, PURE Routine 07/11/2010 9:40 AM Routine inf ant or TONE, AIR ONLY COAT IRONER HAND child health check documented in this encounter Results OPHTHALMOLOGY PEDS REFERRAL (09/15/2010) Narrative This result has an attachment that is no t available. Jax Solomon MD REFERRAL documented in this encounter Visit Diagnoses Diagnosis Routine or child health check - P rimary documented in this encounter Care Teams Earth Boring Machine Operator Relationship Specialty Start Date End Date Doctor, None, PCP - General 09/08/01 03/09/13 documented as of this encounter
[2022-04-27 07:57] LABS: Amnisure Rom* Negative
[2022-04-27] MEDS: LACTATED RINGERS 1000 ML 1,000 ML 125 ML IV ×2 (08:36→15:48)
[2022-04-27] MEDS: CEFAZOLIN 2 GM in 0.9 % SODIUM CHLORIDE Mini-bag 100 ML IVPB (08:36)
[2022-04-27 09:14] LABS: Basophils Absolute Auto 0.01 K/uL (0.00-0.30); Basophils Percent Auto 0.1 % (0.0-3.0); Eosinophils Absolute Auto 0.01 K/uL (0.00-0.50); Eosinophils Percent Auto 0.1 % (0.0-7.0); Hematocrit 32.7 % (33.0-51.0); Immature Granulocytes Abs Auto 0.01 K/uL (0.00-0.30); Lymphocytes Percent Auto 17.6 % (20-44); Mean Corpuscular HGB Conc 34 gm/dL (32-36); Mean Corpuscular Hemoglobin 30 pg (26-34); Mean Corpuscular Volume 90 fL (80-100); Monocytes Percent Auto 4.5 % (0.0-11.0); Neutrophils Percent Auto 77.6 % (42.0-72.0); Platelet Count* 270 K/uL (140-440); RDW Coefficient of Variation % 12.7 % (11.5-15.5); Red Blood Count 3.65 m/uL (4.00-5.20)
[2022-04-27 09:30] LABS: Slide Review Reflex No
[2022-04-27 09:53] LABS: SARS PCR* Negative SARS-CoV-2 (Negative)
--- NOTE | 2022-04-27 10:45 | PM.OBHPLI ---
OB - H&P: HPI Labor/Induction History of Present Illness Date Seen: 04/27/22 Chief Complaint: The patient is a 27 year old 2 para 1001 at 40 1/7 weeks gestation by LMP, who presents with painful contractions, in labor. Patient with history of previous delivery desiring a VTOLAC. NST showing irregular uterine contractions and cervix found 4-5cm/75% effaced. NST category 2 with intermittent late decelerations. Chief complaint: maternity : 2 Para: 1 Narrative: Sonia Allen is a 27 year old female History of Present Dating criteria: based on LMP care: good care complications: other complications comment: Suspected macrosomia, obesity, history of x1 desiring VTOLAC Labs Narrative: Please see diagnostics GBS positive Meds Home Medications and Allergies Home Medications Medication Instructions Recorded Confirmed Type docosahexaenoic acid 200 mg 200 mg PO DAILY 02/05/22 04/27/22 History capsule ( DHA) ferrous sulfate 325 mg (65 mg 325 mg PO DAILY 02/05/22 04/27/22 History iron) tablet Allergies Allergy/AdvReac Type Severity Reaction Status Date / Time amoxicillin AdvReac Intermediate Verified 04/19/22 10:15 OB - H&P: Exam Physical Exam: Vital signs: Temp Pulse BP Pulse Ox 98.0 F 78 135/73 93 04/27/22 10:00 04/27/22 10:04 04/27/22 10:04 04/27/22 07:15 Narrative: Gen: AAO X3 Chest: CTA X 2, RRR Abd: Gravid, non tender Pelvic:4-5cm/75%/vertex OB - Results Labs Labs: Short CBC 04/27/22 Range/Units 08:26 WBC 10.20 (4.50-11.00) K/uL Hgb 11.0 L (12.0-16.0) gm/dL Hct 32.7 L (33.0-51.0) % Plt Count 270 (140-440) K/uL OB - Problem Based A/P Additional Plan (1) Patient desires vaginal after section (): Status: Acute Plan: Admit for continued monitoring, in labor, expectant management at the moment due to category 2 tracing, will try position changes, fluid bolus. GBS positive will start antibiotic prophylaxis right away (2) macrosomia: Status: Acute Plan: Expectant management (3) Obesity with body mass index (BMI) of 35.0 to 39.9 without comorbidity: Status: Acute Plan If delivery will plan adding prophylactic anticoagulation Delivery/Labor/Induction Plan Plan: expectant management
--- NOTE | 2022-04-27 10:53 | PM.OBPNL ---
Pain Control Date Seen: 04/27/22 Pain control: tolerating well Contractions Monitor mode: External Contraction pattern: Irregular Contraction intensity: Moderate Fetus (Single) status: Category lll Comments: Late decelerations after more than 50% of uterine contractions for more than 30 minutes despite positional changes and fluid bolus. Assessment and Plan Plan: Comments: Recommend at this time delivery due to distress. Discussed that she is still far from delivery and NST showing more frequent late decelerations. Discussed situation with patient and and they agree with proceeding with delivery at this time. Discussed how we perform a repeat delivery, discussed risks associated with surgery such as bleeding, infection, damage to nearby organs, blood clots. Discussed interventions to decreases risks such as prophylactic antibiotics. Will plan to collect cord blood gases and send placenta to pathology. Will proceed with urgent delivery. Anesthesia aware. Informed consent signed.
--- NOTE | 2022-04-27 12:26 | W.ANESCHARGE ---
Anesthesia Charges Start Date/Time Anesthesia Start Date: 04/27/22 Anesthesia Start Time: 10:45 Stop Date/Time Anesthesia Stop Date: 04/27/22 Anesthesia Stop Time: 12:25 Summary Emergency: Yes
--- NOTE | 2022-04-27 12:31 | P.OBPRC_ITS ---
Procedure Pre-op/Post-op diagnoses: Pre-Op/Post-Op Diagnoses Operation Date: 04/27/22 10:45 <No data on this case meets the specified criteria> Procedure Done: Global Procedure Details: Procedures Operation Date: 04/27/22 10:45 Actual Procedure Side Surgeon p Section Juana Johnson MD Estimated blood loss (mL): 675 Disposition: floor Anesthesia type: Spinal Complications: None Narrative: PREOPERATIVE DIAGNOSES: 1. Intrauterine at 40 1/7 weeks' gestation. 2. History of prior low transverse section x1, desired VTOLAC. 3. Category III heart rate tracing POSTOPERATIVE DIAGNOSES: 1. Intrauterine at 40 1/7 weeks' gestation. 2. History of prior low transverse section x1, desired VTOLAC. 3. Category III heart rate tracing NAME OF PROCEDURE: Repeat low transverse section. Lysis of adhesions. ANESTHESIA: Spinal. COMPLICATIONS: None. Quantitative BLOOD LOSS: 675 mL. DRAINS: Schaeffer to gravity. FINDINGS: Live-born female infant, cephalic presentation, Apgars 8 and 9 at 1 and 5 minutes respectively. weight 8 pounds 14 ounces. Normal appearing uterus, tubes, and ovaries. Dense adhesions between fascia, rectus muscles, omentum, anterior peritoneum. PROCEDURE: After obtaining informed consent, the patient was taken to the operating room where spinal anesthesia was obtained and found to be adequate. She was prepared and draped in the normal sterile fashion in the dorsal supine position with a leftward tilt. A Pfannenstiel skin incision was made with a scalpel along the line of the patient's previous Pfannenstiel scar. This incision was carried down to the underlying layer of fascia with the Bovie. The fascia was incised in the midline and the incision extended laterally. The superior and inferior aspects of the fascial incision were grasped with Rashaad clamps, elevated and the underlying rectus muscles dissected off sharply and with electrocautery. This dissection took an increased amount of time given the dense adhesions. The rectus muscles were then in the midline. The Beto O retractor was then placed into the incision. The lower uterine segment was then incised in a transverse fashion with the scalpel. Upon entry into the uterus, meconium stained amniotic fluid was noted. The uterine incision was extended cephalo caudally with blunt finger fractionation. The 's head was delivered atraumatically, followed by the remainder of the 's body. The nose and mouth were suctioned with the bulb suction. The cord was doubly cl amped and cut, and the was handed off the field to [facility] for evaluation. The placenta was delivered spontaneously with umbilical cord traction and fundal massage. The uterus was cleared of all clots and debris. The uterine incision was reapproximated in a running locking fashion with a 0 Vicryl suture. A 2nd layer of the same suture was used to imbricate in horizontal fashion. The gutters were inspected and cleared of blood clots, evidence of meconium seen and irrigation of the pelvis performed. All instruments and retractors were removed. The anterior peritoneum was reapproximated in a running fashion with a 3-0 Vicryl suture. The subfascial tissues were carefully inspected and hemostasis assured with electrocautery and Tino. The fascia was reapproximated in a running fashion with a looped 0 Vicryl suture. The subcutaneous tissues were inspected and hemostasis was assured. The subcutaneous fat layer was reapproximated with 2 layers of continuos sutures of 3-0 Vicryl. The skin was closed in a subcuticular fashion with 4-0 Vicryl. LiquiBand and dressing were applied. The patient tolerated the procedure well. Sponge, lap, needle, and instrument counts were reported as correct x2. The patient was taken to the recovery room, awake, and in stable condition. She did receive 2 grams of IV Ancef preoperatively. Finley Infant total score - 1 minute: 8 total score - 5 minute: 9 OB Delivery Proc Additional Procedures Tubal Ligation at the time of : No
--- NOTE | 2022-04-27 13:37 | W.PM.NB ---
Nerve Block Nerve Block Date Seen: 04/27/22 Type of block requested by surgeon for post-operative analgesia: TAP Side: bilateral Time out performed: Yes Verification of patient name: Yes Verification of date of : Yes Site marking: site marked Name of person performing procedure: Ricky Continuous monitoring Was continuous monitoring of O2 sat, B/P, polymer materials consultant, recorded every 15 minutes?: Yes Procedure Checklist: sterile prep, needles and gloves Ultrasound guided. Images saved: Yes Medications given in 5ml increments after negative aspiration: Marcaine %: 0.25 mL: 30 Needle gauge: 20 and Exparel mL: 10 Patient tolerated procedure well: Yes Additional comments: Needle noted adjacent to nerve Block Charges Block Charge (with Pro Fee): TAP Bilateral Use of Ultrasound Machine for Block: Yes- US Guidance/pain block
--- NOTE | 2022-04-27 13:37 | W.ANESCHARGE ---
Anesthesia Charges Start Date/Time Anesthesia Start Date: 04/27/22 Anesthesia Start Time: 10:45 Stop Date/Time Anesthesia Stop Date: 04/27/22 Anesthesia Stop Time: 12:25 Summary Emergency: Yes
[2022-04-27] MEDS: SODIUM CHLORIDE 0.9 % (FLUSH) 10 ML SYRINGE IVF (18:01)
[2022-04-27] MEDS: KETOROLAC 30 MG/ML inj IVP (18:01)
[2022-04-28] VITALS (14 sets, daily range): BP systolic 101–120; BP diastolic 64–76; PULSE 65–78; RESP 16; TEMP 36.4–36.9; O2SAT 96–98
[2022-04-28] MEDS: KETOROLAC 30 MG/ML inj IVP ×4 (00:43→18:43)
[2022-04-28] MEDS: ENOXAPARIN 40 MG/0.4 ML INJ SUBCUT (00:46)
[2022-04-28 07:20] LABS: Hemoglobin* 9.6 gm/dL (12.0-16.0)
[2022-04-28] MEDS: DOCUSATE SODIUM 100 MG CAPSULE PO (08:34)
--- NOTE | 2022-04-28 10:09 | PM.OBPNCS1 ---
OB - PN: A/P Assessment and Plan (1) Status post delivery: Status: Acute (2) Anemia due to acute blood loss: Status: Acute (3) state: Status: Acute (4) Lactating mother: Status: Acute Plan day: 1 Plan: routine postop care Comments: Assessment: 27 yo G2 now P2 Post- Day1 Acute Anemia Lactating mother Plan: Routine post- cares Iron 325mg daily support as needed Plan to discharge home tomorrow OB - PN: Subj Subjective Time Seen by Provider: 10:09 Date Seen: 04/28/22 Interval history: Into room for introductions and check on patient Shabana is a 27 year old G 2 now P 2 at 40 1/7 weeks gestation that was admitted to the Center on 04/27/22 for active labor, she was planning a TOLAC, but FHT was Cat 3. Repeat was done for intolerance of labor remote from delivery. She had an uncomplicated delivery. She delivered a viable female infant, Pastor. She is breast feeding without concern. the patient has done well. Pain is well controlled with medication. She has been up to use the bathroom, urinating and passing flatus, but no BM yet. Pt reports lochia is light with no clots. Reports no questions or concerns. Plan to discharge home tomorrow. Patient comments: no complaints, pain well controlled, tolerating diet and flatus present Merrick infant status: feeding status: exclusively OB - PN: Obj Exam Physical Exam: Vital signs: Temp Pulse Resp BP Pulse Ox O2 Del Method 97.7 F 65 16 104/65 97 04/28/22 08:35 04/28/22 08:35 04/28/22 09:00 04/28/22 08:35 04/28/22 08:35 04/28/22 08:35 Constitutional: Constitutional: no acute distress Routine HEENT Exam: Head: Present normocephalic Eye: Present normal appearance Routine Neck Exam: Neck: Present full ROM Routine Respiratory Exam: Respiratory: Present CTA bilaterally Routine Cardiovascular Exam: Cardiovascular: Present RRR Routine Abdominal Exam: Abdominal: Present normal bowel sounds, soft and tenderness Fundus: Present firm (u/u) Routine Extremities Exam: Extremities: Present full ROM; Absent pedal edema Routine Back/Spine/Pelvis Exam: Back/Spine: Present full ROM Routine Skin Exam: Skin: Present dry and warm; Absent rash Routine Neurological Exam: Neurological: Present alert and oriented X3 Detailed Neurological Exam: Coma Scale: Eye Opening: Spontaneous (4) Verbal Response: Orientated (5) Routine Psychiatric Exam: Psychiatric: Present normal affect, normal thought process, cooperative, good insight and good judgment Wound Management: Method: adhesive Examination: Present dressed, clean, dry and intact; Absent bloody drainage or serosanguinous drainage Urinary Catheter Management: Urethral: Cath placed during this visit: yes, but has since been removed by the nurse Reason for continuing: decision to DC catheter Removal date: 04/27/22 Removal time: 22:35 OB - PN: Obj Data Labs Labs: Laboratory Results - last 24 hr 04/27/22 04/28/22 08:26 07:11 Hgb 9.6 L Blood Type A Positive Antibody Screen NEGATIVE
[2022-04-28] MEDS: SODIUM CHLORIDE 0.9 % (FLUSH) 10 ML SYRINGE IVF (18:44)
[2022-04-28] MEDS: IBUPROFEN 600 MG TABLET PO (22:42)
[2022-04-29 05:32] VITALS: BP 124/80; PULSE 89; RESP 16; TEMP 36.8; O2SAT 98
[2022-04-29] MEDS: IBUPROFEN 600 MG TABLET PO (05:37)
[2022-04-29] MEDS: ENOXAPARIN 40 MG/0.4 ML INJ SUBCUT (05:38)
--- NOTE | 2022-04-29 08:17 | PM.OBDSCS1 ---
DS: Providers Provider Date Seen: 04/29/22 Date of admission: 04/27/22 08:00 Primary care physician: Juana Dumas PA-C Admitting Clinician: Juana Johnson MD Attending Physician on discharge: Juana Johnson MD Date of Discharge: 04/29/22 Exam Const: Vital Signs, click to edit/add: Vital Signs - 24 hr 04/28/22 08:35 04/28/22 09:00 04/28/22 12:41 Temperature 97.7 F 97.9 F Pulse Rate [Pulse Oximeter] 65 Respiratory Rate 16 16 Blood Pressure [Le ft Arm] Blood Pressure [Ri ght Arm] 104/65 Pulse Oximetry 97 Oxygen Delivery Me thod Room Air 04/28/22 10:00 04/28/22 16:36 04/28/22 13:10 Temperature 98.0 F 97.9 F Pulse Rate [Pulse Oximeter] 78 Respiratory Rate 16 16 Blood Pressure [Le ft Arm] Blood Pressure [Ri ght Arm] 120/76 Pulse Oximetry 98 Oxygen Delivery Me thod Room Air 04/28/22 18:43 04/28/22 20:00 04/29/22 05:32 Temperature 98.1 F 97.6 F 98.3 F Pulse Rate [Pulse Oximeter] 77 89 Respiratory Rate 16 16 Blood Pressure [Le ft Arm] 119/73 Blood Pressure [Ri ght Arm] 124/80 Pulse Oximetry 98 98 Oxygen Delivery Me thod Room Air Room Air Documenting provider has reviewed patient's vital signs: yes Common normals: no apparent distress, average body habitus, oriented x3, no limitations, healthy appearing, alert and well nourished HENMT: Common normals: normocephalic, hearing grossly normal bilaterally and external ears normal Head and scalp: normocephalic Face and sinus: normal facial exam External ear: external ears normal Eye: General eye: normal appearance of both eyes Neck & C-Spine: Common normals: full ROM, supple and no JVD Resp: Common normals: normal respiratory effort, no retractions, no use of accessory muscles and clear to auscultation bilaterally Auscultation: clear to auscultation bilaterally Cardio: Common normals: no JVD, regular rate, regular rhythm, S1 normal heart sound, S2 normal heart sound, no gallops, no clicks, no murmurs and no rub Rate: regular rate Rhythm: regular rhythm Heart sounds: S1 normal and S2 normal GI: Common normals: soft to palpation Inspection: incision (well approximated, no redness) Palpation: soft and tender Details: other (with palpation) Extremity: Common normals: full ROM Neuro: Common normals: oriented x3 Sensorium/orientation: alert Skin: Narrative: Incision well approximated without drainage or redness. OB - DS: Summary Hospital Course Hospital Course: The patient is a 27 year old G 2 P 2 at 40.1 weeks gestation that was admitted to the Center on 04/27/22 for painful contractions with cervical dilation desiring a TOLAC. She had intolerance of labor far from delivery. She had an uncomplicated delivery. She delivered a viable female infant. She is . the patient has done well. Peripartum Data Procedures: Procedures Operation Date: 04/27/22 10:45 Actual Procedure Side Surgeon p Section Juana Johnson MD complications: none Infant Gender: Female Infant Discharge Plan: Home Status at Discharge Functional status at discharge: independent ambulation Overall status at discharge: patient is progressing back to baseline Time Spent with Patient Time attestation: Total time spent providing and/or coordinating discharge services: Discharge Plan Discharge Disposition: Home, Self-Care Date of Admission: 04/27/22 08:00 Primary Care Provider: Juana Dumas Condition: Stable Anticipated Discharge Date/Time: 04/29/22 08:12 Discharge Medications: New docusate sodium 100 mg Capsule 100 mg PO DAILY PRNQty: 100 0RF Rx Instructions: Take 1-2 tablets daily as needed for constipation. ibuprofen 600 mg Tablet 600 mg PO Q6H PRN (Reason: Pain) Qty: 90 0RF oxycodone 5 mg tablet 5 mg PO Q6H PRN (Reason: pain) Qty: 20 0RF Continued ferrous sulfate 325 mg (65 mg iron) tablet 325 mg PO DAILY DHA 200 mg capsule 200 mg PO DAILY Discharge Orders: Discharge Order (Routine); Ordered 04/29/22 Ordered By: Xenia Mustafa Patient Education: OB Over the Counter Medication Information, OB /Breast Feeding Activity Restrictions/Additional Instructions: Follow up with provider at 2 weeks and 6 weeks . Call clinic to make appointment. Activity Level: Activity as Tolerated Discharge Diet: Regular Follow Up Appointments: Xenia Mustafa CNM [Certified Nurse Welder Boilermaker] - (May see any provider, please schedule follow up at 2 weeks and 6 weeks.) Forms: [employer] Info Instructions
[2022-04-29 08:44] VITALS: BP 116/71; PULSE 77; RESP 16; TEMP 36.6; O2SAT 99
[2022-04-29] MEDS: FERROUS SULFATE 325 MG TABLET PO (08:49)
[2022-04-29] MEDS: DOCUSATE SODIUM 100 MG CAPSULE PO (08:49)
== END 2022-04-29 11:25 | disposition home or self-care (01) | DRG 787 ==
LOC: OB OUT 08:13 → OB 08:13
PROVIDERS: Admitting Provider Obstetrics & Gynecology; PCP Physician Assistant Medical; Visit Provider Obstetrics & Gynecology
PROC: 10D00Z1 Extraction of Products of Conception, Low, Open Approach (ICD-10-PCS; CPT 59514; principal; 2022-04-27 10:30)
DX: O66.41 Failed attempted vaginal birth after previous cesarean delivery (principal); O76 Abnormality in fetal heart rate and rhythm complicating labor and delivery; O36.63X0 Maternal care for excessive fetal growth, third trimester, not applicable or unspecified; O99.824 Streptococcus B carrier state complicating childbirth; D62 Acute posthemorrhagic anemia; O90.81 Anemia of the puerperium; O99.214 Obesity complicating childbirth; E66.9 Obesity, unspecified; Z37.0 Single live birth; Z3A.40 40 weeks gestation of pregnancy
CPT/HCPCS: 01961; 36415; 64488; 76942; 84112; 85018; 85025; 86850; 86900; 86901; 87635; 88307; 99140; 99213; A9270; C9290; J0690; J1650; J1885; J2274; J2370; J2405; J2590; J3490; J7120

== ENCOUNTER 2022-06-03 10:15 | Outpatient (CLI) | payer OTHER, SELFPAY ==
--- OUTSIDE RECORDS SUMMARY | 2022-06-03 10:21 | XMS_ITS | Encounter Summary ---
:1995 Author Organization [facility] Address [address] [place] [id number] Care Team Providers Name Role Phone Doctor, Juan MD Primary Care Provider Unavailable Encounter Details Date Type Department Care Team Description 09/07/2010 Office Visit-[facility] - MD Pastor Sorensen [address] [place], [place] [address] [address] [address] [place] [address] [phone] Social History Tobacco Use Types Packs/Day Years Used Date Smoking Tobacco: Never Alcohol Use Standard Drinks/Week Comments No 0 (1 standard drink = 0.6 oz pure alcoho l) Sex Assigned at Date Recorded Not on file documented as of this encounter Progress Notes Nirali García - 09/07/2010 9:00 AM CST Marketing Consultant: Nirali García Status: Final - Signature Encounter: 07 Sep 2010 Type: EYE Letter September 15, 2010 Jax Solomon MD [address], [address] [place] [address] RE: Sonia Allen MR#: [id number] : [address] Solomon: I had the pleasure of seeing Sonia Allen in Pediatric Ophthalmology Clinic at the [facility] [place] on September 07, 2010. Sonia is a [...] to contact me. Sincerely, Nirali García M.D. Reproduction Production Manager Department of Pediatric Ophthalmology and Adult Strabismus JA:larry Job Number: [id number] Electronically signed by:Nirali García M.D. Sep 18 2010 8:52AM CHIMNEY BUILDER HELPER NEY BUILDER HELPER documented in this encounter Plan of Treatment Not on filedocumented as of this encounter Visit Diagnoses Not on filedocumented in this encounter Care Teams Vocational Nurse Relationship Specialty Start Date End Date Doctor, MD Juan PCP - General 09/08/01 03/09/13 documented as of this encounter
--- OUTSIDE RECORDS SUMMARY | 2022-06-03 10:21 | XMS_ITS | Encounter Summary ---
:1995 Author Organization [facility] Address [address] [place] [address]. [place] [address] Care Team Providers Name Role Phone Caterina Elkins MD Primary Care Provider Encounter Details Date Type Department Care Team Description 10/02/2020 Medical Correspondence [facility], [facility] Info Mgmt Non-Provider POST- Srvcs DEPRESSION SCALE [address] [place] [address] [place] [address] WELL-CHILD VISITS [phone] Social History Tobacco Use Types Packs/Day Years Used Date Smoking Tobacco: Never Smokeless Tobacco: Never Alcohol Use Standard Drinks/Week Comments No 0 (1 standard drink = 0.6 oz pure alcoho l) Sex Assigned at Date Recorded Not on file documented as of this encounter Plan of Treatment Not on filedocumented as of this encounter Visit Diagnoses Not on filedocumented in this encounter Care Teams Belt Conveyor Drier Relationship Specialty Start Date End Date Caterina Elkins MD PCP - General Pediatrics 03/10/13 [address] [id number] documented as of this encounter
--- OUTSIDE RECORDS SUMMARY | 2022-06-03 10:21 | XMS_ITS | Clinical Summary ---
:1995 Author Organization [facility] Address [address] [place] [address] Care Team Providers Name Role Phone Caterina Elkins MD Primary Care Provider [phone] Allergies No known active allergies Medications [...] HM ORDERS 1995 COVID-19 Vaccine (#1) 1995 YEARLY PREVENTIVE VISIT 03/13/2015 03/13/2014, 02/22/2013, 07/11/2010, Additional history [...] mplete this topic 66 Years) Care Teams Paper Sheeter Relationship Specialty Start Date End Date Caterina Elkins MD PCP - General Pediatrics 03/10/[address] [address]
--- OUTSIDE RECORDS SUMMARY | 2022-06-03 10:21 | XMS_ITS | Encounter Summary ---
:1995 Author Organization [facility] Address [address] [place] [address] Care Team Providers Name Role Phone Doctor, None MD Primary Care Provider Unavailable Reason for Referral Referral not Required - Closed Specialty Diagnoses / Procedures Referred By Contact Refer red To Contact Diagnoses Routine or child health check [facility] [address] OPHTHALMOLOGY [place], [place] [address] [facility] [address] [address] [address] [place] [address] Phone: [phone] Fax: Referral ID Status Reason Start Date Expiration Date Visits Requ ested Visits Authorized [id number] Closed 07/11/2010 07/11/2010 1 1 R REFINER Reason for Visit Reason Comments Physical Encounter Details Date Type Department Care Team Description 07/11/2010 Office Visit [facility] Jax Guevara Routine or Clinic Héctor Bronsno MD child health check [address] (Primary Dx) [place] [address] Social History Tobacco Use Types Packs/Day Years Used Date Smoking Tobacco: Never Alcohol Use Standard Drinks/Week Comments No 0 (1 standard drink = 0.6 oz pure alcoho l) Sex Assigned at Date Recorded Not on file documented as of this encounter Last Filed Vital Signs Vital Sign Reading Time Taken Comments Blood Pressure 108/62 07/11/2010 9:13 AM SUGAR REFINER Pulse - - Temperature - - Respiratory Rate - - Oxygen Saturation - - Inhaled Oxygen Concentration - - Weight 75.3 kg (166 lb) 07/11/2010 9:13 AM SUGAR REFINER Height 172.1 cm (5' 7.75) 07/11/2010 9:13 AM SUGAR REFINER Body Mass Index 25.43 07/11/2010 9:13 AM SUGAR REFINER Body Mass Index Percentile 93.30 % 07/11/2010 9:13 AM CS T Growth Chart: CDC (Girls, 2-20 Years) documented in this encounter Progress Notes Juanito Borisnorarukhsana Aiyana - 07/11/2010 9:15 AM CST Sonia Allen is an 15 year old female here for a routine health maintenance visit, accompanied by her mother and sister. QUESTIONS/CONCERNS: None FAMILY/ SOCIAL HISTORY Child lives with: mother, brother and 2 sisters Recent family changes/social stressors: none noted Family History: No changes since last physical Language(s) spoken at home: Danish ENVIRONMENTAL RISK ASSESSMENT Is your child around anyone who smokes? NO Seat belt? YES Bike/sport helmet? YES TB exposure? NO Pets in the home? NO Guns/firearms in the home? NO Water source: Headroom water CHICKEN POX HISTORY: Patient has had chicken pox DEVELOPMENTAL/ Behavioral Screening form: Form not indicated at this visit. VISION see nursing notes HEARING see nursing notes REQUIRED VITAL SIGNS COMPLETED: yes BP 108/62 Ht 5' 7.75 (1.721 m) Wt 166 lb (75.297 kg) LMP 07/03/2010 98.02% of growth percentile based on vntekwy-euc-vgb. 97.48% of growth percentile based on bjjten-tdc-fbc. 93.28% of growth percentile based on BMI-for-age. [...] 6 months RTC: 1 year RHM visit R REFINER documented in this encounter Nursing Notes 07/11/2010 9:00 AM CST >> ALAYNA BRAMBILA Sat Jul 11, 2010 10:06 AM VISION: Right eye: 20/30 Left eye: 20/30 Right & Left eyes: 20/40 Audiology Screen: Right ear 500Hz--25dB 1000Hz--15dB 2000Hz--10dB 4000Hz--20dB Left ear 500Hz--20dB 1000Hz--5dB 2000Hz--5dB 4000Hz--10dB >> ALAYNA RBAMBILA Sat Jul 11, 2010 9:16 AM Patient [...] Comme nts PEDIATRIC OPHTHALMOLOGY Routine 09/15/2010 Routine infant or MOVIE STAR REFERRAL child health check HC SCREENING TEST, PURE Routine 07/11/2010 9:40 AM Routine inf ant or TONE, AIR ONLY SUGAR REFINER child health check documented in this encounter Results OPHTHALMOLOGY PEDS REFERRAL (09/15/2010) Narrative This result has an attachment that is no t available. Jax Solomon MD REFERRAL documented in this encounter Visit Diagnoses Diagnosis Routine or child health check - P rimary documented in this encounter Care Teams Mold Making Supervisor Relationship Specialty Start Date End Date Doctor, None, PCP - General 09/08/01 03/09/13 documented as of this encounter
--- OUTSIDE RECORDS SUMMARY | 2022-06-03 10:21 | XMS_ITS | Encounter Summary ---
:1995 Author Organization [facility] Address [address] [place] [address] Care Team Providers Name Role Phone Caterina Elkins MD Primary Care Provider [phone] Reason for Visit Reason Comments Well Child 18 year px. Encounter Details Date Type Department Care Team Description 03/13/2014 Office Visit [facility] Karyna Bhandari or child health check (Primary Dx); Clinic [place]han Mckeon MD Allergic state, initial encounter; [address] Dietary surve illance and counseling [facility] [address] [place] [address] [id number] Social History Tobacco Use Types Packs/Day Years [...] documented in this encounter Patient Instructions Patient InstructionsCoFaby lobato, COMB SETTER - 03/13/2014 9:35 AM CDT Preventive Care at the 15 - 18 Year Visit Growth Percentiles & Measurements Weight: 177 lbs 0 oz / 80.29 kg / 95%ile based on [facility] 2-20 Years uodqfi-jrb-dji data using vitals from 03/13/2014. Length: 5' 9 / 175.3 cm 97%ile based on [facility] 2-20 Years ouerxht-byv-tub data using vitals from 03/13/2014. BMI: Body mass index is 26.13 kg/(m^2). 89%ile based on [facility] 2-20 Years BMI-for-age data using vitalsfrom [...] Never get in a car if the reach lift truck driver has been drinking or using drugs. [...] and 2 sisters Language(s) spoken at home: Vietnamese Recent family changes/social stressors: none noted HEALTH [...] health HIGH risk factors: none Water source: [employer] SPORTS QUESTIONNAIRE: School: [employer] Grade: 10 Sports: Cheerleading Sports Questionnaire sent to scan, see letter. HNSAFETY Car seat belt always worn: Yes ELECTRONIC MEDIA < 2 hours/ day EDUCATION School: [employer] Grade: 10 School performance / [...] 03/06/2014 97%ile based on CDC 2-20 Years xpaeldc-sqz-qrn data using vitals from 03/13/2014. 95%ile based on CDC 2-20 Years qcmuky-bbf-yxg data using vitals from 03/13/2014. 89%ile based [...] Specialty care: No See other orders in [facility]. Dental visit recommended: Yes Vision: abnormal--did not have her glasses Hearing: normal Cleared for sports: Yes BMI at 89%ile based on CDC 2-20 Years BMI-for-age data using vitals from 03/13/2014. OBESITY ACTION PLAN Exercise Counseling Performed Nutrition Counseling Performed 5210 FOLLOW-UP: in 1 year for a Preventive Care visit Karyna Bhandari MD, MD [facility] documented in this encounter Nursing Notes [...] SCREENING TEST, Routine 03/13/2014 11:44 AM Routine or child PURE TONE, AIR ONLY CDT health check documented in this encounter Visit Diagnoses Diagnosis Dietary surveillance and counseling Allergic state, initial encounter documented in this encounter Care Teams Computed Tomography Technician Relationship Specialty Start Date End Date Caterina Elkins MD PCP - General Pediatrics 03/10/13 [address] [address] documented as of this encounter
--- OUTSIDE RECORDS SUMMARY | 2022-06-03 10:21 | XMS_ITS | Encounter Summary ---
:1997 Author Organization [facility] Address [address] [place], [place] [address] Care Team Providers Name Role Phone Caterina Elkins MD Primary Care Provider [phone] Reason for Visit Reason Onset Date Comments Orders 03/13/2014 LAB ORDERS Encounter Details Date Type Department Care Team Description 03/13/2014 Telephone [facility] Karyna Bhandari Order s (LAB ORDERS) Clinic [place] MD [facility] [address] [place], [place] [phone] Social History Tobacco Use Types Packs/Day Years Used Date Smoking Tobacco: Never Alcohol Use Standard Drinks/Week Comments No 0 (1 standard drink = 0.6 oz pure alcoho l) Sex Assigned at Date Recorded Not on file documented as of this encounter Plan of Treatment Not on filedocumented as of this encounter Visit Diagnoses Not on filedocumented in this encounter Care Teams Aircraft Engine Mechanic Supervisor Relationship Specialty Start Date End Date Caterina Elkins MD PCP - General Pediatrics 03/10/13 [address] [place] [address] documented as of this encounter
--- OUTSIDE RECORDS SUMMARY | 2022-06-03 10:21 | XMS_ITS | Encounter Summary ---
:1997 Author Organization [facility] Address [address] [place] [address] Care Team Providers Name Role Phone Caterina Elkins MD Primary Care Provider [phone] Encounter Details Date Type Department Care Team Description 03/19/2014 Orders Only [facility] Vit evans D deficiency (Primary Dx); [facility] Routine or child heal th check; [address] Dietary surveillance and cou nseling; [place] [address] Allergic state, initial enco unter [phone] Social History Tobacco Use Types Packs/Day Years [...] HIV ANTIGEN ANTIBODY Routine 03/19/2014 9:35 Routine Or Results for this COMBO AM CDT [...] results section. COMPREHENSIVE Routine 03/19/2014 9:35 Routine Infant Or Result s for this METABOLIC PANEL AM CDT Child Health Check proced ure are in the results section. ALLERGY PEDIATRIC Routine 03/19/2014 9:35 Allergic state, Resu lts for this MARCH PROFILE IGE AM CDT initial encounter proce dure are in the results section. documented in this encounter Results (ABNORMAL) Allergy pediatric March profile IgE (03/19/2014 9:35 AM CDT) Component Value Ref Test Analysis Performed At [facility] gist Range Method Time Signature IGE [...] LAB - BLOOD ORDERABLES Performing Organization Address City/[facility] Phon e Number [address] LABS (ABNORMAL) Vitamin D Deficiency (03/19/2014 9:35 AM CDT) athologist Signature Vitamin D 19 (L) 30 - 75 [facility] Deficiency ug/L [facility] LABS Comment: Season, race, dietary intake, and treatm ent affect the concentration of 35-woenxip-Fixhoqy D. Values may decrea se during winter [...] questions, pl ease contact the laboratory at [phone]. Specimen Anatomical Collection Method Collection Time Receive d Time (Source) Location / / Volume Laterality Blood specimen 03/19/2014 9:35 AM 014 9:40 (specimen) CDT AM CDT Zohaib Bhandari MD LAB - BLOOD ORDERABLES Performing Organization Address City/[facility] Phon e Number [place] [id number] [facility] LABS Comprehensive metabolic panel (03/19/2014 9:35 AM CDT) athologist Signature Sodium 138 133 - 144 [facility] mmol/L [place] Potassium 3.6 3.4 - 5.3 [facility] mmol/L [place] Chloride 105 96 - 110 [facility] mmol/L [place] Carbon Dioxide 25 20 - 32 [facility] mmol/L [place] Anion Gap 8 6 - 17 [facility] mmol/L [place] Glucose 88 70 - 99 [facility] mg/dL [place] Comment: Effective 02/20/2014, the reference range for this assay has changed to reflect new instrumentation/methodology. Urea Nitrogen 8 7 - 19 mg/dL [facility] [place] Comment: Effective 02/20/2014, the reference range for this assay has changed to reflect new instrumentation/methodology. Creatinine 0.67 0.50 - 1.00 [facility] mg/dL [place] GFR Estimate >90 >60 mL/min/1.7m2 [facility] Non GFR Calc [place] GFR Estimate If Black >90 >60 mL/min/1.7m2 [facility] GFR Calc [place] Calcium 9.4 9.1 - 10.3 mg/dL [facility] [place] Comment: Effective 02/20/2014, the reference range for this assay has changed to reflect new instrumentation/methodology. Bilirubin Total 0.7 0.2 - 1.3 mg/dL [facility] Albumin 4.2 3.9 - 5.1 g/dL [facility] [place] Protein Total 7.5 6.8 - 8.8 g/dL [facility] [place] Alkaline Phosphatase 71 40 - 150 U/L [facility] ALT 11 0 - 50 U/L [facility] AST 7 0 - 35 U/L [facility] Specimen Anatomical Collection Method Collection Time Receive d Time (Source) Location / / Volume Laterality Blood specimen 03/19/2014 9:35 AM 014 9:40 (specimen) CDT AM CDT Zohaib Bhandari MD LAB - BLOOD ORDERABLES Performing Organization Address City/State/ZIP Code Phon e Number [facility] [place] [address] [place] [address] [facility] [address] [place], [place] [address] TSH with free T4 reflex (03/19/2014 9:35 AM CDT) athologist Signature TSH 2.11 0.40 - 4.00 [facility] mU/L [place] Comment: Effective 02/20/2014, the reference range for this assay has changed to reflect new instrumentation/methodology. Specimen Anatomical Collection Method Collection Time Receive d Time (Source) Location / / Volume Laterality Blood specimen 03/19/2014 9:35 AM 014 9:40 (specimen) CDT AM CDT Zohaib Bhandari MD LAB - BLOOD ORDERABLES Performing Organization Address City/State/ZIP Code Phon e Number [facility] [address], [place] [address] [facility] [address], [place] [address] HIV Antigen Antibody Combo (03/19/2014 9:35 AM CDT) [facility] Method Time Signature HIV Antigen Nonreactive NR [facility] Antibody HIV-1 p24 Ag & HIV-1/HIV-2 Ab Not Detected [facility] LABS Specimen Anatomical Collection Method Collection Time Receive d Time (Source) Location / / Volume Laterality Blood specimen 03/19/2014 9:35 AM 014 9:40 (specimen) CDT AM CDT Zohaib Bhandari MD LAB - BLOOD ORDERABLES Performing Organization Address City/State/ZIP Code Phon e Number [facility] [address] [place] [address] [facility] LABS Lipid panel reflex to direct LDL (03/19/2014 9:35 AM CDT) athologist Signature Cholesterol 129 <170 mg/dL [facility] Comment: LDL Cholesterol is the primary guide to therapy. The NCEP recommends further evaluation of: patients with cholesterol greater than 200 mg/dL if additional risk facto rs are present, cholesterol greater than 240 mg/dL, triglycerides greater than 1 50 mg/dL, or HDL less than 40 mg/dL. Triglycerides 50 0 - 150 mg/dL [facility] [place] HDL Cholesterol 66 >45 mg/dL [facility] [place] LDL Cholesterol Calculated 53 0 - 129 mg/dL [facility] Comment: LDL Cholesterol is the primary guide to therapy: LDL-cholesterol goal in high risk patients is <100 mg/dL and in very high risk patients is <70 mg/dL. VLDL-Cholesterol 10 0 - 30 mg/dL [facility] [place] Cholesterol/HDL Ratio 2.0 0.0 - 5.0 [facility] Specimen Anatomical Collection Method Collection Time Receive d Time (Source) Location / / Volume Laterality Blood specimen 03/19/2014 9:35 AM 014 9:40 (specimen) CDT AM CDT Zohaib Bhandari MD LAB - BLOOD ORDERABLES Performing Organization Address City/State/ZIP Code Phon e Number [facility] [place] [address] [place] [address] [facility] [address] [place], [place] [address] CBC with platelets differential (03/19/2014 9:35 AM CDT) [facility] gist Method Time Signature WBC 5.2 4.0 - [facility] 11.0 [facility] 10e9/L [place] RBC Count 3.92 3.7 - 5.3 [facility] 10e12/L [facility] Hemoglobin 11.8 11.7 - WELL[facility] 15.7 g/dL [facility] Hematocrit 35.7 35.0 - WELL[facility] 47.0 % [facility] MCV 91 77 - 100 [facility] MCH 30.1 26.5 - [facility] 33.0 pg [facility] MCHC 33.1 31.5 - WELL[facility] 36.5 g/dL [facility] RDW 11.6 10.0 - WELL[facility] 15.0 % [facility] Platelet Count 270 150 - 450 [facility] 10e9/L [facility] Diff Method Automated [facility] % Neutrophils 47.1 % [facility] % Lymphocytes 41.6 % [facility] % Monocytes 7.0 % [facility] % Eosinophils 3.7 % [facility] % Basophils 0.6 % [facility] Absolute 2.4 1.3 - 7.0 [facility] Neutrophil 10e9/L [facility] Absolute 2.2 1.0 - 5.8 [facility] Lymphocytes 10e9/L [facility] Absolute 0.4 0.0 - 1.3 [facility] Monocytes 10e9/L [facility] Absolute 0.2 0.0 - 0.7 [facility] Eosinophils 10e9/L [facility] Absolute 0.0 0.0 - 0.2 [facility] Basophils 10e9/L [facility] Specimen Anatomical Collection Method Collection Time Receive d Time (Source) Location / / Volume Laterality Blood specimen 03/19/2014 9:35 AM 014 9:40 (specimen) CDT AM CDT Zohaib Bhandari MD LAB - BLOOD ORDERABLES Performing Organization Address City/State/ZIP Code Phon e Number [facility] [address] [place], [place] [address] [address] documented in this encounter Visit Diagnoses Diagnosis Vitamin D deficiency - Primary Unspecified vitamin D deficiency Dietary surveillance and counseling Allergic state, initial encounter documented in this encounter Care Teams Rough Rice Grader Relationship Specialty Start Date End Date Caterina Elkins MD PCP - General Pediatrics 03/10/13 [address] [address] documented as of this encounter
--- OUTSIDE RECORDS SUMMARY | 2022-06-03 10:21 | XMS_ITS | Encounter Summary ---
:1997 Author Organization [facility] Address [address] [place] [address] Care Team Providers Name Role Phone Caterina Elkins MD Primary Care Provider [phone] Reason for Visit Reason Comments Imm/Inj 3rd HPV and Menactra Encounter Details Date Type Department Care Team Description 07/19/2013 Allied Health/Nurse Health [facility] Imm /Inj (3rd HPV and Visit Clinic [place] Menact) [address] [place] [address] Social History Tobacco Use Types [...] diseases documented in this encounter Care Teams Journeyman Apprentice Electricians Relationship Specialty Start Date End Date Caterina Elkins MD PCP - General Pediatrics 03/10/13 [address] [place], [place] [phone] documented as of this encounter
--- OUTSIDE RECORDS SUMMARY | 2022-06-03 10:21 | XMS_ITS | Encounter Summary ---
:1997 Author Organization [facility] Address [address] [place] [address]. [place] [address] Care Team Providers Name Role Phone Caterina Elkins MD Primary Care Provider [phone] Encounter Details Date Type Department Care Team Description 11/20/2020 Medical Correspondence [facility] Scan, [facility] Info Mgmt Non-Provider POST-AMADEO Srvcs DEPRESSION SCALE [address] [place] [address] [place] [address] WELL-CHILD VISITS [phone] Social History Tobacco Use Types Packs/Day Years [...] on filedocumented in this encounter Care Teams Stacker And Sorter Operator Relationship Specialty Start Date End Date Caterina Elkins MD PCP - General Pediatrics 03/10/13 [address] [id number] documented as of this encounter
--- OUTSIDE RECORDS SUMMARY | 2022-06-03 10:21 | XMS_ITS | Encounter Summary ---
:1997 Author Organization [facility] Address [address] [place] [address] Care Team Providers Name Role Phone Doctor, None MD Primary Care Provider Unavailable Reason for Visit Reason Comments Well Child Encounter Details Date Type Department Care Team Description 04/05/2006 Office Visit [facility] Octavio Elkins CHILD HEALTH Clinic [place] MD Miriam EXAM (Primary Dx) [address] [place] [address] [place] [phone] (Wo rk) Social History Tobacco Use Types Packs/Day Years Used Date Smoking Tobacco: Never Alcohol Use Standard Drinks/Week Comments Not Asked [...] in this encounter Progress Notes Octavio Elkins - 04/05/2006 8:47 AM CDT [address] [...] since last physical Language(s) spoken at home: [place]uran 3rd grade ENVIRONMENTAL RISK ASSESSMENT Is your child around anyone who smokes? NO Booster seat/ seat belt? YES Bike/ sport helmet? YES TB exposure? NO Pets in the home? YES 8 fish 2 dogs 2 cats bird & hamster Guns/firearms in the home? NO Water source: [employer] water CHICKEN POX HISTORY: Patient has had [...] (43.1kg) 91.48% of growth percentile based on rrquvqj-gvp-fce. 96.32% of growth percentile based on mteczh-mkx-nsw. 94.49% of growth percentile based on BMI-for-age. [...] up to date See other orders in [facility] Referrals/Ongoing Specialty care: Yes, for eye [...] changes in family history since last physical. Mihir Prescreen: Not applicable. Lead Risk Questionaire: Not [...] rimary documented in this encounter Care Teams Shingler Relationship Specialty Start Date End Date Doctor, Juan, PCP - General 09/08/01 03/09/13 documented as of this encounter
--- OUTSIDE RECORDS SUMMARY | 2022-06-03 10:21 | XMS_ITS | Encounter Summary ---
:1997 Author Organization [facility] Address [address] [place] [address]. [place] [address] Care Team Providers Name Role Phone Caterina Elkins MD Primary Care Provider [phone] Encounter Details Date Type Department Care Team Description 05/29/2020 Medical Correspondence [facility] Scan, [facility] Info Mgmt Non-Provider POST-AMADEO Srvcs DEPRESSION SCALE [address] [place] [address] [place] [address] WELL-CHILD VISITS [phone] Social History Tobacco Use Types Packs/Day Years [...] on filedocumented in this encounter Care Teams Blade Aligner Relationship Specialty Start Date End Date Caterina Elkins MD PCP - General Pediatrics 03/10/13 [address] [address] documented as of this encounter
--- OUTSIDE RECORDS SUMMARY | 2022-06-03 10:21 | XMS_ITS | Encounter Summary ---
:1997 Author Organization [facility] Address [address] [place] [address] Care Team Providers Name Role Phone Doctor, Juan LEIJA Primary Care Provider Unavailable Caterina Elkins MD Primary Care Provider [phone] Reason for Visit Reason Comments Well Child Encounter Details Date Type Department Care Team Description 02/22/2013 Office Visit [facility] Caterina Elkins infant or child health check (Primary Dx); Clinic Héctor Pineda MD Seasonal allergic rhinitis [address] [place] [address] [place] [address] [phone] (Wo rk) Social History Tobacco Use Types [...] Weight: 95.81%ile based on CDC 2-20 Years kdvpwi-mae-fim data. Length: 97.58%ile based on CDC 2-20 Years nnhejjn-uik-bfs data. BMI: 89.9%ile based on CDC 2-20 [...] whole grains every day. Less healthy foods--like martiniquais fries, candy, and chips--should be eaten rarely. [...] your teen is old enough for a dedicated truck driver???s license, encourage safe driving. Teach [...] this visit. Based on recommendations from the [place] [employer], at this visityour child [...] away. Next checkup at: PARENT NOTES: ?? [phone] [facility], [address] [place] [address], [place] [address]. All rights reserved. This information is not [...] since last physical Language(s) spoken at home: Northern Irish FLV does apply for the following reason: [facility] Care Program (MHCP) enrollee: [place] Medical[place]istance ([place]), [facility], or a Prepaid Medical Assistance Program (PMAP) [...] 176 lb (79.833 kg) BMI 25.99 kg/m2 [facility] 02/13/2013 97.58%ile based on CDC 2-20 Years bxipvbd-afw-txq data. 95.81%ile based on CDC 2-20 Years osgprt-gio-omu data. 89.9%ile based on CDC 2-20 Years [...] activities EDUCATION / EMPLOYMENT Concerns: no School: [employer] Grade:9th MENTAL HEALTH Concerns: no MENSTRUAL [...] thevaccines administered today. [facility] Referrals/Ongoing Specialty care: No Dental visit recommended: [...] unspecified documented in this encounter Care Teams Piece Dyer Relationship Specialty Start Date End Date Doctor, Juan, PCP - General 09/08/01 03/09/13 Caterina Elkins MD PCP - General Pediatrics 03/10/13 Solange E AMANDA [address] [address] documented as of this encounter
--- OUTSIDE RECORDS SUMMARY | 2022-06-03 10:21 | XMS_ITS | Encounter Summary ---
:1997 Author Organization [facility] Address [address] [place] [address] Care Team Providers Name Role Phone Doctor, None MD Primary Care Provider Unavailable Reason for Visit Reason Comments Cough Encounter Details Date Type Department Care Team Description 07/14/2004 Office Visit [facility] VilmaSurekha moser ACUTE SINUSITIS NOS Clinic [place] MD Jamia (Primary Dx) [address] [facility] AND SP CTR [place], [place] [address] [facility] [address] [place], [place] [phone] (Wo rk) Social History Tobacco Use Types Packs/Day Years Used Date Smoking Tobacco: Never Assessed Sex Assigned at Date Recorded Not on file documented as of this encounter Last Filed Vital Signs Vital Sign Reading Time Taken Comments Blood Pressure - - Pulse - - Temperature 36.1 ??C (97 ??F) 07/14/2004 11:13 AM MACHINE BOSS Respiratory Rate - - Oxygen Saturation - - Inhaled Oxygen Concentration - - Weight 29.5 kg (65 lb) 07/14/2004 11:13 AM MACHINE BOSS Height - - Body Mass Index - - documented in this encounter Progress Notes 07/14/2004 11:00 AM MACHINE BOSS Sonia Allen is a 9 year old [...] Primary documented in this encounter Care Teams Plate Conditioner Relationship Specialty Start Date End Date Doctor, Juan, PCP - General 09/08/01 03/09/13 documented as of this encounter
--- OUTSIDE RECORDS SUMMARY | 2022-06-03 10:21 | XMS_ITS | Encounter Summary ---
:1997 Author Organization [facility] Address [address] [place] [address]. [place] [address] Care Team Providers Name Role Phone Caterina Elkins MD Primary Care Provider [phone] Encounter Details Date Type Department Care Team Description 05/05/2020 Medical Correspondence [facility] [place] [facility] Scan, [facility] Info Mgmt Non-Provider POST- Srvcs DEPRESSION SCALE [address] [place] [address] [place] [address] WELL-CHILD VISITS [phone] Social History Tobacco Use Types Packs/Day Years [...] on filedocumented in this encounter Care Teams Landscaper Relationship Specialty Start Date End Date Caterina Elkins MD PCP - General Pediatrics 03/10/13 [address] [address] [address] documented as of this encounter
--- OUTSIDE RECORDS SUMMARY | 2022-06-03 10:22 | XMS_ITS | Encounter Summary ---
:1997 Author Organization [facility] Address [address] [place] [address] Care Team Providers Name Role Phone Doctor, None MD Primary Care Provider Unavailable Reason for Referral - Closed Specialty Diagnoses / Procedures Referred By Contact Refer red To Contact Diagnoses Myopia Surekha Garrido MD [facility] AND [facility] CTR [address] [place] [address] 4 Referral ID Status Reason Start Date Expiration Date Visits Requ ested Visits Authorized [id number] Closed 07/09/2003 07/24/2011 1 1 STANT SALES MANAGER Reason for Visit Reason Comments Other needs eyes and ears checked Encounter Details Date Type Department Care Team Description 07/09/[address] [facility] Surekha Garrido CHILD HEALTH EXAM (Primary Dx); Clinic Héctor Blandon MD MYOPIA 303 [facility] AND SP CTR [place] [address] [address] [facility] [address] [place], [place] [phone] (Wo rk) Social History Tobacco Use Types Packs/Day Years Used Date Smoking Tobacco: Never Assessed Sex Assigned at Date Recorded Not on file documented as of this encounter Last Filed Vital Signs Vital Sign Reading Time Taken Comments Blood Pressure 92/50 07/09/2003 2:15 PM ASSISTANT SALES MANAGER Pulse - - Temperature 36.4 ??C (97.6 ??F) 07/09/2003 2:15 PM ASSISTANT SALES MANAGER Respiratory Rate - - Oxygen Saturation - - Inhaled Oxygen Concentration - - Weight 26.8 kg (59 lb) 07/09/2003 2:15 PM ASSISTANT SALES MANAGER Height 123.2 cm (4' 0.5) 07/09/2003 2:15 PM ASSISTANT SALES MANAGER Body Mass Index 17.63 07/09/2003 2:15 PM ASSISTANT SALES MANAGER Body Mass Index Percentile 88.69 % 07/09/2003 2:15 PM CS T Growth Chart: [facility] (Girls, 2-20 Years) documented in [...] documented in this encounter Care Teams Manager Community Development Relationship Specialty Start Date End Date Doctor, None, PCP - General 09/08/01 03/09/13 documented as of this encounter
--- OUTSIDE RECORDS SUMMARY | 2022-06-03 10:22 | XMS_ITS | Encounter Summary ---
:1997 Author Organization [facility] Address [address] [place] [address] Care Team Providers Name Role Phone DoctorJuan MD Primary Care Provider Unavailable Reason for Visit Reason Comments otitis media-acute right Right OM Encounter Details Date Type Department Care Team Description 09/14/2003 Abstract [facility] Urgent Lizzie Melgar PA-C [facility] [address] [facility] [address] [address] [place] [phone] Social History Tobacco Use Types Packs/Day Years Used Date Smoking Tobacco: Never Assessed Sex Assigned at Date Recorded Not on file documented as of this encounter Progress Notes 09/14/2003 11:59 PM TOP STOP ATTACHER Zithromax 200/5ml 1 1/2 qd x 3 25ml Motrin, Increase fluids THIS INFORMATION HAS BEEN ABSTRACTED FRO M THE URGENT CARE CHART documented in this encounter Plan of Treatment Not on filedocumented as of this encounter Visit Diagnoses Not on filedocumented in this encounter Care Teams Lead Technologist In Cytogenetics Relationship Specialty Start Date End Date Doctor, MD Juan PCP - General 09/08/01 03/09/13 documented as of this encounter
--- OUTSIDE RECORDS SUMMARY | 2022-06-03 10:22 | XMS_ITS | Encounter Summary ---
:1997 Author Organization [place] Address [address] [place] [address] Care Team Providers Name Role Phone Doctor, Juan LEIJA Primary Care Provider Unavailable Encounter Details Date Type Department Care Team Description 11/14/2002 Abstract [facility] in[facility]tha Héctor Fei, Marialuisa [address] [place] [address] Social History Tobacco Use Types Packs/Day [...] filedocumented in this encounter Care Teams Lead Technical Writer Relationship Specialty Start Date End Date DoctorJuan MD PCP - General 09/08/01 03/09/13 documented as of this encounter
--- OUTSIDE RECORDS SUMMARY | 2022-06-03 10:22 | XMS_ITS | Encounter Summary ---
:1997 Author Organization [facility] Address [address] [place] [address] Care Team Providers Name Role Phone Doctor, Juan MD Primary Care Provider Unavailable Reason for Referral - Closed Specialty Diagnoses / Procedures Referred By Contact Refer red To Contact Diagnoses Routine infant or child health check Surekha Garrido MD [facility] AND SP CTR [address] [place] [address] 4 Referral ID Status Reason Start Date Expiration Date Visits Requ ested Visits Authorized [id number] Closed 03/25/2004 07/24/2011 1 1 Reason for Visit Reason Comments Well Child Encounter Details Date Type Department Care Team Description 03/25/2004 Office Visit [facility] Surekha Garrido CHILD HEALTH EXAM (Primary Dx); Clinic Héctor Blandon MD MYOPIA [address] [place] [address] [address] SP CTR [place] [address] [facility] [address] [place], [place] [phone] (Wo rk) Social History Tobacco Use [...] 03/25/2004 2:45 PM CD T Growth Chart: [facility] (Girls, 2-20 Years) documented in this encounter Progress Notes 03/25/2004 2:45 PM CDT Sonia Allen is an 8 year old female here for a routine health maintenance visit, accompanie d by her sister(s) and maternal grandmother QUESTIONS / CONCERNS: NO HEALTH HISTORY SINCE LAST SIT: There have been: No surgery, major illness or injury since last physical exam Medical Hx: Revie chelita of patient's past medical history indicates: NO [...] are no concerns. No recent social changes/stressors. [place] Prescreen: Not applicable. Lead Risk Questionaire: Not [...] Myopia documented in this encounter Care Teams Mobile Marketing Specialist Relationship Specialty Start Date End Date Doctor, None, PCP - General 09/08/01 03/09/13 documented as of this encounter
--- OUTSIDE RECORDS SUMMARY | 2022-06-03 10:22 | XMS_ITS | Encounter Summary ---
:1997 Author Organization [facility] Address [address] [place] [address] Care Team Providers Name Role Phone Doctor, None MD Primary Care Provider Unavailable Reason for Visit Reason Comments Derm Problem Encounter Details Date Type Department Care Team Description 03/23/[address] [facility] Surekha Garrido D [facility] Clinic [place] MD Jamia (Primary Dx) 303 [email or web address] AND SP CTR [place], [place] [address] [facility] [address] [place], [place] [phone] [address] (Wo rk) Social History Tobacco Use [...] of itching, noticed it yesterday. Lelia Johnson INSULATION SUPERVISOR documented in this encounter Plan of Treatment Not on filedocumented as of this encounter Procedures Procedure Name Priority Date/Time Associated Diagnosis Comme nts HCL CULTURE, Routine 03/23/2004 2:29 PM Skin Disorders Nec Res ults for this FUNGUS, CDT procedure are i n SKIN,HAIR,NAIL the results section. documented in this encounter Results FUNGUS CULTURE, SKIN,HAIR,NAIL (03/23/2004 2:29 PM CDT) [facility] Method Time Signature Specimen Skin [facility] Description [facility] Culture Micro No growth [facility] after [address] [facility] Report status FINAL [facility] [id number] [facility] Specimen Anatomical Collection Method Collection Time Receive d Time (Source) Location / / Volume Laterality SPECIMEN FROM SKIN 03/23/2004 2:29 PM 2:34 / Unknown CDT PM CDT Surekha Garrido MD LABORATORY Performing Organization Address City/State/ZIP Code Phon e Number [facility] [address] [place] [address] [facility] documented in this encounter Visit Diagnoses Diagnosis Other specified disorder of skin - Prima ry documented in this encounter Care Teams Fitness Teacher Relationship Specialty Start Date End Date Doctor, None, PCP - General 09/08/01 03/09/13 documented as of this encounter
--- OUTSIDE RECORDS SUMMARY | 2022-06-03 10:22 | XMS_ITS | Encounter Summary ---
:1997 Author Organization [place] Address [address] [place] [address] Care Team Providers Name Role Phone DoctorJuan MD Primary Care Provider Unavailable Reason for Visit Reason Comments Derm Problem Encounter Details Date Type Department Care Team Description 08/06/2002 Office Visit [facility] Janey SKIN DISOR DERS [facility] MD Tir[place] (Primary Dx) [place] [address] [place] [address] Social History Tobacco Use Types Packs/Day Years Used Date Smoking Tobacco: Never Assessed Sex Assigned at Date Recorded Not on file documented as of this encounter Last Filed Vital Signs Vital Sign Reading Time Taken Comments Blood Pressure - - Pulse - - Temperature 36.6 ??C (97.9 ??F) 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
--- OUTSIDE RECORDS SUMMARY | 2022-06-03 10:22 | XMS_ITS | Encounter Summary ---
:1997 Author Organization [place] Address [address] [place] [address] Care Team Providers Name Role Phone DoctorJuan MD Primary Care Provider Unavailable Reason for Visit Reason Comments immun. dates Encounter Details Date Type Department Care Team Description 04/11/2003 Telephone [facility] Yaakov balderrama, Surekha Blandon MD [facility] [address] [place], [place] [phone] [address] [facility] [phone] [place], [place] [phone] (Wo rk) Social History Tobacco Use Types Packs/Day Years Used Date Smoking Tobacco: Never Assessed Sex Assigned at Date Recorded Not on file documented as of this encounter Miscellaneous Notes Telephone Encounter - 04/11/2003 11:59 PM CDT >> AMAYA ROSS [facility] Apr 11, 2003 3:25 PM Paper chart reviewed, we only have record of kinder shots. Call to mom at work, she is not avail. Left message on v/m at home re above info. Amaya Ross RN >> VALE ZAMORA Erika Apr 11, 2003 1:51 PM >> CALL RECEIVED. Contact: kathy bedolla [phone] please check paper cht for transfered immun. dates. mom needs all dates. [facility] has kinder shots onlyplease call mom when done. cht requested. Vale Zamora LPN documented in this encounter Plan of Treatment Not on filedocumented as of this encounter Visit Diagnoses Not on filedocumented in this encounter Care Teams Die Press Operator Relationship Specialty Start Date End Date Doctor, None, MD PCP - General 09/08/01 03/09/13 documented as of this encounter
[2022-06-03 15:19] LABS: Albumin* 4.4 g/dL (3.3-5.0); Chloride* 107 mmol/L (96-114); Sodium* 139 mmol/L (135-149)
[2022-06-03 15:20] LABS: Potassium* 4.3 mmol/L (3.6-5.1)
[2022-06-03 15:21] LABS: Cholesterol* 150 mg/dL (90-199)
[2022-06-03 15:22] LABS: Alanine Aminotransferase* 16 U/L (4-35); Alkaline Phosphatase* 85 U/L (40-150); Aspartate Amino Transferase* 19 U/L (12-35); Bilirubin Total* 0.5 mg/dL (0.1-1.5); Blood Urea Nitrogen* 12 mg/dL (5-24); Carbon Dioxide* 25 mmol/L (20-32); Creatinine* 0.8 mg/dL (0.5-1.5); Estimated Glomerular Filt Rate 105 ml/min; Glucose* 82 mg/dL (60-115); Total Protein* 7.1 g/dL (6.0-8.3)
[2022-06-03 15:23] LABS: Calcium* 9.6 mg/dL (8.4-10.6); HDL Cholesterol* 61 mg/dL (>=50); LDL Cholesterol Calculated 79 mg/dL (<100); Triglycerides* 52 mg/dL (40-149)
== END 2022-06-03 10:16 | disposition home or self-care (01) ==
PROVIDERS: PCP Family Medicine; Visit Provider Family Medicine
DX: Z13.1 Encounter for screening for diabetes mellitus (principal); Z13.6 Encounter for screening for cardiovascular disorders
CPT/HCPCS: 80053; 80061